=== PATIENT | male | born 1950 | race Caucasian/White ===

== ENCOUNTER 2020-01-27 10:13 | Outpatient (REF) | payer OTHER, MEDICARE, SELFPAY ==
[2020-01-27 13:09] LABS: Hemoglobin 14.9 g/dl (14.0-18.0); Mean Corpuscular HGB Conc 33.9 g/dl (31.0-36.0); Mean Corpuscular Hemoglobin 30.8 pg (27.0-33.0); Mean Corpuscular Volume 91.1 fL (80-98); Mean Platelet Volume 10.3 fL (9.4-12.4); Platelet Count 475 X10*3/uL (160-400); Red Blood Count 4.83 X10*6/uL (4.60-5.80); Red Cell Distribution Width 13.7 % (11.0-16.0); White Blood Count 11.8 X10*3/uL (4.8-10.8)
[2020-01-27 13:38] LABS: Alanine Aminotransferase 21 U/L (0-40); Albumin Level 4.2 g/dL (3.5-5.0); Alkaline Phosphatase 109 U/L (39-117); Anion Gap 12 (12-20); Aspartate Amino Transferase 20 U/L (5-37); Bilirubin Total 0.8 mg/dL (0.0-1.0); Blood Urea Nitrogen 16 mg/dL (9-16); Calcium 9.1 mg/dL (8.4-10.2); Carbon Dioxide 27 mmol/L (22-29); Chloride 104 mmol/L (96-108); Cholesterol 120 mg/dL; Estimated Glomerular Filt Rate > 60; Glucose Fasting 91 mg/dL (60-99); HDL Cholesterol 35 mg/dL; LDL Cholesterol Calculated 67 mg/dl; Potassium 3.9 mmol/l (3.3-5.1); Sodium 139 mmol/L (135-145); Total Protein 6.9 g/dL (6.5-8.0); Triglycerides 90 mg/dL
[2020-01-27 14:26] LABS: Prostate Specific Antigen Scr 0.47 ng/mL (<0.05-4.0)
== END 2020-01-27 10:14 | disposition home or self-care (01) ==
LOC: HO.MANLDS 10:13
PROVIDERS: PCP Internal Medicine; Visit Provider Internal Medicine
DX: E88.81 Metabolic syndrome and other insulin resistance (principal)
CPT/HCPCS: 36415; 80053; 80061; 84153; 85027

== ENCOUNTER 2020-09-14 11:12 | Outpatient (REF) | payer OTHER, MEDICARE, SELFPAY ==
[2020-09-14 12:57] LABS: MANUAL DIFF FLAG NO
[2020-09-14 13:01] LABS: Basophils Absolute Auto 0.1 X10*3/uL (0.0-0.2); Eosinophils Absolute Auto 2.3 X10*3/uL (0.0-0.4); Eosinophils Percent Auto 16.3 % (0-4); Hematocrit 44.6 % (42-52); Hemoglobin 14.9 g/dl (14.0-18.0); Imm Gran Abs Auto 0.04 X10*3/uL (0.00-0.03); Imm Gran Pct Auto 0.3 % (0.0-0.4); Lymphocytes Absolute Auto 3.4 X10*3/uL (1.2-4.9); Lymphocytes Percent Auto 24.2 % (20-40); Mean Corpuscular HGB Conc 33.4 g/dl (31.0-36.0); Mean Corpuscular Hemoglobin 30.7 pg (27.0-33.0); Mean Corpuscular Volume 91.8 fL (80-98); Mean Platelet Volume 10.5 fL (9.4-12.4); Monocytes Absolute Auto 1.3 X10*3/uL (0.1-1.2); Monocytes Percent Auto 9.3 % (2-11); Neutrophils Percent Auto 48.9 % (45-73); Platelet Count 424 X10*3/uL (160-400); Red Blood Count 4.86 X10*6/uL (4.60-5.80); Red Cell Distribution Width 14.2 % (11.0-16.0); White Blood Count 14.2 X10*3/uL (4.8-10.8)
[2020-09-14 13:32] LABS: Alanine Aminotransferase 23 U/L (0-40); Albumin Level 4.4 g/dL (3.5-5.0); Alkaline Phosphatase 119 U/L (39-117); Anion Gap 14 (12-20); Aspartate Amino Transferase 20 U/L (5-37); Bilirubin Total 0.7 mg/dL (0.0-1.0); Blood Urea Nitrogen 13 mg/dL (9-16); Carbon Dioxide 25 mmol/L (22-29); Chloride 105 mmol/L (96-108); Cholesterol 119 mg/dL; Estimated Glomerular Filt Rate > 60; Glucose Random 86 mg/dL (60-115); HDL Cholesterol 35 mg/dL; LDL Cholesterol Calculated 66 mg/dl; Potassium 4.1 mmol/L (3.3-5.1); Sodium 140 mmol/L (135-145); Total Protein 7.1 g/dL (6.5-8.0); Triglycerides 94 mg/dL
[2020-09-14 13:53] LABS: Prostate Specific Antigen Scr 0.52 ng/mL (<0.05-4.0)
== END 2020-09-14 11:13 | disposition home or self-care (01) ==
LOC: HO.MANLDS 11:12
PROVIDERS: PCP Internal Medicine; Visit Provider Internal Medicine
DX: Z00.01 Encounter for general adult medical examination with abnormal findings (principal); Z12.5 Encounter for screening for malignant neoplasm of prostate
CPT/HCPCS: 36415; 80053; 80061; 84153; 85025

== ENCOUNTER 2021-05-20 10:35 | Outpatient (REF) | payer OTHER, MEDICARE, SELFPAY ==
--- NOTE | ~2021-05-20 | XR_ITS ---
EXAMINATION: THORACIC AND LUMBAR SPINE CLINICAL INFORMATION: Lower and upper back pain COMPARISON: None TECHNIQUE: 3 views lumbar spine and 3 views thoracic spine FINDINGS: Lumbar spine: There is normal lumbar lordosis. The vertebral heights, alignment and disc heights are normal. No visible acute fracture, dislocation or lytic process seen. There is mild sclerosis of bilateral SI joints. The paravertebral soft tissues are normal. Dorsal spine: There is maintained thoracic kyphosis. The vertebral heights and alignment is normal. The disc heights are preserved. There is mild ventral spondylosis mid and lower dorsal spine. No acute fracture, lytic or sclerotic process seen. XR/XR thoracic spine 3V IMPRESSION: Unremarkable lumbar spine exam. Mild ventral spondylosis mid and lower dorsal spine. No acute fracture or dislocation.
--- NOTE | ~2021-05-20 | XR_ITS ---
EXAMINATION: THORACIC AND LUMBAR SPINE CLINICAL INFORMATION: Lower and upper back pain COMPARISON: None TECHNIQUE: 3 views lumbar spine and 3 views thoracic spine FINDINGS: Lumbar spine: There is normal lumbar lordosis. The vertebral heights, alignment and disc heights are normal. No visible acute fracture, dislocation or lytic process seen. There is mild sclerosis of bilateral SI joints. The paravertebral soft tissues are normal. Dorsal spine: There is maintained thoracic kyphosis. The vertebral heights and alignment is normal. The disc heights are preserved. There is mild ventral spondylosis mid and lower dorsal spine. No acute fracture, lytic or sclerotic process seen. XR/XR lumbar spine 2-3V IMPRESSION: Unremarkable lumbar spine exam. Mild ventral spondylosis mid and lower dorsal spine. No acute fracture or dislocation.
== END 2021-05-20 10:36 | disposition home or self-care (01) ==
LOC: HO.XRAY 10:35
PROVIDERS: PCP Internal Medicine; Visit Provider Internal Medicine
DX: M54.6 Pain in thoracic spine (principal); M54.50 Low back pain, unspecified
CPT/HCPCS: 72072; 72100

== ENCOUNTER 2021-11-08 09:00 | Outpatient (REF) | payer OTHER, MEDICARE, SELFPAY ==
[2021-11-08 11:02] LABS: Hematocrit 42.8 % (42.0-52.0); Hemoglobin 14.4 g/dl (14.0-18.0); Mean Corpuscular HGB Conc 33.6 g/dl (31.0-36.0); Mean Corpuscular Hemoglobin 29.9 pg (27.0-33.0); Mean Platelet Volume 10.4 fL (9.4-12.4); Platelet Count 498 X10*3/uL (160-400); Red Blood Count 4.81 X10*6/uL (4.60-5.80); Red Cell Distribution Width 13.7 % (11.0-16.0); White Blood Count 12.5 X10*3/uL (4.8-10.8)
[2021-11-08 11:13] LABS: Alanine Aminotransferase 22 U/L (0-40); Albumin Level 4.1 g/dL (3.5-5.0); Alkaline Phosphatase 122 U/L (39-117); Anion Gap 15 (12-20); Aspartate Amino Transferase 19 U/L (5-37); Bilirubin Total 0.5 mg/dL (0.0-1.0); Blood Urea Nitrogen 13 mg/dL (9-16); Calcium 9.5 mg/dL (8.4-10.2); Carbon Dioxide 27 mmol/L (22-29); Chloride 101 mmol/L (96-108); Cholesterol 135 mg/dL; Estimated Glomerular Filt Rate > 60; Glucose Fasting 109 mg/dL (60-99); HDL Cholesterol 34 mg/dL; LDL Cholesterol Calculated 86 mg/dl; Potassium 3.1 mmol/L (3.3-5.1); Sodium 140 mmol/L (135-145); Triglycerides 78 mg/dL
[2021-11-08 11:33] LABS: Prostate Specific Antigen 0.52 ng/mL (<0.05-4.0)
[2021-11-08 11:34] LABS: Estimated Average Glucose 120 mg/dL; Hemoglobin A1C 149.2851 umol/L; Hemoglobin A1c % 5.8 %
== END 2021-11-08 09:01 | disposition home or self-care (01) ==
LOC: HO.MANLDS 09:00
PROVIDERS: Visit Provider Internal Medicine
DX: Z12.5 Encounter for screening for malignant neoplasm of prostate (principal); I10 Essential (primary) hypertension
CPT/HCPCS: 36415; 80053; 80061; 83036; 84153; 85027

== ENCOUNTER 2022-11-14 08:01 | Outpatient (REF) | payer OTHER, MEDICARE, SELFPAY ==
[2022-11-14 14:08] LABS: Cholesterol 120 mg/dL (<200); HDL Cholesterol 33 mg/dL (>40); LDL Cholesterol Calculated 68 mg/dL (<100); Triglycerides 99 mg/dL (<150)
== END 2022-11-14 08:02 | disposition home or self-care (01) ==
LOC: HO.MANLDS 08:01
PROVIDERS: Visit Provider Internal Medicine
DX: E88.81 Metabolic syndrome and other insulin resistance (principal); E78.1 Pure hyperglyceridemia
CPT/HCPCS: 36415; 80061

== ENCOUNTER 2022-11-19 10:24 | Outpatient (REF) | payer OTHER, MEDICARE, SELFPAY ==
[2022-11-19 11:59] LABS: MANUAL DIFF FLAG NO
[2022-11-19 12:11] LABS: Basophils Absolute Auto 0.1 X10*3/uL (0.0-0.2); Basophils Percent Auto 1.1 % (0-2); Eosinophils Absolute Auto 0.4 X10*3/uL (0.0-0.4); Hematocrit 43.8 % (42.0-52.0); Hemoglobin 14.9 g/dl (14.0-18.0); Imm Gran Abs Auto 0.02 X10*3/uL (0.00-0.03); Imm Gran Pct Auto 0.2 % (0.0-0.4); Lymphocytes Absolute Auto 2.4 X10*3/uL (1.2-4.9); Lymphocytes Percent Auto 26.9 % (20-40); Mean Corpuscular Hemoglobin 30.5 pg (27.0-33.0); Mean Corpuscular Volume 89.6 fL (80.0-98.0); Mean Platelet Volume 10.6 fL (9.4-12.4); Monocytes Percent Auto 11.6 % (2-11); Neutrophils Absolute Auto 4.9 x10*3/uL (2.0-8.3); Neutrophils Percent Auto 56.2 % (45-73); Platelet Count 446 X10*3/uL (160-400); Red Blood Count 4.89 X10*6/uL (4.60-5.80); Red Cell Distribution Width 14.2 % (11.0-16.0); White Blood Count 8.7 X10*3/uL (4.8-10.8)
[2022-11-19 12:39] LABS: Alanine Aminotransferase 20 U/L (0-40); Albumin Level 4.2 g/dL (3.5-5.0); Alkaline Phosphatase 120 U/L (39-117); Anion Gap 13 (12-20); Aspartate Amino Transferase 23 U/L (5-37); Bilirubin Total 0.6 mg/dL (0.0-1.0); Blood Urea Nitrogen 17 mg/dL (9-16); Calcium 9.7 mg/dL (8.4-10.2); Carbon Dioxide 27 mmol/L (22-29); Chloride 103 mmol/L (96-108); Estimated Glomerular Filt Rate > 60; Glucose Random 88 mg/dL (60-115); Potassium 3.3 mmol/L (3.3-5.1); Sodium 140 mmol/L (135-145); Total Protein 7.2 g/dL (6.5-8.0)
[2022-11-19 13:00] LABS: Prostate Specific Antigen 0.67 ng/mL (<0.05-4.0)
== END 2022-11-19 10:25 | disposition home or self-care (01) ==
LOC: HO.MANLDS 10:24
PROVIDERS: Visit Provider Internal Medicine
DX: Z12.5 Encounter for screening for malignant neoplasm of prostate (principal); I10 Essential (primary) hypertension
CPT/HCPCS: 36415; 80053; 83735; 84153; 85025

== ENCOUNTER 2023-04-24 09:58 | Outpatient (REF) | payer OTHER, MEDICARE, SELFPAY ==
[2023-04-24 12:32] LABS: MANUAL DIFF FLAG NO
[2023-04-24 12:34] LABS: Basophils Absolute Auto 0.1 X10*3/uL (0.0-0.2); Basophils Percent Auto 0.8 % (0-2); Eosinophils Absolute Auto 0.4 X10*3/uL (0.0-0.4); Eosinophils Percent Auto 2.9 % (0-4); Hematocrit 43.7 % (42.0-52.0); Hemoglobin 15.4 g/dl (14.0-18.0); Imm Gran Abs Auto 0.03 X10*3/uL (0.00-0.03); Imm Gran Pct Auto 0.2 % (0.0-0.4); Lymphocytes Absolute Auto 3.5 X10*3/uL (1.2-4.9); Mean Corpuscular HGB Conc 35.2 g/dl (31.0-36.0); Mean Corpuscular Hemoglobin 31.5 pg (27.0-33.0); Mean Corpuscular Volume 89.4 fL (80.0-98.0); Mean Platelet Volume 10.4 fL (9.4-12.4); Monocytes Absolute Auto 1.5 X10*3/uL (0.1-1.2); Monocytes Percent Auto 11.6 % (2-11); Neutrophils Absolute Auto 7.1 x10*3/uL (2.0-8.3); Neutrophils Percent Auto 56.5 % (45-73); Platelet Count 433 X10*3/uL (160-400); Red Blood Count 4.89 X10*6/uL (4.60-5.80); Red Cell Distribution Width 13.7 % (11.0-16.0); White Blood Count 12.6 X10*3/uL (4.8-10.8)
[2023-04-24 13:00] LABS: Cholesterol 121 mg/dL (<200); HDL Cholesterol 39 mg/dL (>40); LDL Cholesterol Calculated 66 mg/dL (<100); Triglycerides 81 mg/dL (<150)
[2023-04-24 13:17] LABS: Prostate Specific Antigen 0.49 ng/mL (<0.05-4.0)
== END 2023-04-24 09:59 | disposition home or self-care (01) ==
LOC: HO.MANLDS 09:58
PROVIDERS: Visit Provider Physician Assistant
DX: Z12.5 Encounter for screening for malignant neoplasm of prostate (principal); I10 Essential (primary) hypertension
CPT/HCPCS: 36415; 80061; 84153; 85025

== ENCOUNTER 2023-06-02 07:08 | Outpatient (REF) | payer OTHER, MEDICARE, SELFPAY ==
--- NOTE | ~2023-06-02 | XR_ITS ---
EXAMINATION: XR CHEST CLINICAL INFORMATION: Chronic obstructive lung disease. COMPARISON: 04/19/2019 TECHNIQUE: Two views of the chest were obtained. FINDINGS: There is no gross pneumothorax. Lung volumes are low. Heart size within normal limits. Increased bibasilar patchy opacities may represent atelectasis/scar and/or an inflammatory/infectious process. No pleural effusion. Moderate degenerative changes in the thoracic spine. XR/XR chest 2V IMPRESSION: Increased bibasilar patchy opacities may represent atelectasis/scar and/or an inflammatory/infectious process. Correlation with clinical exam recommended. Recommend follow up imaging in 4-6 weeks to confirm resolution and exclude underlying pathology.
== END 2023-06-02 07:09 | disposition home or self-care (01) ==
LOC: HO.XRAY 07:08
PROVIDERS: PCP Internal Medicine; Visit Provider Internal Medicine
DX: J44.9 Chronic obstructive pulmonary disease, unspecified (principal)
CPT/HCPCS: 71046

== ENCOUNTER 2023-11-30 09:18 | Outpatient (REF) | payer OTHER, MEDICARE, SELFPAY ==
--- NOTE | ~2023-11-30 | XR_ITS ---
EXAMINATION: XR CHEST CLINICAL INFORMATION: Bilateral lung opacities. COMPARISON: 06/02/2023, 04/19/2019. TECHNIQUE: Two views of the chest were obtained. FINDINGS: There is no gross pneumothorax. Lung volumes are low. Dextroscoliosis of the thoracic spine with multilevel degenerative changes. Heart size is normal. No significant pleural effusion. Increased retrocardiac predominantly linear opacities, possibly representing atelectasis/scar. Interval decrease of previously noted bibasilar patchy opacities. No focal consolidation. XR/XR chest 2V IMPRESSION: Increased retrocardiac predominantly linear opacities, possibly representing atelectasis/scar. Interval decrease of previously noted bibasilar patchy opacities. No focal consolidation. This study was presented today November 30, 2023 for interpretation. Stat results provided at this time as requested by referring provider. Electronically signed by: Marichuy Singh MD 11/30/2023 11:10 AM EDT
== END 2023-11-30 09:19 | disposition home or self-care (01) ==
LOC: HO.XRAY 09:18
PROVIDERS: PCP Internal Medicine; Visit Provider Internal Medicine
DX: R91.8 Other nonspecific abnormal finding of lung field (principal)
CPT/HCPCS: 71046

== ENCOUNTER 2024-01-27 06:05 | Inpatient (IN) | payer OTHER, MEDICARE, SELFPAY ==
[2024-01-27] VITALS (26 sets, daily range): BP systolic 90–119; BP diastolic 45–79; PULSE 76–111; RESP 14–28; TEMP 36.2–37.4; O2SAT 88–98; BMI 30.5; BMI 33.1
--- NOTE | ~2024-01-27 | CT_ITS ---
EXAMINATION: CT ABDOMEN AND PELVIS WITH CONTRAST CLINICAL INFORMATION: Perforated appendicitis, elevated white blood cell count. Status post appendectomy. Evaluate for abscess. COMPARISON: 01/27/2024. TECHNIQUE: Multidetector volumetric images were obtained from the superior aspect of the liver through the pubic symphysis following administration 85 mL of Omnipaque 350 intravenous contrast. Sagittal and coronal reformatted images were obtained on the technologist's workstation. Oral contrast: No This CT examination was performed using dose optimization techniques as appropriate, variously including the following: *Automated exposure control *Adjustment of mA and/or kV according to patient size (this includes techniques or standardized protocols for targeted exams where dose is matched to indication/reason for exam; i.e. extremities or head) *Use of iterative reconstruction technique DLP: 475 mGy-cm FINDINGS: LUNG BASES: -There is a small right pleural effusion with possible loculation. -There is consolidation of the majority of the right lower lobe, and segmental portions of the left lower lobe, with air bronchograms, presumably atelectasis. Pneumonia is not excluded. -There is trace left effusion. LIVER, GALLBLADDER, AND BILIARY TREE: The liver is normal in size, shape, and attenuation. Redemonstration of a 3.2 x 2.7 cm segment 8 cyst. No additional focal liver lesion aside from minimal focal fatty infiltration abutting the falciform ligament. There is no intrahepatic or extrahepatic biliary ductal dilatation. The gallbladder again demonstrates a 6 mm mural-based enhancing oval focus suspicious for polyp (series 3, image 31). There are probable layering gravel sized gallstones. Gallbladder is otherwise normal. PANCREAS: Unremarkable. SPLEEN: Unremarkable. ADRENAL GLANDS: Unremarkable. KIDNEYS AND URETERS: The kidneys are normal in size, shape, and attenuation. Tiny bilateral cysts. No hydronephrosis, hydroureter, mass, or calculi seen. No perinephric stranding. BLADDER: Mild diffuse bladder wall thickening and an underdistended bladder. PERITONEUM/RETROPERITONEUM: -In the immediate right lobe subhepatic space, there is a thin curvilinear peripherally enhancing fluid collection abutting the lateral conal fascia and sclerosis of the inferior right hepatic lobe measuring an estimated 5.6 x 9.5 x 2.7 cm maximally. -Abutting the cecum, there is a thin curvilinear peripherally enhancing fluid collection with complex shape, maximal craniocaudal thickness of 1.5 cm, encircling the cecum and also involving a short segment of terminal ileum in the intramural space (intramural abscess). (Series 6, images 15-32). -Additionally, abutting the proximal descending colon, adjacent the lateral conal fascia is a third peripherally enhancing curvilinear fluid collection measuring 1.5 cm maximal thickness (series 3, image 57; series 6, image 42). -No free intraperitoneal air. -No ascites. GASTROINTESTINAL TRACT: -Status post appendectomy. There are residual inflammatory changes abutting the region of the appendix/cecum, with surgical clips present. See above for discussion of fluid collections. -Short segment wall thickening and mural enhancement of immediately adjacent loops of terminal ileum. Suspect an intramural enhancing abscess of the terminal ileum spanning a short segment abutting the CT, (series 6, images 17-23). This is not large enough to be drainable. -Curvilinear abscess abutting the cecum and lateral conal fascia on the right as discussed above. This may possibly connect with the subhepatic collection along the lateral conal fascia. -Colon is otherwise fluid filled without wall thickening. There is moderate diverticulosis of the sigmoid region. There is no rectal abnormality. -No small bowel obstruction. Minimal dilatation of proximal jejunal loops is likely reflective of ileus. -The stomach is decompressed. No duodenal abnormality. ABDOMINAL WALL: There are tiny bilateral fat-containing inguinal hernias, likely not clinically significant. There is a tiny umbilical fat-containing hernia. LYMPH NODES: No pathologic lymphadenopathy is present. Reactive lymphadenopathy in the retroperitoneum and mesentery of the small bowel/right colon. VASCULAR: -Aorta is mildly ectatic, heavily calcified, measuring 3.1 cm at the hiatus. No aortic aneurysm. 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 -There is no venous thrombosis. PELVIC VISCERA: Prostate is enlarged measuring 4.7 cm in diameter. There is an unchanged utricle cyst with a peripheral punctate calcification in the midline measuring 3.2 x 2.5 cm in axial plane. OSSEOUS STRUCTURES: No acute findings. CT/CT abdomen pelvis w IV con IMPRESSION: 1. Complex examination with at least 3 small peripheral enhancing fluid collections/abscesses in the right lower quadrant abutting the cecum, and involving intramurally a segment of terminal ileum, and within the subhepatic space as detailed. Appendix has been removed. 2. Consolidation of the majority of the right lower lobe, and segmental portions of the left lower lobe, with air bronchograms, presumably atelectasis. Pneumonia not excluded. 3. Trace left effusion and small right effusion, with appearance suggesting possible loculation. 4. Additional ancillary findings as discussed. Findings communicated with Dr. Pham via secure text at 10:30 AM, 02/02/2024. Electronically signed by: Dimitri Leavitt MD 02/02/2024 11:12 AM [facility]
--- NOTE | ~2024-01-27 | CT_ITS ---
EXAMINATION: CT ANGIOGRAM CHEST CLINICAL INFORMATION: Acute hypoxia. COMPARISON: Most recent chest radiograph dated 01/30/[address] abdomen/pelvis dated 01/27/2024. TECHNIQUE: Multiple axial images were obtained through the chest after the administration of 65 mL of Omnipaque 350 intravenous contrast. Extensive vascular post-processing including two-dimensional and three-dimensional reformatted images were created and reviewed on an independent workstation. This CT examination was performed using dose optimization techniques as appropriate, variously including the following: *Automated exposure control *Adjustment of mA and/or kV according to patient size (this includes techniques or standardized protocols for targeted exams where dose is matched to indication/reason for exam; i.e. extremities or head) *Use of iterative reconstruction technique DLP: 604 mGy-cm. FINDINGS: QUALITY OF STUDY/CONTRAST BOLUS: Suboptimal. PULMONARY ARTERIES: Evaluation of the pulmonary artery is significantly limited due to poor contrast bolus timing. No large central pulmonary embolism. THORACIC AORTA: No thoracic aortic dilatation or dissection. Atherosclerotic calcifications. LUNG: Right lower lobe airspace opacity with air bronchograms, new when compared to the prior examination and consistent with pneumonia. Patchy left basilar opacities which could represent atelectasis versus early pneumonia. The central airways are patent. No large pulmonary mass or nodule. PLEURA: Small right-sided pleural effusion, new when compared to the prior CT. No pneumothorax. MEDIASTINUM: No cardiomegaly. Trace pericardial effusion, new when compared to the prior CT. No mediastinal or hilar lymphadenopathy. No evidence of septal bowing or right heart strain. CORONARY ARTERY CALCIFICATION: Present. CHEST WALL/AXILLA: No axillary or internal mammary lymphadenopathy. OSSEOUS STRUCTURES: Unremarkable. UPPER ABDOMEN: Right upper quadrant/perihepatic ascites and stranding which is partially visualized and new when compared to the prior abdominal CT. No reflux of contrast into the hepatic veins to suggest elevated right heart pressures. CT/CT angio chest PE protocol IMPRESSION: 1. Evaluation of the pulmonary arteries is significantly limited due to poor contrast bolus timing. No large central pulmonary embolism. 2. Right lower lobe airspace opacity with air bronchograms, consistent with pneumonia. Patchy left basilar atelectasis versus early pneumonia. Small right-sided pleural effusion, new when compared to the prior CT. 3. Trace pericardial effusion, new when compared to the prior CT. 4. Right upper quadrant/perihepatic ascites and stranding which is partially visualized and new when compared to the prior abdominal CT. VTE: indeterminate. Electronically signed by: Abdullahi Rodriguez MD 01/30/2024 08:07 PM [facility] [place]
--- NOTE | ~2024-01-27 | XR_ITS ---
EXAMINATION: XR CHEST CLINICAL INFORMATION: Postop, desaturations, rule out aspiration. COMPARISON: Most recent chest radiograph dated 11/30/2023. TECHNIQUE: Frontal view of the chest was obtained. FINDINGS: Hypoinflation of the lungs with mild bibasilar atelectasis. No pleural effusion or pneumothorax. Stable cardiomediastinal silhouette. XR/XR chest 1V IMPRESSION: Hypoinflation of the lungs with mild bibasilar atelectasis. Electronically signed by: Abdullahi Rodriguez MD 01/27/2024 04:15 PM [facility]
--- NOTE | ~2024-01-27 | CT_ITS ---
EXAMINATION: CT ABDOMEN AND PELVIS WITH CONTRAST CLINICAL INFORMATION: Abdominal pain COMPARISON: None available. TECHNIQUE: Multidetector volumetric images were obtained from the superior aspect of the liver through the pubic symphysis following administration 100 mL of Omnipaque 350 intravenous contrast without reported immediate complications. Sagittal and coronal reformatted images were obtained on the technologist's workstation. Oral contrast: No This CT examination was performed using dose optimization techniques as appropriate, variously including the following: *Automated exposure control *Adjustment of mA and/or kV according to patient size (this includes techniques or standardized protocols for targeted exams where dose is matched to indication/reason for exam; i.e. extremities or head) *Use of iterative reconstruction technique DLP: 568 mGy-cm FINDINGS: LUNG BASES: Pulmonary patchy groundglass extending from the perihilar region to the periphery of the included lungs. 4 mm calcified pulmonary nodule, right lung base. Calcified plaques in the thoracic aorta and the coronary arteries. LIVER, GALLBLADDER, AND BILIARY TREE: Liver measures 15 cm. Decreased enhancement pattern. There is a 3.5 cm lobulated and septated cystic lesion in the dome right hepatic lobe. The main portal veins, hepatic veins and intrahepatic portions of the IVC are patent. There is a focal hypodensity adjacent to the falciform ligament. No intrahepatic or extrahepatic biliary ductal dilatation. No pericholecystic fluid collection or gallbladder wall thickening. There is an intraluminal 6 mm isodensity in the gallbladder. PANCREAS: No focal pancreatic mass. No main pancreatic ductal dilatation. No peripancreatic fluid collections. SPLEEN: 6 cm. No focal lesion. ADRENAL GLANDS: No nodular lesions KIDNEYS AND URETERS: Multifocal cystic lesions in the the renal parenchyma bilaterally, the largest in the midportion/lower pole junction of the left kidney measures 1.5 cm. No renal mass. No hydronephrosis. Linear calcifications in the left renal hilum likely vascular. BLADDER: Fluid-filled nearly collapsed. GASTROINTESTINAL TRACT: Appendix is enlarged and measures 1.3 cm in maximum dimension with mucosal thickening/edematous wall fluid-filled and periappendiceal edema pattern. There is appendicolith. There is a grouped of the fluid-filled prominent small bowel loops. There is a fluid in the antimesenteric margin of the right lower peritoneal cavity. No peripheral enhancing fluid collection. No overt extraluminal gas/pneumoperitoneum. There is a trace of fluid in the right paracolic gutter. No pneumatosis intestinalis. Numerous diverticula in the left hemicolon most in the sigmoid colon. Collapsed appearance of the left hemicolon.. ABDOMINAL WALL: Fat-containing umbilical hernia. LYMPH NODES: Prominent nonspecific lymph nodes in the mesentery and retroperitoneum. VASCULAR: Irregular shaped mixed plaques throughout the abdominal aorta wall and the iliac arteries. There is a 1.5 cm peripheral calcified vascular enhancing saccular abnormality at the 4:00 position right common iliac artery origin. No aneurysm or dissection, abdominal aorta. Calcified plaques at the origin of the mesenteric arteries and main renal arteries. PELVIC VISCERA: Normal-sized prostate gland with punctate complications. Seminal vesicles are not enlarged. OSSEOUS STRUCTURES: Multilevel thoracolumbar spondylosis without acute fracture. Grade 1 retrolisthesis L5-S1 likely degenerative in nature similar finding at L3-4.. CT/CT abdomen pelvis w IV con IMPRESSION: Acute, likely perforated appendicitis with periappendiceal phlegmon and three-dimensional ileus. Discussed with Sheron Merino at 7:50 AM. Cholelithiasis. Probable hemangioma right hepatic lobe and septated cystic lesion dome right hepatic lobe. Mild interstitial edema. Coronary artery disease and atherosclerosis disease. 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 Renal cysts, bilaterally. Diverticular disease, left hemicolon. Fleischner guidelines were followed. Electronically signed by: Klever Em MD 01/27/2024 08:04 AM [facility]
--- NOTE | ~2024-01-27 | XR_ITS ---
EXAMINATION: XR CHEST CLINICAL INFORMATION: hypoxia COMPARISON: Chest x-ray dated 01/27/2024. TECHNIQUE: AP upright portable view of the chest was obtained. FINDINGS: EKG leads overlie the chest. The cardiomediastinal silhouette is within normal limits in size. Calcification of the aortic arch is seen. Lungs bilaterally are symmetrically hypoinflated with patchy and reticular opacities seen in the lung bases bilaterally, slightly progressive compared to the prior exam. No significant pleural effusion or pneumothorax. No pulmonary edema. Bony structures are unremarkable. XR/XR chest 1V IMPRESSION: Low lung volumes with progressive bibasilar opacities, likely due to atelectasis. Developing pneumonia cannot be excluded, especially in the right lung base. Electronically signed by: Nneka Ontiveros MD 01/30/2024 07:30 AM [facility]
--- NOTE | ~2024-01-27 | CT_ITS ---
CLINICAL HISTORY: Subhepatic abscess PROCEDURES: 1. Limited preprocedure CT of the abdomen. Permanent images saved in PACS. 2. CT-guided drainage of the subhepatic abscess. 3. Limited post procedure CT of the abdomen. Permanent images saved in PACS. CLINICIANS: Bhargav Trent PA-C Preprocedural imaging reviewed with Dr. Rodrigez MEDICATIONS: -Versed 1.5 mg, Fentanyl 75 mcg, and lidocaine 1% 10 mL SQ -Antibiotics: None -For additional details, please see nursing flowsheet. COMPLICATIONS: None ESTIMATED BLOOD LOSS: < 5 ml CONTRAST: None SPECIMENS: A specimen was sent for culture. MODERATE SEDATION TIME: 24 min PROCEDURE NOTE: The procedure, risks, benefits, and alternatives were carefully explained to the patient and written informed consent was obtained. The patient was placed in the left lateral decubitus position on the CT table. A timeout was performed. A limited CT of the abdomen was performed to localize the subhepatic fluid collection and choose appropriate needle entry and trajectory. The patient was prepped and draped in usual sterile fashion. The skin and subcutaneous tissues were anesthetized with lidocaine. Under CT guidance, a trocar was advanced to the fluid collection. Purulent fluid was immediately aspirated. A 0.0035 J wire was inserted through the the trocar needle and coiled in the fluid collection. The trocar needle was then removed over the wire. The tract was then serially dilated. Over the wire, a 10 fr all-purpose drainage catheter was advanced and coiled into the fluid collection under CT guidance. The wire was then removed. A total of 20 ml of purulent fluid was removed and sent for culture. The catheter was secured to the skin with a 2-0 nylon suture. A WILLAM bulb was then attached to the drainage catheter. A limited postprocedure CT was then obtained. The patient was stable after the procedure and was transferred to the post anesthesia care unit. The procedure was done under moderate sedation with a dedicated nurse for monitoring of vital signs. CT/CT guided drainage Impression: CT guided drainage of subhepatic abscess. This procedure was performed by Bhargav Trent PA-C and supervised by Dr. Rodrigez. Electronically signed by: Armand Rodrigez MD 03/08/2024 02:36 PM [facility]
--- NOTE | ~2024-01-27 | CT_ITS ---
EXAMINATION: CT ABDOMEN AND PELVIS WITH CONTRAST CLINICAL INFORMATION: Perforated appendicitis. Abscess. Follow-up. COMPARISON: February 02, 2024 and January 27, 2024. TECHNIQUE: Multidetector volumetric images were obtained from the superior aspect of the liver through the pubic symphysis following administration 85 mL of Omnipaque 350 intravenous contrast. Sagittal and coronal reformatted images were obtained on the technologist's workstation. Oral contrast: No This CT examination was performed using dose optimization techniques as appropriate, variously including the following: *Automated exposure control *Adjustment of mA and/or kV according to patient size (this includes techniques or standardized protocols for targeted exams where dose is matched to indication/reason for exam; i.e. extremities or head) *Use of iterative reconstruction technique DLP: 630 mGy-cm FINDINGS: LUNG BASES: Mild elevation of the right hemidiaphragm. Bibasilar atelectasis, right greater than left. No pleural effusion. Heart normal in size. Coronary arterial calcification. No pericardial effusion. LIVER, GALLBLADDER, AND BILIARY TREE: Lentiform anterior subcapsular fluid collection measuring approximately 0.9 cm in thickness by 3.8 cm in length (image 15, series 3), having measured approximately 1.2 x 5.3 cm on most recent prior study from February 02, 2024. No change in approximately 3.5 cm or less benign hepatic cysts, by my measurements. The liver appears unremarkable in size, shape, and attenuation. No focal hepatic lesion or biliary ductal dilatation is appreciated. Unremarkable appearance of the gallbladder. PANCREAS: Unremarkable SPLEEN: Unremarkable ADRENAL GLANDS: Unremarkable KIDNEYS AND URETERS: 1.7 cm or less benign bilateral simple renal cysts for which no further dedicated follow-up imaging as indicated. The kidneys otherwise appear unremarkable in size, shape, and attenuation. No hydronephrosis, hydroureter, or calculi seen. BLADDER: Suspect muscular hypertrophy. GASTROINTESTINAL TRACT/PERITONEAL CAVITY: Surgical clip in the region of the caput cecum. Induration of fat in the region of a presumed appendectomy surgical bed. [place], fluid-containing structure at this location, the fluid density portion of which measures approximately 1.9 x 0.5 cm (image 58, series 3), having measured approximately 3.9 x 0.7 cm on February 02, 2024, by my measurements. [place] loop of a percutaneous drainage catheter lies just inferior and posterior to the right hepatic lobe (image 31, series 3), with minimal residual fluid in this region. Rectovesical pouch collection, the fluid portion of which measures up to approximately 2.4 x 1.6 cm (image 78, series 3), having measured approximately 3.0 x 2.3 cm on most recent prior study, by my measurements. Diverticulosis predominantly involving the sigmoid and descending colon, without evidence of diverticulitis. Normal-appearing distal ileum. The stomach and small bowel appear unremarkable. No free intraperitoneal air or free intraperitoneal fluid is identified. ABDOMINAL WALL: No significant hernia is appreciated. LYMPH NODES: No evidence of adenopathy by size criteria. VASCULAR: Aortoiliac atherosclerosis. Mildly ectatic infrarenal abdominal aorta. 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 PELVIC VISCERA: Mildly enlarged prostate. OSSEOUS STRUCTURES: Unremarkable CT/CT abdomen pelvis w IV con IMPRESSION: Surgical clip in the region of the caput cecum. Induration of fat in the region of a presumed appendectomy surgical bed. [place], fluid-containing structure at this location, the fluid density portion of which measures approximately 1.9 x 0.5 cm, having measured approximately 3.9 x 0.7 cm on recent prior study from February 02, 2024, by my measurements. [place] loop of a percutaneous drainage catheter lies just inferior and posterior to the right hepatic lobe, with minimal residual fluid in this region. Rectovesical pouch collection, the fluid portion of which measures up to approximately 2.4 x 1.6 cm, having measured approximately 3.0 x 2.3 cm on most recent prior study, by my measurements. Lentiform anterior subcapsular fluid collection measuring approximately 0.9 cm in thickness by 3.8 cm in length, having measured approximately 1.2 x 5.3 cm on most recent prior study from February 02, 2024. Additional findings as above. Electronically signed by: Farrukh Duran MD 02/10/2024 11:28 AM [facility] [place]
[2024-01-27 06:40] LABS: Hematocrit 45.2 % (42.0-52.0); Hemoglobin 16.1 g/dl (14.0-18.0); Mean Corpuscular HGB Conc 35.6 g/dl (31.0-36.0); Mean Corpuscular Volume 86.9 fL (80.0-98.0); Mean Platelet Volume 9.7 fL (9.4-12.4); Platelet Count 410 X10*3/uL (160-400); White Blood Count 28.3 X10*3/uL (4.8-10.8)
--- NOTE | 2024-01-27 06:50 | ED_ITS ---
HPI - General Adult General Chief complaint: Abdominal Pain Stated complaint: abd pain Time Seen by Provider: 01/27/24 06:48 Source: patient Mode of arrival: ambulatory Limitations: no limitations History of Present Illness ED Provider: Sheron Merino PA-C HPI narrative: Patient is a 73 year old assigned male at with a history of HTN presenting to the emergency department today with abdominal pain and nausea. Patient states that over the last 2 days he has had nausea and abdominal pain that is worsening. Patient denies any dizziness, lightheadedness, vomiting, fever, chills, blurry vision, double vision, loss of vision, chest pain, difficulty breathing, shortness of breath, back pain, night sweats, pain with urination, increased urinary frequency, increased urinary urgency, blood in his urine or stool, syncope or a near syncopal episode, recent trauma or falls, bowel incontinence, bladder incontinence, or any other complaints at this time. Onset (ago): day(s) (2) Location: abdomen Relieving factors: none Exacerbating factors: none Associated symptoms: nausea/vomiting Treatments prior to arrival: none Related Data Home Medications ?Medication ?Instructions ?Recorded ?Confirmed alendronate 70 mg tablet 70 mg PO QWEEK 01/27/24 atorvastatin 80 mg tablet 80 mg PO BEDTIME 01/27/24 chlorthalidone 15 mg tablet 15 mg PO DAILY 01/27/24 (Thalitone) cilostazol 100 mg tablet 100 mg PO DAILY 01/27/24 fluticasone propionate 50 1 spray intranasal DAILY 01/27/24 mcg/actuation nasal spray,suspension sildenafil 100 mg tablet 100 mg PO DAILY PRN Erectile 01/27/24 Dysfunction triamterene 37.5 1 tab PO DAILY 01/27/24 mg-hydrochlorothiazide 25 mg tablet Allergies Allergy/AdvReac Type Severity Reaction Status Date / Time No Known Allergies Allergy Verified 01/27/24 06:11 Review of Systems 2 Constitutional: Constitutional: Reports no additional constitutional complaints, Denies chills, Denies fever(s) and Denies night sweats Eyes: Eyes: Reports no additional eye complaints, Denies blurry vision, Denies change in vision, Denies diplopia, Denies eye discharge, Denies loss of vision and Denies eye pain ENT: Denies dizziness Cardiovascular: Cardiovascular: Reports no additional cardiovascular complaints, Denies chest pain, Denies lightheadedness, Denies Loss of Consciousness and Denies dyspnea Respiratory: Respiratory: Reports no additional respiratory complaints and Denies dyspnea Gastrointestinal: Gastrointestinal: Reports no additional gastrointestinal complaints, Reports abdominal pain, Denies melena, Denies hematochezia, Denies change in bowel habits, Denies change in stool character, Reports nausea and Denies vomiting Genitourinary: Genitourinary: Reports no additional male genitourinary complaints, Denies hematuria, Denies oliguria, Denies difficulty urinating, Denies dysuria, Denies urinary frequency, Denies urinary hesitancy, Denies urinary incontinence and Denies urinary urgency Musculoskeletal: Musculoskeletal: Reports no additional musculoskeletal complaints, Denies numbness and Denies tingling Neurologic: Denies dizziness, Denies loss of vision, Denies numbness and Denies tingling Psychiatric: Psychiatric: Reports no additional psychiatric complaints Endocrine: Endocrine: Reports no additional endocrine complaints Hematologic/Lymphatic: Hematologic/Lymphatic: Reports no additional hematologic/lymphatic complaints Allergic/Immunologic: Allergic/Immunologic: Reports no additional allergic/immunologic complaints PMFSH Past Medical History Attestation statement: The following information was validated with the patient. Source: old records reviewed and nursing notes reviewed Medical History (Updated 01/27/24 @ 09:44 by PADMINI Weller) Peripheral vascular disease Hypertension Social History Social History Alcohol intake: never Smoked in Last 30 Days: No Use of substances other than those prescribed or required for medical reasons: No Advance Directives: No Advance Directives Information Provided: Yes Physical Exam ED Vital Signs: Vital Signs - 24 hr 01/27/24 06:09 01/27/24 08:05 01/27/24 08:07 Temperature 97.8 F 98.7 F Pulse Rate 111 H 99 Respiratory Rate 20 18 Blood Pressure 113/76 102/63 Pulse Oximetry 95 88 L 93 Oxygen Delivery Method Room Air Room Air Nasal Cannula Oxygen Flow Rate 2 BMI result Body Mass Index 30.5 Const General: cooperative, no acute distress, alert and awake Nutritional Appearance: well nourished Orientation/consciousness: patient oriented x3 Limitations: no limitations HENMT Head: Yes normal to inspection and Yes atraumatic Ears: hearing grossly normal bilaterally and external ears normal General nose exam: Normal external nose present, no nasal discharge noted and no epistaxis Face and sinus: Yes normal facial exam, No abrasion and No laceration Mouth: Normal oral and palatal mucosa present, no drooling and no muffled voice Eyes General: appearance normal, both eyes and all related structures Periorbital: periorbital findings normal Eyelids: Yes eyelids normal Conjunctivae: conjunctivae normal Pupils: Equal, round and reactive pupils present EOM: EOMs intact bilaterally Neck Neck: Yes normal visual inspection, Yes full ROM and Yes no lymphadenopathy Chest Chest palpation & inspection: normal inspection of the chest Resp Effort & Inspection: normal respiratory effort and able to speak in complete sentences Cardio Rate: tachycardic Rhythm: regular rhythm GI Inspection: Yes normal to inspection Palpation (GI): Tenderness to palpation present (GI), no guarding and Rigid due to palpation Neuro General: patient oriented x3 and moves all extremities Cranial nerves: Yes Equal, round and reactive pupils present Cognition (Neuro): normal cognition Extrem General: Yes normal to inspection, Yes full ROM and Yes capillary refill normal Psych Appearance: grossly normal Mental Status: mental status grossly normal Affect: normal affect Attitude: cooperative Thought process: Normal thought process present Thought content: Normal thought content present Insight: Good insight present (Psych) Medications Administered Discontinued Medications Generic Name Dose Route Start Last Admin Trade Name Freq PRN Reason Stop Dose Admin Ceftriaxone Sodium 1 gm 01/27/24 06:50 01/27/24 07:11 Ceftriaxone Sodium 1 Gm Vial IVPUSH 01/27/24 06:51 1 gm ONCE ONE Administration Acetaminophen 1,000 mg in 100 mls @ 400 mls/hr 01/27/24 08:11 01/27/24 08:52 Ofirmev IV 01/27/24 08:25 Infused ONCE ONE Infusion Sodium Chloride 1,983 mls @ 1,983 mls/hr 01/27/24 08:14 01/27/24 08:17 Ns IV 01/27/24 09:13 1,983 mls/hr .Q1H STA Administration Iohexol 100 ml 01/27/24 07:26 01/27/24 07:31 Iohexol 350 Mg/Ml 100 Ml Infus..Btl IV 01/27/24 07:27 100 ml ONCE ONE Administration Morphine Sulfate 4 mg 01/27/24 06:59 01/27/24 07:11 Morphine Sulfate 4 Mg/Ml Cartridge IVPUSH 01/27/24 07:00 4 mg ONCE ONE Administration Protocol Ondansetron HCl 4 mg 01/27/24 06:50 01/27/24 07:11 Ondansetron Hcl 4 Mg/2 Ml Vial IVPUSH 01/27/24 06:51 4 mg ONCE ONE Administration Medical Decision Making Medical Decision Making [facility] Narrative: Patient is a 73 year old assigned male at with a history of HTN presenting to the emergency department today with abdominal pain and nausea. Patient's physical exam was as noted in the physical exam portion of this note. Patient's blood work showed a WBC count of 28.3 with a left shift, lactic of 2.2, total bili of 1.8, and direct bili of 0.6. Patient's CT abdomen/pelvis showed evidence of a ruptured appendix. I spoke to Dr. Cedeno, the surgeon position description manager, who stated he'd take the patient to the operating room at 1030 this morning. I explained my physical exam findings as well as all test results to the patient and the patient's . I answered all questions asked by the patient and the patient's . Patient received 30mg/kg based on ideal body weight of NS as well as 1 gram of ceftriaxone, IV morphine, and IV Zofran which, upon re-evaluation, he stated it helped his pain and nausea some. Patient's clinical presentation concerning for sepsis (@0814). Patient and the patient's verbalized agreement and understanding with this treatment plan and admission to the operating room with Dr. Cedeno. Differential Diagnosis Differential Diagnoses: The differential diagnosis associated with the presentation includes Ruptured appendix Appendicitis UTI Sepsis Perforated bowel Diverticulitis Admission/Observation Consideration of admission/observation: Escalation of care including admission/observation considered Patient to go to the OR with Dr. Cedeno then admitted Consult Healthcare Provider Management of the patient was discussed with: Manufacturer'S Service Representative (spoke to the surgical team as noted in the MDM Rationale portion of this note.) Lab Data [facility] Lab Attestation statement: I reviewed the patient's lab results. My interpretation of these results are in the MDM Rationale portion of this note. 01/27/24 06:34 01/27/24 06:34 Labs: Lab Results 01/27/24 01/27/24 Range/Units 06:34 07:08 WBC 28.3 H (4.8-10.8) X10*3/uL RBC 5.20 (4.60-5.80) X10*6/uL Hgb 16.1 (14.0-18.0) g/dl Hct 45.2 (42.0-52.0) % MCV 86.9 (80.0-98.0) fL MCH 31.0 (27.0-33.0) pg MCHC 35.6 (31.0-36.0) g/dl RDW 14.0 (11.0-16.0) % Plt Count 410 H (160-400) X10*3/uL MPV 9.7 (9.4-12.4) fL Immature Gran % (Auto) Cancelled Neut % (Auto) Cancelled Lymph % (Auto) Cancelled Bowie % (Auto) Cancelled Eos % (Auto) Cancelled Baso % (Auto) Cancelled Lymph # (Auto) Cancelled Bowie # (Auto) Cancelled Eos # (Auto) Cancelled Baso # (Auto) Cancelled Abs Immat Gran (auto) Cancelled Absolute Neuts (auto) Cancelled Absolute Nucleated RBC 0.000 (0.0-0.012) X10*3/uL Nucleated RBC % (auto) 0.0 (0.0-0.2) /100WBC Neutrophils % (Manual) 89 H (45-73) % Band Neutrophils % 2 L (3-5) % Lymphocytes % (Manual) 4 L (20-40) % Monocytes % (Manual) 4 (2-11) % Metamyelocytes % 1 % Abs Neuts (Manual) 25.8 H (2.0-8.3) X10*3/uL Lymphocytes # (Manual) 1.1 L (1.2-4.9) X10*3/uL Monocytes # (Manual) 1.1 (0.1-1.2) X10*3/uL Metamyelocytes # 0.3 X10*3/uL Platelet Estimate NORMAL (NORMAL) Plt Morphology Comment NORMAL RBC Morphology NOTED Durant Cells 1+ (0-2) /OIF Smear Tech's Comments MANUAL DIFF Sodium 135 (135-145) mmol/L Potassium 3.6 (3.3-5.1) mmol/L Chloride 102 (96-108) mmol/L Carbon Dioxide 20 L (22-29) mmol/L Anion Gap 17 (12-20) BUN 15 (9-16) mg/dL Creatinine 1.30 (0.5-1.4) mg/dL Estim Creat Clear Calc 55.3 Estimated GFR 54 Random Glucose 151 H (60-115) mg/dL Lactic Acid 2.2 H* (0.5-2.0) mmol/L Calcium 9.3 (8.4-10.2) mg/dL Total Bilirubin 1.8 H (0.0-1.0) mg/dL Direct Bilirubin 0.6 H (0.0-0.5) mg/dL AST 24 (5-37) U/L ALT 30 (0-40) U/L Alkaline Phosphatase 121 H (39-117) U/L Total Protein 7.6 (6.5-8.0) g/dL Albumin 4.4 (3.5-5.0) g/dL Lipase 8 (8-78) U/L Independent Interpretation I performed an independent interpretation of an: CT Scan Interpretation: My interpretation is in agreement with the radiologist's impression of this imaging study. LEXAMINATION: CT ABDOMEN AND PELVIS WITH CONTRAST CLINICAL INFORMATION: Abdominal pain COMPARISON: None available. TECHNIQUE: Multidetector volumetric images were obtained from the superior aspect of the liver through the pubic symphysis following administration 100 mL of Omnipaque 350 intravenous contrast without reported immediate complications. Sagittal and coronal reformatted images were obtained on the technologist's workstation. Oral contrast: No This CT examination was performed using dose optimization techniques as appropriate, variously including the following: *Automated exposure control *Adjustment of mA and/or kV according to patient size (this includes or standardized protocols for targeted exams where dose is matched to indication/reason for exam; i.e. extremities or head) *Use of iterative reconstruction technique DLP: 568 mGy-cm FINDINGS: LUNG BASES: Pulmonary patchy groundglass extending from the perihilar region to the periphery of the included lungs. 4 mm calcified pulmonary nodule, right lung base. Calcified plaques in the thoracic aorta and the coronary arteries. LIVER, GALLBLADDER, AND BILIARY TREE: Liver measures 15 cm. Decreased enhancement pattern. There is a 3.5 cm lobulated and septated cystic lesion in the dome right hepatic lobe. The main portal veins, hepatic veins and intrahepatic portions of the IVC are patent. There is a focal hypodensity adjacent to the falciform ligament. No intrahepatic or extrahepatic biliary ductal dilatation. No pericholecystic fluid collection or gallbladder wall thickening. There is an intraluminal 6 mm isodensity in the gallbladder. PANCREAS: No focal pancreatic mass. No main pancreatic ductal dilatation. No peripancreatic fluid collections. SPLEEN: 6 cm. No focal lesion. ADRENAL GLANDS: No nodular lesions KIDNEYS AND URETERS: Multifocal cystic lesions in the the renal parenchyma bilaterally, the largest in the midportion/lower pole junction of the left kidney measures 1.5 cm. No renal mass. No hydronephrosis. Linear calcifications in the left renal hilum likely vascular. BLADDER: Fluid-filled nearly collapsed. GASTROINTESTINAL TRACT: Appendix is enlarged and measures 1.3 cm in maximum dimension with mucosal thickening/edematous wall fluid-filled and periappendiceal edema pattern. There is appendicolith. There is a grouped of the fluid-filled prominent small bowel loops. There is a fluid in the antimesenteric margin of the right lower peritoneal cavity. No peripheral enhancing fluid collection. No overt extraluminal gas/pneumoperitoneum. There is a trace of fluid in the right paracolic gutter. No pneumatosis intestinalis. Numerous diverticula in the left hemicolon most in the sigmoid colon. Collapsed appearance of the left hemicolon.. ABDOMINAL WALL: Fat-containing umbilical hernia. LYMPH NODES: Prominent nonspecific lymph nodes in the mesentery and retroperitoneum. VASCULAR: Irregular shaped mixed plaques throughout the abdominal aorta wall and the iliac arteries. There is a 1.5 cm peripheral calcified vascular enhancing saccular abnormality at the 4:00 position right common iliac artery origin. No aneurysm or dissection, abdominal aorta. Calcified plaques at the origin of the mesenteric arteries and main renal arteries. PELVIC VISCERA: Normal-sized prostate gland with punctate complications. Seminal vesicles are not enlarged. OSSEOUS STRUCTURES: Multilevel thoracolumbar spondylosis without acute fracture. Grade 1 retrolisthesis L5-S1 likely degenerative in nature similar finding at L3-4.. CT/CT abdomen pelvis w IV con IMPRESSION: Acute, likely perforated appendicitis with periappendiceal phlegmon and three- dimensional ileus. (Discussed with Sheron Merino at 7:50 AM.) Cholelithiasis. Probable hemangioma right hepatic lobe and septated cystic lesion dome right hepatic lobe. Mild interstitial edema. Coronary artery disease and atherosclerosis disease. 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 Renal cysts, bilaterally. Diverticular disease, left hemicolon. Fleischner guidelines were followed. Electronically signed by: Klever Em MD 01/27/2024 08:04 AM EST Dictated By: Klever Levi MD Signed By: Electronically signed by Klever Carreon MD 01/27/24 0804 Radiology Impression Discussion of test interpretation with radiology: I have reviewed the radiologist's reading. Independent Historian Clinical information obtained from an independent historian. History obtained from or confirmed by: Spouse (patient's provided additional history and confirmed the history provided by the patient.) Critical Care Time Critical Care Time Critical Care Time: Yes Total Critical Care Time: 55 Attestation: I spent 55 minutes of Critical Care Time with this patient. This does not include time spent on separately reported billable procedures. Discharge Plan Discharge Clinical Impression: Ruptured appendicitis, Sepsis Patient Disposition: Admitted As Inpatient
--- NOTE | 2024-01-27 06:53 | PC.NURSE ---
Pt reports that since thursday having abdominal pain and one episode of dry heaving. Abdominal distention and rebound tenderness present. Pt seen at [facility] and told it was probably constipation, tok otc meds and had bm yesterday but no relief in abdominal pain. Pt reports 10/10 non radiating pain. Labs drawn by tech, #20IV line placed in L-AC.
[2024-01-27 06:55] LABS: Alanine Aminotransferase 30 U/L (0-40); Albumin Level 4.4 g/dL (3.5-5.0); Alkaline Phosphatase 121 U/L (39-117); Anion Gap 17 (12-20); Aspartate Amino Transferase 24 U/L (5-37); Bilirubin Direct 0.6 mg/dL (0.0-0.5); Bilirubin Total 1.8 mg/dL (0.0-1.0); Blood Urea Nitrogen 15 mg/dL (9-16); Calcium 9.3 mg/dL (8.4-10.2); Carbon Dioxide 20 mmol/L (22-29); Chloride 102 mmol/L (96-108); Creatinine Clr Calc Pharmacy 55.3; Estimated Glomerular Filt Rate 54; Glucose Random 151 mg/dL (60-115); Lipase 8 U/L (8-78); Potassium 3.6 mmol/L (3.3-5.1); Sodium 135 mmol/L (135-145); Total Protein 7.6 g/dL (6.5-8.0)
--- NOTE | 2024-01-27 07:00 | PC.NURSE ---
Per Sheron [place], no IVF bolus at this time.
[2024-01-27 07:11] LABS: SLIDE REVIEW MANUAL DIFF
[2024-01-27] MEDS: cefTRIAXone sodium 1 GM VIAL IVPUSH (07:11)
[2024-01-27] MEDS: ondansetron HCL 4 MG/2 ML VIAL IVPUSH (07:11)
[2024-01-27] MEDS: Morphine Sulfate 4 MG/ML CARTRIDGE IVPUSH (07:11)
[2024-01-27 07:20] LABS: Band Neutrophils Percent 2 % (3-5); Lymphocytes Absolute Manual 1.1 X10*3/uL (1.2-4.9); Lymphocytes Percent Manual 4 % (20-40); Metamyelocytes Absolute 0.3 X10*3/uL; Metamyelocytes Percent 1 %; Monocytes Absolute Manual 1.1 X10*3/uL (0.1-1.2); Monocytes Percent Manual 4 % (2-11); Neutrophils Absolute Manual 25.8 X10*3/uL (2.0-8.3); Neutrophils Percent Manual 89 % (45-73); RBC Morphology NOTED
--- NOTE | 2024-01-27 07:20 | PC.NURSE ---
Pt to radiology at this time.
[2024-01-27 07:21] LABS: Burr Cells 1+ (0-2) /OIF; Platelet Estimate NORMAL (NORMAL); Platelet Morphology Comment NORMAL
[2024-01-27 07:29] LABS: Lactic Acid 2.2 mmol/L (0.5-2.0)
[2024-01-27] MEDS: iohexoL 350 MG/ML 100 ML INFUS..BTL IV (07:31)
[2024-01-27] MEDS: 0.9 % Sodium Chloride 1,983 ML 1983 ML IV (08:17)
[2024-01-27] MEDS: Acetaminophen 1,000 MG/100 ML PIGGYBACK 400 MG IV ×3 (08:22→20:40)
--- NOTE | 2024-01-27 08:47 | P.HPGS_ITS ---
History of Present Illness History of Present Illness Date of Service: 01/27/24 Chief complaint: abd pain Narrative: Matias Bryant is a 73 year old male presenting with complaints of abdominal pain in the right lower quadrant. The pain began 48 hours ago and was located in the lower abdomen. He was seen in the walk-in clinic yesterday and was told he had abdominal bloating. He was given a stool softener and was able to have a bowel movement with no improvement in his pain. The pain is noted constantly with increased severity with walking. Denies a previous history of similar symptoms. He denied fever or chills but did report nausea with dry heaving. He presented to the emergency department and was found to have a rigid abdomen. WBC is markedly elevated at 28,000. CT abdomen and pelvis revealed a distended appendix with fluid surrounding the appendix suggestive of a perforation. Review of Systems 2 Review of Systems: Yes all other systems are reviewed and are negative Constitutional: Constitutional: Denies chills, Denies fever(s), Denies headache(s), Reports poor appetite and Denies weakness ENT: Denies headache(s) Cardiovascular: Cardiovascular: Denies chest pain, Denies irregular heart rhythm, Denies palpitations and Denies dyspnea Respiratory: Respiratory: Denies no additional respiratory complaints, Denies cough, Denies excessive phlegm production and Denies dyspnea Gastrointestinal: Gastrointestinal: Reports abdominal pain, Reports bloating, Denies change in bowel habits, Reports constipation, Denies heartburn, Denies diarrhea, Reports nausea and Reports vomiting Genitourinary: Genitourinary: Denies difficulty urinating and Denies urinary frequency Musculoskeletal: Musculoskeletal: Denies back pain, Denies muscle weakness and Denies numbness Integumentary/Breasts: Skin/Breast: Denies changing lesions and Denies unusual bruising Neurologic: Denies headache(s), Denies numbness, Denies paresthesias and Denies weakness Psychiatric: Psychiatric: Denies anxiety and Denies depression Endocrine: Endocrine: Denies palpitations Hematologic/Lymphatic: Hematologic/Lymphatic: Denies lymphadenopathy [facility] Past Medical History Medical History (Updated 01/27/24 @ 08:50 by Gentry Pham MD) Peripheral vascular disease Hypertension Social History Social History Alcohol intake: never Smoked in Last 30 Days: No Use of substances other than those prescribed or required for medical reasons: No Advance Directives: No Advance Directives Information Provided: Yes Meds Allergies Allergy/AdvReac Type Severity Reaction Status Date / Time No Known Allergies Allergy Verified 01/27/24 06:11 Active Medications: Current Medications Sodium Chloride (Ns) 1,983 mls @ 1,983 mls/hr IV .Q1H STA Stop: 01/27/24 09:13 Last Admin: 01/27/24 08:17 Dose: 1,983 mls/hr Physical Exam 2 Vital Signs: Vital Signs: Last Vital Signs Temp 98.7 F 01/27/24 08:05 Pulse 99 01/27/24 08:05 Resp 18 01/27/24 08:05 BP 102/63 01/27/24 08:05 Pulse Ox 93 01/27/24 08:07 O2 Del Method Nasal Cannula 01/27/24 08:07 O2 Flow Rate 2 01/27/24 08:07 BMI result Body Mass Index 30.5 Const: General: cooperative and no acute distress Nutritional Appearance: w ell nourished Orientation/consciousness: patient oriented x3 Limitations: no limitations HEENT: Head: Yes normocephalic and Yes atraumatic Ears: hearing grossly normal bilaterally Resp: Effort & Inspection: normal respiratory effort, no audible wheezes, no cough and no respiratory distress Cardio: Jugular venous distension: no JVD GI: Inspection: Yes normal to inspection Palpation (GI): Firmness to palpation present (GI), Tenderness to palpation present (GI) at McBurney's point, psoas sign positive, with rebound tenderness and Rovsing's sign positive and no hernias Percussion: Yes dullness to percussion Auscultation: bowels sounds not normal Rectal Exam - Male: Yes deferred Skin: Other: Warm, dry, no rash Neuro: General: patient oriented x3 Extrem: General: Yes no clubbing, cyanosis or edema Results Results Labs: Short CBC 01/27/24 Range/Units 06:34 WBC 28.3 H (4.8-10.8) X10*3/uL Hgb 16.1 (14.0-18.0) g/dl Hct 45.2 (42.0-52.0) % Plt Count 410 H (160-400) X10*3/uL BMP 01/27/24 06:34 Sodium 135 Potassium 3.6 Chloride 102 Carbon Dioxide 20 L BUN 15 Creatinine 1.30 Calcium 9.3 Liver Function 01/27/24 Range/Units 06:34 Total Bilirubin 1.8 H (0.0-1.0) mg/dL Direct Bilirubin 0.6 H (0.0-0.5) mg/dL AST 24 (5-37) U/L ALT 30 (0-40) U/L Alkaline Phosphatase 121 H (39-117) U/L Albumin 4.4 (3.5-5.0) g/dL Abdomen CT scan report/results: image reviewed CT scan - pelvis: image reviewed Additional studies: Assessment and Plan (1) Ruptured appendicitis: Status: Acute Plan 73-year-old male patient presenting with complaints of abdominal pain of 48 hour duration. Pain is mainly in the right lower quadrant with associated abdominal rigidity and peritoneal signs. CT findings confirmed ruptured appendicitis. I recommended a laparoscopic or possible open appendectomy. After discussion of the procedure, risks, and alternatives, he consents to the laparoscopic or possible open appendectomy. He has been added onto the operative schedule for today. Quality Stroke Does the patient have a stroke diagnosis?: No VTE Prior VTE?: No VTE Risk Level:: Surgical - moderate VTE Device Contraindication: N/A - Device Ordered VTE Drug Contraindication: Treatment Not Indicated Procedures Date of Service Date of Service: 01/27/24
[2024-01-27 09:12] LABS: Reflex Lactate? Lactic Acid Added
--- NOTE | 2024-01-27 09:14 | PC.NURSE ---
Report given to Kathy FARFAN in short stay.
--- NOTE | 2024-01-27 09:40 | PC.NURSE ---
Periop NAHEED Valladares made aware of need for repeat lactic. 150mL left in sepsis IVF bolus, patient taken to OR at this time.
[2024-01-27] MEDS: Lactated Ringers 1,000 ML 100 ML IVCONT (09:55)
[2024-01-27] MEDS: Lactated Ringers 1,000 ML 999 ML IV (09:57)
--- NOTE | 2024-01-27 10:17 | HO.ANESPROP2 ---
[facility] Active Problems Active Problems: All Active Problems Sepsis (Acute) Peripheral vascular disease (Acute) Hypertension (Acute) Ruptured appendicitis (Acute) Past Medical History Medical History Peripheral vascular disease Hypertension Family History Family history of problems with anesthesia: No Surgical History History of Problems with Anesthesia: Yes (nausea) Social History Social History Alcohol intake: never Patient Tobacco Use Status: Never used Tobacco Smoked in Last 30 Days: No Use of substances other than those prescribed or required for medical reasons: No Have you been hit, kicked, punched, or otherwise hurt by someone within the past year? If so, by whom?: No Are you DNR?: No Advance Directives: No Advance Directives Information Provided: Yes Recently lost weight without trying: No Nutrition Risks: No Nutritional Risk Meds Allergies Allergy/AdvReac Type Severity Reaction Status Date / Time No Known Allergies Allergy Verified 01/27/24 06:11 Active Medications: Current Medications Albuterol/Ipratropium (Albuterol/Iprat 2.5/0.5mg 3 Ml Ampul.Neb) 3 ml INHALE ONCE ONE Stop: 01/27/24 10:17 Lactated Ringer's (Lr) 1,000 mls @ 100 mls/hr IVCONT .Q10H [facility] [place] Last Admin: 01/27/24 09:55 Dose: 100 mls/hr Lactated Ringer's (Lr) 1,000 mls @ 999 mls/hr IV .Q1H1M [facility] Stop: 01/27/24 11:00 Last Admin: 01/27/24 09:57 Dose: 999 mls/hr Home Medications ?Medication ?Instructions ?Recorded ?Confirmed ?Last Taken ?Type alendronate 70 mg tablet 70 mg PO QWEEK 01/27/24 01/27/24 01/25/24 History atorvastatin 80 mg tablet 80 mg PO BEDTIME 01/27/24 01/27/24 01/25/24 History cilostazol 100 mg tablet 100 mg PO DAILY 01/27/24 01/27/24 01/25/24 History fluticasone propionate 50 1 spray intranasal DAILY 01/27/24 Unknown History mcg/actuation nasal spray,suspension sildenafil 100 mg tablet 100 mg PO DAILY PRN Erectile 01/27/24 Unknown History Dysfunction triamterene 37.5 1 tab PO DAILY 01/27/24 01/27/24 01/26/24 History mg-hydrochlorothiazide 25 mg tablet Exam Height,Weight and Vital Signs: Height 5 ft 7 in Weight 88.451 kg Last Vital Signs Temp 99.4 F 01/27/24 09:50 Pulse 82 01/27/24 10:14 Resp 18 01/27/24 10:14 BP 119/79 01/27/24 10:14 Pulse Ox 92 01/27/24 10:14 O2 Del Method Nasal Cannula 01/27/24 10:14 O2 Flow Rate 2 01/27/24 10:14 Pertinent Lab Results Pertinent Lab Results: iLaboratory Tests 01/27/24 01/27/24 06:34 07:08 WBC 28.3 H RBC 5.20 Hgb 16.1 Hct 45.2 MCV 86.9 MCH 31.0 MCHC 35.6 RDW 14.0 Plt Count 410 H MPV 9.7 Immature Gran % (Auto) Cancelled Neut % (Auto) Cancelled Lymph % (Auto) Cancelled [place] % (Auto) Cancelled Eos % (Auto) Cancelled Baso % (Auto) Cancelled Lymph # (Auto) Cancelled [place] # (Auto) Cancelled Eos # (Auto) Cancelled Baso # (Auto) Cancelled Abs Immat Gran (auto) Cancelled Absolute Neuts (auto) Cancelled Absolute Nucleated RBC 0.000 Nucleated RBC % (auto) 0.0 Neutrophils % (Manual) 89 H Band Neutrophils % 2 L Lymphocytes % (Manual) 4 L Monocytes % (Manual) 4 Metamyelocytes % 1 Abs Neuts (Manual) 25.8 H Lymphocytes # (Manual) 1.1 L Monocytes # (Manual) 1.1 Metamyelocytes # 0.3 Platelet Estimate NORMAL Plt Morphology Comment NORMAL RBC Morphology NOTED [place] Cells 1+ (0-2) Smear Tech's Comments MANUAL DIFF Sodium 135 Potassium 3.6 Chloride 102 Carbon Dioxide 20 L Anion Gap 17 BUN 15 Creatinine 1.30 Estim Creat Clear Calc 55.3 Estimated GFR 54 Random Glucose 151 H Lactic Acid 2.2 H* Calcium 9.3 Total Bilirubin 1.8 H Direct Bilirubin 0.6 H AST 24 ALT 30 Alkaline Phosphatase 121 H Total Protein 7.6 Albumin 4.4 Lipase 8 Airway Mallampati Class: III TM Dist: >3cm Neck ROM: Full Denture: Upper and Lower Assessment and Plan Assessment Anesthesia Assessment: Anesthesia Plan Discussed and Chart Reviewed Final Anesthetic Review Family History of Problems with Anesthesia: No History of Problems with Anesthesia: Yes (nausea) NPO: No ASA Class: III and Emergency Final Preanesthetic Review: No Changes in Pt Med Stat, Meds/Allgs Chart Reviewed, Consent Obtained/Reviewed, Anes Risks/Benef Reviewed and DNR Form (If Appl.) Patient Risk: Intermediate Procedure Risk: Intermediate Anesthetic Plan Anesthetic Plan: GA Disposition: Standard PACU
[2024-01-27] MEDS: Albuterol/Iprat 2.5/0.5MG 3 ML AMPUL.NEB INHALE (10:28)
--- NOTE | 2024-01-27 10:35 | P.CONAN_ITS ---
[facility] Active Problems Active Problems: All Active Problems Sepsis (Acute) Peripheral vascular disease (Acute) Hypertension (Acute) Ruptured appendicitis (Acute) Past Medical History Medical History Peripheral vascular disease Hypertension Functional capacity: independent ambulation Family History Family history of problems with anesthesia: No Surgical History History of Problems with Anesthesia: Yes (nausea) Social History Social History Alcohol intake: never Patient Tobacco Use Status: Never used Tobacco Smoked in Last 30 Days: No Use of substances other than those prescribed or required for medical reasons: No Have you been hit, kicked, punched, or otherwise hurt by someone within the past year? If so, by whom?: No Are you DNR?: No Advance Directives: No Advance Directives Information Provided: Yes Recently lost weight without trying: No Nutrition Risks: No Nutritional Risk Meds Allergies Allergy/AdvReac Type Severity Reaction Status Date / Time No Known Allergies Allergy Verified 01/27/24 06:11 Active Medications: Current Medications Fentanyl (Fentanyl Citrate/Pf 100 Mcg/2 Ml Vial) 50 mcg IVPUSH Q5M PRN PRN Reason: Pain, Moderate to Severe (Pain Scale 4-10) Stop: 01/27/24 16:19 Lactated Ringer's (Lr) 1,000 mls @ 100 mls/hr IVCONT .Q10H [facility] Last Admin: 01/27/24 09:55 Dose: 100 mls/hr Lactated Ringer's (Lr) 1,000 mls @ 999 mls/hr IV .Q1H1M [facility] Stop: 01/27/24 11:00 Last Admin: 01/27/24 09:57 Dose: 999 mls/hr Naloxone HCl (Naloxone Hcl 0.4 Mg/Ml Vial) 0.04 mg IVPUSH Q5M PRN PRN Reason: Excessive sedation or RR < 8 Ondansetron HCl (Ondansetron Hcl 4 Mg/2 Ml Vial) 4 mg IVPUSH ONCE PRN PRN Reason: Nausea and Vomiting Stop: 01/27/24 16:19 Home Medications ?Medication ?Instructions ?Recorded ?Confirmed ?Last Taken ?Type alendronate 70 mg tablet 70 mg PO QWEEK 01/27/24 01/27/24 01/25/24 History atorvastatin 80 mg tablet 80 mg PO BEDTIME 01/27/24 01/27/24 01/25/24 History cilostazol 100 mg tablet 100 mg PO DAILY 01/27/24 01/27/24 01/25/24 History fluticasone propionate 50 1 spray intranasal DAILY 01/27/24 Unknown History mcg/actuation nasal spray,suspension sildenafil 100 mg tablet 100 mg PO DAILY PRN Erectile 01/27/24 Unknown History Dysfunction triamterene 37.5 1 tab PO DAILY 01/27/24 01/27/24 01/26/24 History mg-hydrochlorothiazide 25 mg tablet Exam Height,Weight and Vital Signs: Height 5 ft 7 in Weight 88.451 kg Last Vital Signs Temp 99.4 F 01/27/24 09:50 Pulse 92 01/27/24 10:29 Resp 18 01/27/24 10:29 BP 104/79 01/27/24 10:29 Pulse Ox 93 01/27/24 10:29 O2 Del Method Nasal Cannula 01/27/24 10:29 O2 Flow Rate 2 01/27/24 10:29 Pertinent Lab Results Pertinent Lab Results: Laboratory Tests 01/27/24 01/27/24 06:34 07:08 WBC 28.3 H RBC 5.20 Hgb 16.1 Hct 45.2 MCV 86.9 MCH 31.0 MCHC 35.6 RDW 14.0 Plt Count 410 H MPV 9.7 Immature Gran % (Auto) Cancelled Neut % (Auto) Cancelled Lymph % (Auto) Cancelled [place] % (Auto) Cancelled Eos % (Auto) Cancelled Baso % (Auto) Cancelled Lymph # (Auto) Cancelled [place] # (Auto) Cancelled Eos # (Auto) Cancelled Baso # (Auto) Cancelled Abs Immat Gran (auto) Cancelled Absolute Neuts (auto) Cancelled Absolute Nucleated RBC 0.000 Nucleated RBC % (auto) 0.0 Neutrophils % (Manual) 89 H Band Neutrophils % 2 L Lymphocytes % (Manual) 4 L Monocytes % (Manual) 4 Metamyelocytes % 1 Abs Neuts (Manual) 25.8 H Lymphocytes # (Manual) 1.1 L Monocytes # (Manual) 1.1 Metamyelocytes # 0.3 Platelet Estimate NORMAL Plt Morphology Comment NORMAL RBC Morphology NOTED [place] Cells 1+ (0-2) Smear Tech's Comments MANUAL DIFF Sodium 135 Potassium 3.6 Chloride 102 Carbon Dioxide 20 L Anion Gap 17 BUN 15 Creatinine 1.30 Estim Creat Clear Calc 55.3 Estimated GFR 54 Random Glucose 151 H Lactic Acid 2.2 H* Calcium 9.3 Total Bilirubin 1.8 H Direct Bilirubin 0.6 H AST 24 ALT 30 Alkaline Phosphatase 121 H Total Protein 7.6 Albumin 4.4 Lipase 8 Airway Mallampati Class: III TM Dist: >3cm Denture: Upper and Lower Heart: RRR Lungs: Right side diminished BS. No more wheezing after DuoNeb treatment Assessment and Plan Assessment Anesthesia Assessment: Anesthesia Plan Discussed and Chart Reviewed Final Anesthetic Review Family History of Problems with Anesthesia: No History of Problems with Anesthesia: Yes (nausea) NPO: Yes ASA Class: IV and Emergency Final Preanesthetic Review: Meds/Allgs Chart Reviewed, Consent Obtained/Reviewed and Anes Risks/Benef Reviewed Patient Risk: High Procedure Risk: Intermediate Anesthetic Plan Anesthetic Plan: GA Disposition: Standard PACU
--- NOTE | 2024-01-27 11:59 | P.OP_ITS ---
Operative Note Operative Note Date of Service: 01/27/24 Narrative: Preoperative diagnosis: Acute appendicitis, perforated Postoperative diagnosis: Same Procedure: Laparoscopic appendectomy Surgeon: Gentry Pham MD Architectural Practice Manager: None Anesthesia: General endotracheal Indications for procedure: 73-year-old male patient presenting with complaints of abdominal pain on of 48 hour duration found on workup to have perforated appendicitis Operative findings: Perforated appendicitis Specimen: Appendix Estimated blood loss: 10 mL Complications: None Procedure details: Patient was brought to the OR and placed in a supine position. After administering general anesthesia the patient's abdomen was prepped with ChloraPrep and draped in a sterile fashion. A surgical time-out was called and consent confirmed. Patient received preoperative antibiotics and Venodyne boots were in place. Local anesthesia consisting of 0.75% Sensorcaine with epinephrine was infiltrated in periumbilical region. A 5 mm incision was made below the umbilicus and carried down through subcutaneous tissue. A Veress needle was then inserted while elevating abdominal cavity with towel clips. After a positive drop test the abdomen was insufflated to a pressure of 15 mm of mercury. The Veress needle was removed and a 5 mm trocar inserted. The camera was then inserted in the abdomen explored. A 2nd 5 mm trocars placed in the lower midline. A 12 mm trocar was then placed in the left lower quadrant. The patient was then placed in a Trendelenburg position and rotated to the left. The appendix was identified in the right lower quadrant and brought up using blunt dissecting clamps. The mesentery of the appendix was then divided using the LigaSure. The appendiceal artery was cauterized and divided using the LigaSure. Dissection was continued down to the base of the cecum. An Endo-MAMIE stapler with a purple reload was then used to divide the appendix at the base with the cecum. The appendix was then placed in Endo-Catch bag and brought out through the left lower quadrant incision. The abdomen was then thoroughly irrigated with a 1000 mL saline solution and suctioned dry. Wounds were checked for hemostasis. CO2 was then evacuated from the abdominal cavity and all trocars removed. Fascia was closed in the left lower quadrant incision using a [id number] 0 Polysorb suture. Skin was closed at all incisions using a subcuticular 4-0 Polysorb suture. Steri-Strips 2 x 2 gauze and Tegaderm were then applied. The patient tolerated the procedure well. Sponge, instrument, needle counts reported as correct. The patient was transferred to PACU in stable condition.
[2024-01-27 12:21] LABS: ~Lactic Acid-LAB USE ONLY 2.5 mmol/L (0.5-2.0)
[2024-01-27 12:29] LABS: Reflex Lactate? 2 Y
--- NOTE | 2024-01-27 12:57 | HO.PM.IMCN ---
History of Present Illness Data of Consult Service Date: 01/27/24 Requesting physician: Gentry Pham Primary Care Provider: Anupam Shaw MD HPI Reason for consult: medical consult Pt is a 73 yo male with a pmhx significant for HTN, CAD, mild stage 1 COPD and PVD, who presented to the ED this morning with abd pain and nausea, found to have sepsis secondary to a perforated appendix. He is now s/p laparoscopic appendectomy. Has new O2 requirement after surgery. Currently on high flow O2. He denies any upper respiratory sx prior to surgery. he does have mild stage 1 COPD, uses albuterol PRN. having abd pain with deep inspiration. Review of Systems Constitutional: Constitutional: Denies chills and Denies fever(s) Eyes: Eyes: Denies change in vision ENT: Denies nasal congestion, Denies nasal discharge and Denies sore throat Cardiovascular: Cardiovascular: Denies chest pain, Denies rapid heart rate and Denies lightheadedness Respiratory: Respiratory: Denies chest congestion, Denies cough and Denies wheezing Gastrointestinal: Gastrointestinal: Denies constipation, Denies diarrhea, Denies nausea and Denies vomiting Genitourinary: Genitourinary: Denies dysuria Neurologic: Denies confusion Psychiatric: Psychiatric: Denies confusion Allergic/Immunologic: Allergic/Immunologic: Denies wheezing [facility] Medical History Peripheral vascular disease Hypertension Functional capacity: independent ambulation Social History Household Members: Spouse Housing: House Do you presently have visiting nurse or other home services: No Alcohol intake: never Patient Tobacco Use Status: Never used Tobacco Smoked in Last 30 Days: No Use of substances other than those prescribed or required for medical reasons: No Currently Displaying Signs/Symptoms of Drug Intoxication Withdrawal: No Have you been hit, kicked, punched, or otherwise hurt by someone within the past year? If so, by whom?: No Do you feel safe in your current relationship?: Yes Is there a partner from a previous relationship who is making you feel unsafe now?: No Are you made to feel afraid or neglected: No Spiritual Healthcare Practices: n/a Are you DNR?: No Advance Directives: No Advance Directives Information Provided: Yes Do you have a plan to hurt others: No Plan Recently lost weight without trying: No Nutrition Risks: No Nutritional Risk Poor oral hygiene: No service: No Meds Allergies Allergy/AdvReac Type Severity Reaction Status Date / Time No Known Allergies Allergy Verified 01/27/24 06:11 Active Medications: Current Medications Fentanyl (Fentanyl Citrate/Pf 100 Mcg/2 Ml Vial) 50 mcg IVPUSH Q5M PRN PRN Reason: Pain, Moderate to Severe (Pain Scale 4-10) Stop: 01/27/24 16:19 Lactated Ringer's (Lr) 1,000 mls @ 100 mls/hr IVCONT .Q10H SCOTT Last Admin: 01/27/24 09:55 Dose: 100 mls/hr Naloxone HCl (Naloxone Hcl 0.4 Mg/Ml Vial) 0.04 mg IVPUSH Q5M PRN PRN Reason: Excessive sedation or RR < 8 Ondansetron HCl (Ondansetron Hcl 4 Mg/2 Ml Vial) 4 mg IVPUSH ONCE PRN PRN Reason: Nausea and Vomiting Stop: 01/27/24 16:19 Home Medications ?Medication ?Instructions ?Recorded ?Confirmed ?Last Taken ?Type alendronate 70 mg tablet 70 mg PO QWEEK 01/27/24 01/27/24 01/25/24 History atorvastatin 80 mg tablet 80 mg PO BEDTIME 01/27/24 01/27/24 01/25/24 History cilostazol 100 mg tablet 100 mg PO DAILY 01/27/24 01/27/24 01/25/24 History fluticasone propionate 50 1 spray intranasal DAILY 01/27/24 01/27/24 Unknown History mcg/actuation nasal spray,suspension sildenafil 100 mg tablet 100 mg PO DAILY PRN Erectile 01/27/24 01/27/24 Unknown History Dysfunction triamterene 37.5 1 tab PO DAILY 01/27/24 01/27/24 01/26/24 History mg-hydrochlorothiazide 25 mg tablet Physical Exam Vital Signs and Narrative: Vital Signs: Last Vital Signs Temp 97.1 F 01/27/24 12:16 Pulse 89 01/27/24 12:46 Resp 18 01/27/24 12:46 BP 99/63 01/27/24 12:46 Pulse Ox 91 L 01/27/24 12:46 O2 Del Method Oxymask 01/27/24 12:46 O2 Flow Rate 12 01/27/24 12:46 BMI result Body Mass Index 30.5 General: AOx3, no acute distress, easily arousable, sleeping comfortably Resp: crackles bilateral lung bases, difficulty with deep inspiration due to abd pain CVS: S1, S2, RRR Skin: Warm, dry Extremities: No edema Psych: Appropriate affect Const: General: No confusion Orientation/consciousness: No confusion Neuro: General: No confusion Results Labs 01/28/24 06:12 01/28/24 06:13 Labs: Laboratory Results - last 24 hr 01/27/24 01/27/24 01/27/24 06:34 07:08 10:25 MCV 86.9 MCH 31.0 MCHC 35.6 RDW 14.0 Plt Count 410 H MPV 9.7 Immature Gran % (Auto) Cancelled Neut % (Auto) Cancelled Lymph % (Auto) Cancelled [place] % (Auto) Cancelled Eos % (Auto) Cancelled Baso % (Auto) Cancelled Lymph # (Auto) Cancelled [place] # (Auto) Cancelled Eos # (Auto) Cancelled Baso # (Auto) Cancelled Abs Immat Gran (auto) Cancelled Absolute Neuts (auto) Cancelled Absolute Nucleated RBC 0.000 Nucleated RBC % (auto) 0.0 Neutrophils % (Manual) 89 H Band Neutrophils % 2 L Lymphocytes % (Manual) 4 L Monocytes % (Manual) 4 Metamyelocytes % 1 Abs Neuts (Manual) 25.8 H Lymphocytes # (Manual) 1.1 L Monocytes # (Manual) 1.1 Metamyelocytes # 0.3 Platelet Estimate NORMAL Plt Morphology Comment NORMAL RBC Morphology NOTED [place] Cells 1+ (0-2) Smear Tech's Comments MANUAL DIFF Anion Gap 17 Estim Creat Clear Calc 55.3 Estimated GFR 54 Random Glucose 151 H Lactic Acid 2.2 H* Lactic Acid F/U @ 2Hr 2.5 H* Calcium 9.3 Total Bilirubin 1.8 H Direct Bilirubin 0.6 H AST 24 ALT 30 Alkaline Phosphatase 121 H Total Protein 7.6 Albumin 4.4 Lipase 8 Blood Type A Negative Antibody Screen NEGATIVE Imaging Radiologist's Impressions: Impressions Abdomen/Pelvis CT 01/27/24 07:23 IMPRESSION: Acute, likely perforated appendicitis with periappendiceal phlegmon and three-dimensional ileus. Discussed with Sheron Merino at 7:50 AM. Cholelithiasis. Probable hemangioma right hepatic lobe and septated cystic lesion dome right hepatic lobe. Mild interstitial edema. Coronary artery disease and atherosclerosis disease. 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 Renal cysts, bilaterally. Diverticular disease, left hemicolon. Fleischner guidelines were followed. Electronically signed by: Klever Em MD 01/27/2024 08:04 AM [facility] Assessment and Plan (1) S/P laparoscopic appendectomy: Status: Acute (2) Respiratory failure with hypoxia: Status: Acute Plan Pt is a 73 yo male with a pmhx significant for HTN, CAD, mild stage 1 COPD and PVD, who presented to the ED this morning with abd pain and nausea, found to have sepsis secondary to a perforated appendix, now s/p lap appy and having post op complication of acute respiratory failure with hypoxia requiring high flow O2. s/p lap appy - plan per surgery acute respiratory failure - crackles bilateral lung bases - CXR ordered to assess for aspiration or PTX - continue zosyn for anaerobe coverage - VBG ordered stage 1 COPD - no acute exacerbation - no wheezing on exam HTN - continue triamterene-hctz, PAD/CAD - continue cilostazol, statin Thank you for allowing me to participate in the pt's care. Will continue to follow. Please contact the medical team if any questions or concerns.
--- NOTE | 2024-01-27 13:11 | PC.RT ---
RT called to bedside, pt noted spo2 90% on 10 lpm, post op lap. Sleepy but easily arousable. HFNC was started without issue.
--- NOTE | 2024-01-27 15:41 | PHA.MEDREC ---
Pharmacy Consult ? Medication Reconciliation Pharmacy has completed the medication reconciliation.
[2024-01-27 16:02] LABS: VBG Base Excess -5.4 mmol/L; VBG HCO3 17 mmol/L (22-26); VBG pCO2 26 mmHg; VBG pH 7.42 (7.32-7.43); VBG pO2 67 mmHg
[2024-01-27 16:03] LABS: Venous Blood Gas Refer to POC result
[2024-01-27 16:15] LABS: ~Lactic Acid-LAB USE ONLY 1.6 mmol/L (0.5-2.0)
[2024-01-27] MEDS: 0.9 % Sodium Chloride Flush 3 ML SYRINGE IVFLUSH (16:59)
[2024-01-27] MEDS: Dextrose 5 % and Lactated Ring 1,000 ML 125 ML IVCONT (16:59)
[2024-01-27] MEDS: Piperacillin Sodium/Tazobactam 3.375 GM in 0.9 % Sodium Chloride 50 ML IV ×2 (17:41→21:04)
[2024-01-27] MEDS: HYDROmorphone HCl 0.5 MG/0.5 ML SYRINGE IVPUSH (20:40)
[2024-01-27] MEDS: Atorvastatin Calcium 80 MG TABLET PO (20:40)
[2024-01-28] MEDS: Dextrose 5 % and Lactated Ring 1,000 ML 125 ML IVCONT (00:39)
[2024-01-28] MEDS: Piperacillin Sodium/Tazobactam 3.375 GM in 0.9 % Sodium Chloride 50 ML IV ×4 (03:06→22:55)
[2024-01-28] MEDS: Acetaminophen 1,000 MG/100 ML PIGGYBACK 400 MG IV ×2 (03:07→08:59)
[2024-01-28] MEDS: HYDROmorphone HCl 0.5 MG/0.5 ML SYRINGE IVPUSH ×5 (03:13→22:58)
[2024-01-28 03:57] VITALS: BP 119/65; PULSE 81; RESP 19; TEMP 36.6; O2SAT 92
[2024-01-28 06:56] LABS: Basophils Absolute Auto 0.1 X10*3/uL (0.0-0.2); Basophils Percent Auto 0.3 % (0-2); Eosinophils Absolute Auto 0.1 X10*3/uL (0.0-0.4); Eosinophils Percent Auto 0.3 % (0-4); Hematocrit 34.1 % (42.0-52.0); Hemoglobin 11.8 g/dl (14.0-18.0); Imm Gran Abs Auto 0.25 X10*3/uL (0.00-0.03); Lymphocytes Absolute Auto 1.6 X10*3/uL (1.2-4.9); MANUAL DIFF FLAG SCAN; Mean Corpuscular HGB Conc 34.6 g/dl (31.0-36.0); Mean Corpuscular Hemoglobin 31.1 pg (27.0-33.0); Mean Corpuscular Volume 89.7 fL (80.0-98.0); Mean Platelet Volume 10.6 fL (9.4-12.4); Monocytes Absolute Auto 0.8 X10*3/uL (0.1-1.2); Monocytes Percent Auto 3.2 % (2-11); Neutrophils Absolute Auto 23.5 x10*3/uL (2.0-8.3); Neutrophils Percent Auto 89.2 % (45-73); Platelet Count 301 X10*3/uL (160-400); Red Cell Distribution Width 14.6 % (11.0-16.0); SCAN SMEAR FLAG 1; White Blood Count 26.3 X10*3/uL (4.8-10.8)
[2024-01-28 06:57] LABS: Anion Gap 10 (12-20); Blood Urea Nitrogen 13 mg/dL (9-16); Calcium 8.1 mg/dL (8.4-10.2); Carbon Dioxide 21 mmol/L (22-29); Chloride 108 mmol/L (96-108); Creatinine Clr Calc Pharmacy 69.2; Estimated Glomerular Filt Rate > 60; Glucose Random 129 mg/dL (60-115); Potassium 3.2 mmol/L (3.3-5.1); Sodium 136 mmol/L (135-145)
[2024-01-28 07:42] LABS: SLIDE REVIEW VERIFIED
[2024-01-28 07:56] VITALS: BP 120/79; PULSE 81; RESP 18; TEMP 36.5; O2SAT 94
[2024-01-28] MEDS: cilostazoL 100 MG TABLET PO (08:59)
[2024-01-28] MEDS: Triamterene/HCTZ 37.5/25 TABLET 1 TAB PO (08:59)
--- NOTE | 2024-01-28 09:17 | MHC.CM.PN ---
IMM 01/28/24, PT W/APPENDECITIS S/P LAP APPENDECTOMY, CM MET W/PT AT BEDSIDE WHO IS A&O, PT REPORTS HE LIVES W/, IS FULLY INDEP W/ALL CARE, DENIES USE OF DME/SERVICES, GOAL FOR DC IS HOME NO SERVICES W/OUTPT FOLLOW UP IN SURGEONS OFFICE. PCP VERIFIED, PT REPORTS HIS WANDA IS HIS HCP, COPY REQUESTED.
--- NOTE | 2024-01-28 09:37 | HO.PM.IMPN ---
Subjective Subjective Date of Service: 01/28/24 <Mony Murillo PA-C - Last Filed: 01/28/24 10:00> 01/28/24 <Desmond Sharma MD - Last Filed: 01/28/24 10:36> Interval History: pt consulted yesterday after lap appy due to perforated appendix with post op hypoxia. was on high flow O2, now tolerating NC @7L no chest pain, SOB, dyspnea, nausea or vomiting. having some abd pain. feeling much better than yesterday. <Mony Murillo PA-C - Last Filed: 01/28/24 10:00> Constitutional Constitutional: Denies headache(s) <Mony Murillo PA-C - Last Filed: 01/28/24 10:00> ENT Ears, Nose, Mouth, and Throat: Denies headache(s) <Mony Murillo PA-C - Last Filed: 01/28/24 10:00> Cardiovascular Cardiovascular: Denies chest pain, Denies rapid heart rate, Denies leg edema and Denies dyspnea <Mony Murillo PA-C - Last Filed: 01/28/24 10:00> Respiratory Respiratory: Denies chest congestion, Reports cough (mild non-productive) and Denies dyspnea <Mony Murillo PA-C - Last Filed: 01/28/24 10:00> Gastrointestinal Gastrointestinal: Reports as per HPI, Denies nausea and Denies vomiting <Mony Murillo PA-C - Last Filed: 01/28/24 10:00> Genitourinary Genitourinary: Denies dysuria <Mony Murillo PA-C - Last Filed: 01/28/24 10:00> Musculoskeletal Musculoskeletal: Denies myalgias <Mony Murillo PA-C - Last Filed: 01/28/24 10:00> Integumentary/Breasts Skin/Breast: Denies rash <Mony Murillo PA-C - Last Filed: 01/28/24 10:00> Neurologic Neurologic: Denies confusion and Denies headache(s) <Mony Murillo PA-C - Last Filed: 01/28/24 10:00> Psychiatric Psychiatric: Denies confusion <LINDY Toribio Last Filed: 01/28/24 10:00> Physical Exam Vital Signs: Vital Signs: Last Vital Signs Temp 97.7 F 01/28/24 07:56 Pulse 81 01/28/24 07:56 Resp 18 01/28/24 07:56 BP 120/79 01/28/24 07:56 Pulse Ox 94 01/28/24 07:56 O2 Del Method Nasal Cannula 01/28/24 07:56 O2 Flow Rate 7 01/28/24 07:56 FiO2 50 01/27/24 19:52 BMI result Body Mass Index 33.1 <Mony Murillo PA-C - Last Filed: 01/28/24 10:00> General: AOx3, no acute distress, standing bedside Resp: CTA bilaterally, diminished, no crackles or wheezing CVS: S1, S2, RRR Skin: Warm, dry Extremities: No edema Psych: Appropriate affect <Mony Murillo PA-C - Last Filed: 01/28/24 10:00> Const: General: No confusion <Mony Murillo PA-C - Last Filed: 01/28/24 10:00> Orientation/consciousness: No confusion <Mony Murillo PA-C Last Filed: 01/28/24 10:00> Neuro: General: No confusion <Mony Murillo PA-C Last Filed: 01/28/24 10:00> Objective Data Active Medications Atorvastatin Calcium (Atorvastatin Calcium 80 Mg Tablet) 80 mg PO BEDTIME [facility] Last Admin: 01/27/24 20:40 Dose: 80 mg Documented By: BRAYDEN Calcium Carbonate (Calcium Carbonate 750 Mg Tab.Chew) 750 mg PO Q4H PRN PRN Reason: Heartburn Cilostazol (Cilostazol 100 Mg Tablet) 100 mg PO DAILY [facility] Last Admin: 01/28/24 08:59 Dose: 100 mg Documented By: DEXTER Enoxaparin Sodium (Enoxaparin Sodium 40 Mg/0.4 Ml Syringe) 40 mg SUBCUT Q24H [facility] Hydromorphone HCl (Hydromorphone Hcl 0.5 Mg/0.5 Ml Syringe) 0.5 mg IVPUSH Q3H PRN; Protocol PRN Reason: Pain, Severe (Pain Scale 7-10) Last Admin: 01/28/24 09:05 Dose: 0.5 mg Documented By: DEXTER Acetaminophen (Ofirmev) 1,000 mg in 100 mls @ 400 mls/hr IV Q6H [facility] Stop: 01/28/24 09:44 Last Infusion: 01/28/24 09:27 Dose: Infused Documented By: DEXTER Piperacillin Sod/Tazobactam (Sod 3.375 gm/ Sodium Chloride) 50 mls @ 100 mls/hr IV Q6H [facility] Last Admin: 01/28/24 08:59 Dose: 100 mls/hr Documented By: DEXTER Magnesium Hydroxide (Milk Of Magnesia 30 Ml Oral.Susp) 30 ml PO DAILY PRN PRN Reason: Constipation Melatonin (Melatonin 3 Mg Tablet) 6 mg PO BEDTIME PRN PRN Reason: Insomnia Ondansetron HCl (Ondansetron Hcl 4 Mg/2 Ml Vial) 4 mg IVPUSH QID PRN PRN Reason: Nausea Oxycodone HCl (Oxycodone Hcl Immed Release 5 Mg Tablet) 5 mg PO Q6H PRN PRN Reason: Pain, Moderate(Pain Scale 4-6) Sodium Chloride (0.9 % Sodium Chloride Flush 3 Ml Syringe) 3 ml IVFLUSH QSHIFT [facility] Last Admin: 01/28/24 07:23 Dose: Not Given Documented By: DEXTER Non-Admin Reason: IV Running Triamterene/Hydrochlorothiazide (Triamterene/Hctz 37.5/25 Tablet) 1 tab PO DAILY [facility]; Protocol Last Admin: 01/28/24 08:59 Dose: 1 tab Documented By: DEXTER <Mony Murillo PA-C - Last Filed: 01/28/24 10:00> Labs CBC & Chem 7: 01/28/24 06:12 01/28/24 06:13 <Mony Murillo PA-C - Last Filed: 01/28/24 10:00> Labs: Laboratory Results - last 24 hr 01/27/24 01/27/24 01/27/24 10:25 15:48 15:53 MCV MCH MCHC RDW Plt Count MPV Immature Gran % (Auto) Neut % (Auto) Lymph % (Auto) [place] % (Auto) Eos % (Auto) Baso % (Auto) Lymph # (Auto) [place] # (Auto) Eos # (Auto) Baso # (Auto) Abs Immat Gran (auto) Absolute Neuts (auto) Absolute Nucleated RBC Nucleated RBC % (auto) Smear Tech's Comments Hold Purple Top SEE NOTE VBG pH VBG pCO2 VBG pO2 VBG HCO3 VBG O2 Saturation VBG Base Excess Anion Gap Estim Creat Clear Calc Estimated GFR Random Glucose Lactic Acid F/U @ 2Hr 2.5 H* Lactic Acid F/U @ 4Hr 1.6 Calcium Hold Yellow Top See Note Blood Type A Negative Antibody Screen NEGATIVE 01/27/24 01/28/24 01/28/24 15:57 06:12 06:13 MCV 89.7 MCH 31.1 MCHC 34.6 RDW 14.6 Plt Count 301 D MPV 10.6 Immature Gran % (Auto) 1.0 H Neut % (Auto) 89.2 H Lymph % (Auto) 6.0 L [place] % (Auto) 3.2 Eos % (Auto) 0.3 Baso % (Auto) 0.3 Lymph # (Auto) 1.6 [place] # (Auto) 0.8 Eos # (Auto) 0.1 Baso # (Auto) 0.1 Abs Immat Gran (auto) 0.25 H Absolute Neuts (auto) 23.5 H Absolute Nucleated RBC 0.000 Nucleated RBC % (auto) 0.0 Smear Tech's Comments VERIFIED Hold Purple Top VBG pH 7.42 VBG pCO2 26 VBG pO2 67 VBG HCO3 17 L VBG O2 Saturation 92.0 VBG Base Excess -5.4 Anion Gap 10 L Estim Creat Clear Calc 69.2 Estimated GFR > 60 Random Glucose 129 H Lactic Acid F/U @ 2Hr Lactic Acid F/U @ 4Hr Calcium 8.1 L D Hold Yellow Top Blood Type Antibody Screen <Mony Murillo PA-C - Last Filed: 01/28/24 10:00> Microbiology Microbiology Results: Microbiology 01/27/24 07:08 Blood Culture - Preliminary Blood - Venous No growth after 24 hours. 01/27/24 07:08 Blood Culture - Preliminary Blood - Venous No growth after 24 hours. <Mony Murillo PA-C - Last Filed: 01/28/24 10:00> Assessment and Plan (1) S/P laparoscopic appendectomy: Status: Acute <Mony Murillo PA-C - Last Filed: 01/28/24 10:00> (2) Respiratory failure with hypoxia: Status: Acute <Mony Murillo PA-C - Last Filed: 01/28/24 10:00> Assessment and Plan: Pt is a 73 yo male with a pmhx significant for HTN, CAD, mild stage 1 COPD and PVD, who presented to the ED this morning with abd pain and nausea, found to have sepsis secondary to a perforated appendix, now s/p lap appy and having post op acute respiratory failure with hypoxia requiring high flow O2. s/p lap appy - plan per surgery acute respiratory failure - improving - was on high flow yesterday, now 7L NC - CXR - hypoinflation of the lungs with mild bibasilar atelectasis - VBG ok - tele due to ?frequent PVCs yesterday post op, HR has been normal stage 1 COPD - no acute exacerbation - no wheezing on exam HTN - continue triamterene-hctz, PAD/CAD - continue cilostazol, statin Thank you for allowing me to participate in the pt's care. Will continue to follow. Please contact the medical team if any questions or concerns. <Mony Murillo PA-C - Last Filed: 01/28/24 10:00> Quality Stroke Does the patient have a stroke diagnosis?: No <Mony Murillo PA-C - Last Filed: 01/28/24 10:00> VTE Prior VTE?: No <Mony Murillo PA-C - Last Filed: 01/28/24 10:00> VTE Risk Level:: Surgical - moderate <Mony Murillo PA-C - Last Filed: 01/28/24 10:00> VTE Device Contraindication: N/A - Device Ordered <Mony Murillo PA-C - Last Filed: 01/28/24 10:00> VTE Drug Contraindication: N/A - Med Ordered <Mony Murillo PA-C - Last Filed: 01/28/24 10:00>
--- NOTE | 2024-01-28 10:44 | P.PNGS_ITS ---
Subjective Subjective Date of Service: 01/28/24 Interval history: Sore at left lateral abd port site. Tolerating solid diet. Has not been OOB. Denies shortness of breath. No incentive spirometer is at bedside. Physical Exam 2 Vital Signs: Vital Signs: Last Vital Signs Temp 97.7 F 01/28/24 07:56 Pulse 81 01/28/24 07:56 Resp 18 01/28/24 07:56 BP 120/79 01/28/24 07:56 Pulse Ox 94 01/28/24 07:56 O2 Del Method Nasal Cannula 01/28/24 07:56 O2 Flow Rate 7 01/28/24 07:56 FiO2 50 01/27/24 19:52 BMI result Body Mass Index 33.1 Const: General: comfortable, no acute distress and alert O rientation/consciousness: patient oriented x3 Resp: Effort & Inspection: normal respiratory effort, able to speak in complete sentences, no respiratory distress and no use of accessory muscles GI: Other: dressings intact Inspection: Yes distended Palpation (GI): Soft to palpation, Tenderness to palpation present (GI) (mild incisional tenderness) and no guarding Skin: General skin exam: no rashes or lesions noted Neuro: General: patient oriented x3 and moves all extremities Objective Data Active Medications Atorvastatin Calcium (Atorvastatin Calcium 80 Mg Tablet) 80 mg PO BEDTIME [facility] Last Admin: 01/27/24 20:40 Dose: 80 mg Documented By: BRAYDEN Calcium Carbonate (Calcium Carbonate 750 Mg Tab.Chew) 750 mg PO Q4H PRN PRN Reason: Heartburn Cilostazol (Cilostazol 100 Mg Tablet) 100 mg PO DAILY [facility] Last Admin: 01/28/24 08:59 Dose: 100 mg Documented By: DEXTER Enoxaparin Sodium (Enoxaparin Sodium 40 Mg/0.4 Ml Syringe) 40 mg SUBCUT Q24H [facility] Hydromorphone HCl (Hydromorphone Hcl 0.5 Mg/0.5 Ml Syringe) 0.5 mg IVPUSH Q3H PRN; Protocol PRN Reason: Pain, Severe (Pain Scale 7-10) Last Admin: 01/28/24 09:05 Dose: 0.5 mg Documented By: DEXTER Piperacillin Sod/Tazobactam (Sod 3.375 gm/ Sodium Chloride) 50 mls @ 100 mls/hr IV Q6H [facility] Last Infusion: 01/28/24 09:38 Dose: Infused Documented By: DEXTER Magnesium Hydroxide (Milk Of Magnesia 30 Ml Oral.Susp) 30 ml PO DAILY PRN PRN Reason: Constipation Melatonin (Melatonin 3 Mg Tablet) 6 mg PO BEDTIME PRN PRN Reason: Insomnia Ondansetron HCl (Ondansetron Hcl 4 Mg/2 Ml Vial) 4 mg IVPUSH QID PRN PRN Reason: Nausea Oxycodone HCl (Oxycodone Hcl Immed Release 5 Mg Tablet) 5 mg PO Q6H PRN PRN Reason: Pain, Moderate(Pain Scale 4-6) Sodium Chloride (0.9 % Sodium Chloride Flush 3 Ml Syringe) 3 ml IVFLUSH QSHIFT [facility] Last Admin: 01/28/24 07:23 Dose: Not Given Documented By: DEXTER Non-Admin Reason: IV Running Triamterene/Hydrochlorothiazide (Triamterene/Hctz 37.5/25 Tablet) 1 tab PO DAILY [facility]; Protocol Last Admin: 01/28/24 08:59 Dose: 1 tab Documented By: DEXTER Labs 01/28/24 06:12 01/28/24 06:13 Labs: Laboratory Results - last 24 hr 01/27/24 01/27/24 01/27/24 10:25 15:48 15:53 MCV MCH MCHC RDW Plt Count MPV Immature Gran % (Auto) Neut % (Auto) Lymph % (Auto) [place] % (Auto) Eos % (Auto) Baso % (Auto) Lymph # (Auto) [place] # (Auto) Eos # (Auto) Baso # (Auto) Abs Immat Gran (auto) Absolute Neuts (auto) Absolute Nucleated RBC Nucleated RBC % (auto) Smear Tech's Comments Hold Purple Top SEE NOTE VBG pH VBG pCO2 VBG pO2 VBG HCO3 VBG O2 Saturation VBG Base Excess Anion Gap Estim Creat Clear Calc Estimated GFR Random Glucose Lactic Acid F/U @ 2Hr 2.5 H* Lactic Acid F/U @ 4Hr 1.6 Calcium Hold Yellow Top See Note Blood Type A Negative Antibody Screen NEGATIVE 01/27/24 01/28/24 01/28/24 15:57 06:12 06:13 MCV 89.7 MCH 31.1 MCHC 34.6 RDW 14.6 Plt Count 301 D MPV 10.6 Immature Gran % (Auto) 1.0 H Neut % (Auto) 89.2 H Lymph % (Auto) 6.0 L [place] % (Auto) 3.2 Eos % (Auto) 0.3 Baso % (Auto) 0.3 Lymph # (Auto) 1.6 [place] # (Auto) 0.8 Eos # (Auto) 0.1 Baso # (Auto) 0.1 Abs Immat Gran (auto) 0.25 H Absolute Neuts (auto) 23.5 H Absolute Nucleated RBC 0.000 Nucleated RBC % (auto) 0.0 Smear Tech's Comments VERIFIED Hold Purple Top VBG pH 7.42 VBG pCO2 26 VBG pO2 67 VBG HCO3 17 L VBG O2 Saturation 92.0 VBG Base Excess -5.4 Anion Gap 10 L Estim Creat Clear Calc 69.2 Estimated GFR > 60 Random Glucose 129 H Lactic Acid F/U @ 2Hr Lactic Acid F/U @ 4Hr Calcium 8.1 L D Hold Yellow Top Blood Type Antibody Screen Microbiology Microbiology Results: Microbiology 01/27/24 07:08 Blood Culture - Preliminary Blood - Venous No growth after 24 hours. 01/27/24 07:08 Blood Culture - Preliminary Blood - Venous No growth after 24 hours. Procedures Date of Service Date of Service: 01/28/24 Progress Note: A&P Assessment and plan (1) S/P laparoscopic appendectomy: Status: Acute (2) Respiratory failure with hypoxia: Status: Acute Plan POD #1 s/p lap appy for perforated appendicitis. Overall doing fairly well post op. Remains on supplemental O2. VSS. Abd benign with appropriate incisional tenderness. WBC slightly improved. Cont IV abx, repeat CBC in AM. Pain control and diet as tolerated. Bowel regimen. He was educated on incentive spirometer use which I personally brought to the bedside. Rec 10x/hr. OOB/ambulation and increasing activity. Wean O2 as tolerated. Time Spent With Patient Time: Total time managing care of this patient today ____ minutes. Quality Stroke Does the patient have a stroke diagnosis?: No VTE Prior VTE?: No VTE Risk Level:: Surgical - moderate VTE Device Contraindication: N/A - Device Ordered VTE Drug Contraindication: N/A - Med Ordered
--- NOTE | 2024-01-28 11:38 | HO.POSTANES ---
Post Anesthesia Evaluation Post Anesthesia Evaluation Date of Service: 01/27/24 Vital Signs: Vital Signs Temp Pulse Resp BP Pulse Ox O2 Del Method O2 Flow Rate 01/28/24 07:56 97.7 F 81 18 120/79 94 Nasal Cannula 7 01/28/24 03:57 97.8 F 81 19 119/65 92 Nasal Cannula 7 01/27/24 23:39 97.1 F 76 24 H 106/58 L 94 Nasal Cannula Anesthesia: General Mental Status: Awake Pain Control: Satisfactory Nausea/Vomiting: None Hydration: Adequate Anesthesia-Related Issues: No Anes. Related Issues
[2024-01-28 11:42] VITALS: BP 133/80; PULSE 83; RESP 20; TEMP 37; O2SAT 92
[2024-01-28] MEDS: Enoxaparin Sodium 40 MG/0.4 ML SYRINGE SUBCUT (13:30)
[2024-01-28] MEDS: Docusate Sodium 100 MG CAPSULE PO ×2 (13:30→22:55)
[2024-01-28 15:58] VITALS: BP 140/89; PULSE 115; RESP 20; TEMP 36.5; O2SAT 91
[2024-01-28] MEDS: 0.9 % Sodium Chloride Flush 3 ML SYRINGE IVFLUSH ×2 (17:19→22:58)
[2024-01-28 20:00] VITALS: BP 119/74; PULSE 95; RESP 22; TEMP 37.3; O2SAT 89
[2024-01-28] MEDS: Atorvastatin Calcium 80 MG TABLET PO (22:55)
[2024-01-28 23:13] VITALS: BP 127/70; PULSE 98; RESP 24; TEMP 36.6; O2SAT 92
[2024-01-29] VITALS (8 sets, daily range): BP systolic 129–143; BP diastolic 60–87; PULSE 93–112; RESP 20; TEMP 36.4–37.3; O2SAT 90–92
[2024-01-29] MEDS: Piperacillin Sodium/Tazobactam 3.375 GM in 0.9 % Sodium Chloride 50 ML IV ×4 (03:08→22:47)
[2024-01-29] MEDS: HYDROmorphone HCl 0.5 MG/0.5 ML SYRINGE IVPUSH (03:11)
[2024-01-29 07:28] LABS: Basophils Absolute Auto 0.1 X10*3/uL (0.0-0.2); Basophils Percent Auto 0.2 % (0-2); Eosinophils Absolute Auto 0.3 X10*3/uL (0.0-0.4); Eosinophils Percent Auto 1.1 % (0-4); Hematocrit 35.9 % (42.0-52.0); Hemoglobin 12.6 g/dl (14.0-18.0); Imm Gran Abs Auto 0.17 X10*3/uL (0.00-0.03); Imm Gran Pct Auto 0.7 % (0.0-0.4); Lymphocytes Absolute Auto 1.3 X10*3/uL (1.2-4.9); Lymphocytes Percent Auto 5.3 % (20-40); MANUAL DIFF FLAG SCAN; Mean Corpuscular HGB Conc 35.1 g/dl (31.0-36.0); Mean Corpuscular Hemoglobin 31.2 pg (27.0-33.0); Mean Corpuscular Volume 88.9 fL (80.0-98.0); Mean Platelet Volume 10.4 fL (9.4-12.4); Monocytes Absolute Auto 1.1 X10*3/uL (0.1-1.2); Monocytes Percent Auto 4.5 % (2-11); Neutrophils Absolute Auto 21.3 x10*3/uL (2.0-8.3); Neutrophils Percent Auto 88.2 % (45-73); Platelet Count 316 X10*3/uL (160-400); Red Blood Count 4.04 X10*6/uL (4.60-5.80); Red Cell Distribution Width 14.6 % (11.0-16.0); SCAN SMEAR FLAG 1; White Blood Count 24.1 X10*3/uL (4.8-10.8)
[2024-01-29 07:48] LABS: SLIDE REVIEW VERIFIED
[2024-01-29] MEDS: 0.9 % Sodium Chloride Flush 3 ML SYRINGE IVFLUSH ×3 (08:13→22:45)
[2024-01-29] MEDS: Triamterene/HCTZ 37.5/25 TABLET 1 TAB PO (08:14)
[2024-01-29] MEDS: cilostazoL 100 MG TABLET PO (08:14)
[2024-01-29] MEDS: Docusate Sodium 100 MG CAPSULE PO ×2 (08:14→22:45)
[2024-01-29] MEDS: oxyCODONE HCl Immed Release 5 MG TABLET PO ×3 (08:15→22:51)
--- NOTE | 2024-01-29 10:11 | P.PNGS_ITS ---
Subjective Subjective Date of Service: 01/29/24 Interval history: Feels bloated this morning. Ambulated halls with once last night. Continues to c/o incisional pain but comfortable. Passing flatus but no BM. Physical Exam 2 Vital Signs: Vital Signs: Last Vital Signs Temp 98.9 F 01/29/24 07:42 Pulse 94 01/29/24 07:42 Resp 20 01/29/24 07:42 BP 129/60 01/29/24 08:14 Pulse Ox 92 01/29/24 07:42 O2 Del Method Nasal Cannula 01/29/24 07:42 O2 Flow Rate 5 01/29/24 07:42 FiO2 50 01/27/24 19:52 BMI result Body Mass Index 33.1 Const: General: comfortable, no acute distress and alert O rientation/consciousness: patient oriented x3 Resp: Effort & Inspection: normal respiratory effort, able to speak in complete sentences, no respiratory distress, not tachypneic and no use of accessory muscles GI: Inspection: Yes distended and Yes incision (clean) Palpation (GI): Soft to palpation, Tenderness to palpation present (GI) (mild diffuse) and no guarding Percussion: Yes tympanic to percussion Skin: General skin exam: no rashes or lesions noted Neuro: General: patient oriented x3 and moves all extremities Objective Data Active Medications Atorvastatin Calcium (Atorvastatin Calcium 80 Mg Tablet) 80 mg PO BEDTIME [facility] Last Admin: 01/28/24 22:55 Dose: 80 mg Documented By: PALMIRA Calcium Carbonate (Calcium Carbonate 750 Mg Tab.Chew) 750 mg PO Q4H PRN PRN Reason: Heartburn Cilostazol (Cilostazol 100 Mg Tablet) 100 mg PO DAILY [facility] Last Admin: 01/29/24 08:14 Dose: 100 mg Documented By: LIVAN Docusate Sodium (Docusate Sodium 100 Mg Capsule) 100 mg PO BID [facility] Last Admin: 01/29/24 08:14 Dose: 100 mg Documented By: LIVAN Enoxaparin Sodium (Enoxaparin Sodium 40 Mg/0.4 Ml Syringe) 40 mg SUBCUT Q24H [facility] Last Admin: 01/28/24 13:30 Dose: 40 mg Documented By: DEXTER Hydromorphone HCl (Hydromorphone Hcl 0.5 Mg/0.5 Ml Syringe) 0.5 mg IVPUSH Q3H PRN; Protocol PRN Reason: Pain, Severe (Pain Scale 7-10) Last Admin: 01/29/24 03:11 Dose: 0.5 mg Documented By: PALMIRA Piperacillin Sod/Tazobactam (Sod 3.375 gm/ Sodium Chloride) 50 mls @ 100 mls/hr IV Q6H [facility] Last Infusion: 01/29/24 10:00 Dose: Infused Documented By: LIVAN Magnesium Hydroxide (Milk Of Magnesia 30 Ml Oral.Susp) 30 ml PO DAILY PRN PRN Reason: Constipation Melatonin (Melatonin 3 Mg Tablet) 6 mg PO BEDTIME PRN PRN Reason: Insomnia Ondansetron HCl (Ondansetron Hcl 4 Mg/2 Ml Vial) 4 mg IVPUSH QID PRN PRN Reason: Nausea Oxycodone HCl (Oxycodone Hcl Immed Release 5 Mg Tablet) 5 mg PO Q6H PRN PRN Reason: Pain, Moderate(Pain Scale 4-6) Last Admin: 01/29/24 08:15 Dose: 5 mg Documented By: LIVAN Sodium Chloride (0.9 % Sodium Chloride Flush 3 Ml Syringe) [address] [facility] Last Admin: 01/29/24 08:13 Dose: 3 ml Documented By: LIVAN Triamterene/Hydrochlorothiazide (Triamterene/Hctz 37.5/25 Tablet) 1 tab PO DAILY [facility]; Protocol Last Admin: 01/29/24 08:14 Dose: 1 tab Documented By: LIVAN Labs 01/29/24 07:02 01/28/24 06:13 Labs: Laboratory Results - last 24 hr 01/29/24 07:02 MCV 88.9 MCH 31.2 MCHC 35.1 RDW 14.6 Plt Count 316 MPV 10.4 Immature Gran % (Auto) 0.7 H Neut % (Auto) 88.2 H Lymph % (Auto) 5.3 L [place] % (Auto) 4.5 Eos % (Auto) 1.1 Baso % (Auto) 0.2 Lymph # (Auto) 1.3 [place] # (Auto) 1.1 Eos # (Auto) 0.3 Baso # (Auto) 0.1 Abs Immat Gran (auto) 0.17 H Absolute Neuts (auto) 21.3 H Absolute Nucleated RBC 0.000 Nucleated RBC % (auto) 0.0 Smear Tech's Comments VERIFIED Microbiology Microbiology Results: Microbiology 01/27/24 07:08 Blood Culture - Preliminary Blood - Venous No growth after 48 hours. 01/27/24 07:08 Blood Culture - Preliminary Blood - Venous No growth after 48 hours. Procedures Date of Service Date of Service: 01/29/24 Progress Note: A&P Assessment and plan (1) S/P laparoscopic appendectomy: Status: Acute (2) Respiratory failure with hypoxia: Status: Acute Plan POD #2 s/p lap appy for perforated appendicitis. Continues to do fairly well post op. Supplemental O2 requirements decreasing. VSS. Abd distended this am, softly, incisions clean. WBC slightly improved. Cont IV abx, repeat CBC in AM. Diet as tolerated. Bowel regimen. Encouraged to increase activity today, OOB to recliner and ambulate halls. Wean O2 as tolerated. Time Spent With Patient Time: Total time managing care of this patient today ____ minutes. Quality Stroke Does the patient have a stroke diagnosis?: No VTE Prior VTE?: No VTE Risk Level:: Surgical - moderate VTE Device Contraindication: N/A - Device Ordered VTE Drug Contraindication: N/A - Med Ordered
--- NOTE | 2024-01-29 11:39 | HO.PM.IMPN ---
Subjective Subjective Date of Service: 01/29/24 Interval History: s/p lap appy on 01/26 for perforated appendicitis post op complicated by hypoxia that assymptomatic overal improving and O2 requirement trending darleen Physical Exam Vital Signs: Vital Signs: Last Vital Signs Temp 98.6 F 01/29/24 10:48 Pulse 93 01/29/24 10:48 Resp 20 01/29/24 10:48 BP 141/79 H 01/29/24 10:48 Pulse Ox 92 01/29/24 10:48 O2 Del Method Nasal Cannula 01/29/24 07:42 O2 Flow Rate 5 01/29/24 10:48 FiO2 50 01/27/24 19:52 BMI result Body Mass Index 33.1 Const: Other: General: AO X 3, no acute distress Resp: decrease breath sounds CVS: S1,S2,RRR GI: tender around incisions Skin: No rash Neuro: motor grossly intact Psych: appropriate affect Objective Data Active Medications Atorvastatin Calcium (Atorvastatin Calcium 80 Mg Tablet) 80 mg PO BEDTIME [facility] Last Admin: 01/28/24 22:55 Dose: 80 mg Documented By: PALMIRA Calcium Carbonate (Calcium Carbonate 750 Mg Tab.Chew) 750 mg PO Q4H PRN PRN Reason: Heartburn Cilostazol (Cilostazol 100 Mg Tablet) 100 mg PO DAILY [facility] Last Admin: 01/29/24 08:14 Dose: 100 mg Documented By: LIVAN Docusate Sodium (Docusate Sodium 100 Mg Capsule) 100 mg PO BID [facility] Last Admin: 01/29/24 08:14 Dose: 100 mg Documented By: LIVAN Enoxaparin Sodium (Enoxaparin Sodium 40 Mg/0.4 Ml Syringe) 40 mg SUBCUT Q24H [facility] Last Admin: 01/28/24 13:30 Dose: 40 mg Documented By: DEXTER Hydromorphone HCl (Hydromorphone Hcl 0.5 Mg/0.5 Ml Syringe) 0.5 mg IVPUSH Q3H PRN; Protocol PRN Reason: Pain, Severe (Pain Scale 7-10) Last Admin: 01/29/24 03:11 Dose: 0.5 mg Documented By: PALMIRA Piperacillin Sod/Tazobactam (Sod 3.375 gm/ Sodium Chloride) 50 mls @ 100 mls/hr IV Q6H [facility] Last Infusion: 01/29/24 10:00 Dose: Infused Documented By: LIVAN Magnesium Hydroxide (Milk Of Magnesia 30 Ml Oral.Susp) 30 ml PO DAILY PRN PRN Reason: Constipation Melatonin (Melatonin 3 Mg Tablet) 6 mg PO BEDTIME PRN PRN Reason: Insomnia Ondansetron HCl (Ondansetron Hcl 4 Mg/2 Ml Vial) 4 mg IVPUSH QID PRN PRN Reason: Nausea Oxycodone HCl (Oxycodone Hcl Immed Release 5 Mg Tablet) 5 mg PO Q6H PRN PRN Reason: Pain, Moderate(Pain Scale 4-6) Last Admin: 01/29/24 08:15 Dose: 5 mg Documented By: LIVAN Sodium Chloride (0.9 % Sodium Chloride Flush 3 Ml Syringe) 3 ml IVFLUSH QSHIFT [facility] Last Admin: 01/29/24 08:13 Dose: 3 ml Documented By: LIVAN Triamterene/Hydrochlorothiazide (Triamterene/Hctz 37.5/25 Tablet) 1 tab PO DAILY [facility]; Protocol Last Admin: 01/29/24 08:14 Dose: 1 tab Documented By: LIVAN Labs 01/29/24 07:02 01/28/24 06:13 Labs: Laboratory Results - last 24 hr 01/29/24 07:02 MCV 88.9 MCH 31.2 MCHC 35.1 RDW 14.6 Plt Count 316 MPV 10.4 Immature Gran % (Auto) 0.7 H Neut % (Auto) 88.2 H Lymph % (Auto) 5.3 L [place] % (Auto) 4.5 Eos % (Auto) 1.1 Baso % (Auto) 0.2 Lymph # (Auto) 1.3 [place] # (Auto) 1.1 Eos # (Auto) 0.3 Baso # (Auto) 0.1 Abs Immat Gran (auto) 0.17 H Absolute Neuts (auto) 21.3 H Absolute Nucleated RBC 0.000 Nucleated RBC % (auto) 0.0 Smear Tech's Comments VERIFIED Microbiology Microbiology Results: Microbiology 01/27/24 07:08 Blood Culture - Preliminary Blood - Venous No growth after 48 hours. 01/27/24 07:08 Blood Culture - Preliminary Blood - Venous No growth after 48 hours. Assessment and Plan (1) S/P laparoscopic appendectomy: Status: Acute (2) Respiratory failure with hypoxia: Status: Acute Plan Pt is a 73 yo male with a pmhx significant for HTN, CAD, mild stage 1 COPD and PVD, who presented to the ED this morning with abd pain and nausea, found to have sepsis secondary to a perforated appendix, now s/p lap appy and having post op acute respiratory failure with hypoxia requiring high flow O2. s/p lap appy - plan per surgery acute respiratory failure -suspect post op atelectasis - transitioned from high machelle to nasal elie 7 and now 5 - CXR - hypoinflation of the lungs with mild bibasilar atelectasis - VBG ok - tele due to ?frequent PVCs yesterday post op, HR has been normal -wean off O2, incentive spirometry stage 1 COPD - no acute exacerbation - no wheezing on exam -inhalers PRN HTN - continue triamterene-hctz, PAD/CAD - continue cilostazol, statin lovenox for dvt prophylaxis Thank you for allowing me to participate in the pt's care. Will continue to follow. Please contact the medical team if any questions or concerns. Quality Stroke Does the patient have a stroke diagnosis?: No VTE Prior VTE?: No VTE Risk Level:: Surgical - moderate VTE Device Contraindication: N/A - Device Ordered VTE Drug Contraindication: N/A - Med Ordered
--- NOTE | 2024-01-29 11:50 | MHC.CM.PN ---
EMR REVIEWED, PT S/P LAP APPY D/T PERFORATED APPENDICITIS, ACUTE RESP FAILURE W/HYPOXIA, PT REMAINS NOW OFF HI FLOW AND ON 5L NC, PT AWAITING RETURN OF BOWEL FX, NO PLAN FOR DC AT THIS TIME, CM WILL CONT TO FOLLOW DC NEEDS.
[2024-01-29] MEDS: Enoxaparin Sodium 40 MG/0.4 ML SYRINGE SUBCUT (13:08)
[2024-01-29 15:44] LABS: Appearance Urine Clear; Color Urine Yellow; Glucose Urine UA Negative (Negative); Leukocyte Esterase Urine Negative (Negative); Nitrite Urine Negative (Negative); PH 8.5 (5.0-9.0); Specific Gravity - Urine 1.015 (1.005-1.025); UMIC TRIGGER UACC YES; Urine Blood Trace (Negative); Urine Ketones Negative (Negative); Urine Protein 30 (1+) mg/dL (Neg-Trace)
[2024-01-29 15:49] LABS: Bacteria Urine None Seen (None Seen); Hyaline Casts Urine 0-2 /LPF (0-2); Squamous Epithelial Cell Urine 0-2 /HPF (0-2); WBC Urine 0-5 /HPF (0-5)
[2024-01-29] MEDS: Atorvastatin Calcium 80 MG TABLET PO (22:45)
[2024-01-29] MEDS: guaiFEN/Codeine SF 200/20/10ML 10 ML LIQUID PO (23:09)
[2024-01-29] MEDS: Albuterol/Iprat 2.5/0.5MG 3 ML AMPUL.NEB INHALE (23:52)
[2024-01-30] VITALS (8 sets, daily range): BP systolic 124–156; BP diastolic 69–89; PULSE 90–117; RESP 17–22; TEMP 36.3–37; O2SAT 91–94
--- NOTE | 2024-01-30 03:46 | PM.EVENT ---
Event Note Date of Service: 01/30/24 Event Note: Nurse reported increasing oxygen requirements overnight. ?LIZZ. Patient without dyspnea. Obtaining chest x-ray and VBG Time Spent With Patient Time: Total time managing care of this patient today ____ minutes.
[2024-01-30] MEDS: Piperacillin Sodium/Tazobactam 3.375 GM in 0.9 % Sodium Chloride 50 ML IV ×4 (04:01→21:43)
[2024-01-30 04:53] LABS: Venous Blood Gas Refer to POC result
[2024-01-30 04:57] LABS: VBG Base Excess 2.3 mmol/L; VBG HCO3 25 mmol/L (22-26); VBG pCO2 34 mmHg; VBG pH 7.47 (7.32-7.43); VBG pO2 63 mmHg
[2024-01-30] MEDS: Docusate Sodium 100 MG CAPSULE PO ×2 (09:03→21:43)
[2024-01-30] MEDS: Triamterene/HCTZ 37.5/25 TABLET 1 TAB PO (09:03)
[2024-01-30] MEDS: cilostazoL 100 MG TABLET PO (09:07)
[2024-01-30] MEDS: 0.9 % Sodium Chloride Flush 3 ML SYRINGE IVFLUSH ×2 (09:09→21:39)
[2024-01-30 09:11] LABS: Basophils Percent Auto 0.2 % (0-2); Eosinophils Absolute Auto 0.2 X10*3/uL (0.0-0.4); Hematocrit 34.9 % (42.0-52.0); Hemoglobin 12.5 g/dl (14.0-18.0); Imm Gran Abs Auto 0.15 X10*3/uL (0.00-0.03); Imm Gran Pct Auto 0.7 % (0.0-0.4); Lymphocytes Absolute Auto 1.3 X10*3/uL (1.2-4.9); Lymphocytes Percent Auto 6.5 % (20-40); MANUAL DIFF FLAG SCAN; Mean Corpuscular HGB Conc 35.8 g/dl (31.0-36.0); Mean Corpuscular Hemoglobin 31.4 pg (27.0-33.0); Mean Corpuscular Volume 87.7 fL (80.0-98.0); Mean Platelet Volume 10.3 fL (9.4-12.4); Monocytes Absolute Auto 1.6 X10*3/uL (0.1-1.2); Monocytes Percent Auto 7.8 % (2-11); Neutrophils Absolute Auto 16.9 x10*3/uL (2.0-8.3); Neutrophils Percent Auto 83.8 % (45-73); Platelet Count 295 X10*3/uL (160-400); Red Blood Count 3.98 X10*6/uL (4.60-5.80); Red Cell Distribution Width 14.6 % (11.0-16.0); SCAN SMEAR FLAG 1; White Blood Count 20.1 X10*3/uL (4.8-10.8)
[2024-01-30 09:58] LABS: SLIDE REVIEW VERIFIED
--- NOTE | 2024-01-30 10:45 | P.PNIM_ITS ---
Subjective Subjective Date of Service: 01/30/24 Interval History: s/p lap appy on 01/26 for perforated appendicitis post op complicated by hypoxia that assymptomatic O2 requirement went up overnight, but remains assymptomatic Physical Exam 2 Vital Signs: Vital Signs: Last Vital Signs Temp 98.3 F 01/30/24 07:53 Pulse 93 01/30/24 07:53 Resp 22 H 01/30/24 07:53 BP 156/82 H 01/30/24 07:53 Pulse Ox 92 01/30/24 07:53 O2 Del Method Oxymask 01/30/24 07:53 O2 Flow Rate 7.5 01/30/24 07:53 FiO2 50 01/27/24 19:52 BMI result Body Mass Index 33.1 Objective Data Active Medications Albuterol/Ipratropium (Albuterol/Iprat 2.5/0.5mg 3 Ml Ampul.Neb) 3 ml INHALE Q4H PRN PRN Reason: Wheezing Last Admin: 01/29/24 23:52 Dose: 3 ml Documented By: YONAS Atorvastatin Calcium (Atorvastatin Calcium 80 Mg Tablet) 80 mg PO BEDTIME [facility] Last Admin: 01/29/24 22:45 Dose: 80 mg Documented By: ROSENDO Calcium Carbonate (Calcium Carbonate 750 Mg Tab.Chew) 750 mg PO Q4H PRN PRN Reason: Heartburn Cilostazol (Cilostazol 100 Mg Tablet) 100 mg PO DAILY [facility] Last Admin: 01/30/24 09:07 Dose: 100 mg Documented By: BROSheri Docusate Sodium (Docusate Sodium 100 Mg Capsule) 100 mg PO BID [facility] Last Admin: 01/30/24 09:03 Dose: 100 mg Documented By: JOSELITO Enoxaparin Sodium (Enoxaparin Sodium 40 Mg/0.4 Ml Syringe) 40 mg SUBCUT Q24H [facility] Last Admin: 01/29/24 13:08 Dose: 40 mg Documented By: LIVAN Guaifenesin/Codeine Phosphate (Guaifen/Codeine Sf 200/20/10ml 10 Ml Liquid) 10 ml PO Q4H PRN PRN Reason: Cough Last Admin: 01/29/24 23:09 Dose: 10 ml Documented By: ROSENDO Hydromorphone HCl (Hydromorphone Hcl 0.5 Mg/0.5 Ml Syringe) 0.5 mg IVPUSH Q3H PRN; Protocol PRN Reason: Pain, Severe (Pain Scale 7-10) Last Admin: 01/29/24 03:11 Dose: 0.5 mg Documented By: PALMIRA Piperacillin Sod/Tazobactam (Sod 3.375 gm/ Sodium Chloride) 50 mls @ 100 mls/hr IV Q6H [facility] Last Infusion: 01/30/24 09:12 Dose: 0 mls/hr Documented By: JOSELITO Magnesium Hydroxide (Milk Of Magnesia 30 Ml Oral.Susp) 30 ml PO DAILY PRN PRN Reason: Constipation Melatonin (Melatonin 3 Mg Tablet) 6 mg PO BEDTIME PRN PRN Reason: Insomnia Ondansetron HCl (Ondansetron Hcl 4 Mg/2 Ml Vial) 4 mg IVPUSH QID PRN PRN Reason: Nausea Oxycodone HCl (Oxycodone Hcl Immed Release 5 Mg Tablet) 5 mg PO Q6H PRN PRN Reason: Pain, Moderate(Pain Scale 4-6) Last Admin: 01/29/24 22:51 Dose: 5 mg Documented By: ROSENDO Sodium Chloride (0.9 % Sodium Chloride Flush 3 Ml Syringe) 3 ml IVFLUSH [facility] Last Admin: 01/30/24 09:09 Dose: 3 ml Documented By: JOSELITO Triamterene/Hydrochlorothiazide (Triamterene/Hctz 37.5/25 Tablet) 1 tab PO DAILY [facility]; Protocol Last Admin: 01/30/24 09:03 Dose: 1 tab Documented By: JOSELITO Labs 01/30/24 08:00 01/28/24 06:13 Labs: Laboratory Results - last 24 hr 01/29/24 01/30/24 01/30/24 15:40 04:51 08:00 MCV 87.7 MCH 31.4 MCHC 35.8 RDW 14.6 Plt Count 295 MPV 10.3 Immature Gran % (Auto) 0.7 H Neut % (Auto) 83.8 H Lymph % (Auto) 6.5 L [place] % (Auto) 7.8 Eos % (Auto) 1.0 Baso % (Auto) 0.2 Lymph # (Auto) 1.3 [place] # (Auto) 1.6 H Eos # (Auto) 0.2 Baso # (Auto) 0.0 Abs Immat Gran (auto) 0.15 H Absolute Neuts (auto) 16.9 H Absolute Nucleated RBC 0.000 Nucleated RBC % (auto) 0.0 Smear Tech's Comments VERIFIED VBG pH 7.47 H VBG pCO2 34 VBG pO2 63 VBG HCO3 25 VBG O2 Saturation 91.0 VBG Base Excess 2.3 Urine Color Yellow Urine Appearance Clear Urine pH 8.5 Ur Specific [place] 1.015 Urine Protein 30 (1+) H Urine Glucose (UA) Negative Urine Ketones Negative Urine Blood Trace H Urine Nitrite Negative Ur Leukocyte Esterase Negative Urine RBC 3-5 H Urine WBC 0-5 Ur Squamous Epith Cells 0-2 Urine Bacteria None Seen Hyaline Casts 0-2 Microbiology Microbiology Results: Microbiology 01/27/24 07:08 Blood Culture - Preliminary Blood - Venous No growth after 48 hours. 01/27/24 07:08 Blood Culture - Preliminary Blood - Venous No growth after 48 hours. Assessment and Plan (1) S/P laparoscopic appendectomy: Status: Acute (2) Respiratory failure with hypoxia: Status: Acute Plan Pt is a 73 yo male with a pmhx significant for HTN, CAD, mild stage 1 COPD and PVD, who presented to the ED this morning with abd pain and nausea, found to have sepsis secondary to a perforated appendix, now s/p lap appy and having post op acute respiratory failure with hypoxia requiring high flow O2. s/p lap appy - plan per surgery acute respiratory failure -suspect post op atelectasis - transitioned from high machelle to nasal elie 7 and now 5 - CXR - hypoinflation of the lungs with mild bibasilar atelectasis - VBG ok - tele due to ?frequent PVCs yesterday post op, HR has been normal -wean off O2, incentive spirometry -given persistent hypoxia, will get CT of chest stage 1 COPD - no acute exacerbation - no wheezing on exam -inhalers PRN HTN - continue triamterene-hctz, PAD/CAD - continue cilostazol, statin lovenox for dvt prophylaxis Thank you for allowing me to participate in the pt's care. Will continue to follow. Please contact the medical team if any questions or concerns. Quality Stroke Does the patient have a stroke diagnosis?: No VTE Prior VTE?: No VTE Risk Level:: Surgical - moderate VTE Device Contraindication: N/A - Device Ordered VTE Drug Contraindication: N/A - Med Ordered
--- NOTE | 2024-01-30 10:53 | P.PNGS_ITS ---
Subjective Subjective Date of Service: 01/30/24 Interval history: Patient feels that he is doing okay. Abdomen is still swollen he thinks. Passed a little flatus last night. Tolerating his diet. He has been up out of bed/ambulating. White blood cell count down to 20.1 (from 26 preop) Physical Exam 2 Vital Signs: Vital Signs: Last Vital Signs Temp 98.3 F 01/30/24 07:53 Pulse 93 01/30/24 07:53 Resp 22 H 01/30/24 07:53 BP 156/82 H 01/30/24 07:53 Pulse Ox 92 01/30/24 07:53 O2 Del Method Oxymask 01/30/24 07:53 O2 Flow Rate 7.5 01/30/24 07:53 FiO2 50 01/27/24 19:52 BMI result Body Mass Index 33.1 GI: Other: Abdomen mildly distended. Incisions all clean dry and intact. Incisional tenderness. No evidence of any guarding, rebound, or rigidity. Objective Data Active Medications Albuterol/Ipratropium (Albuterol/Iprat 2.5/0.5mg 3 Ml Ampul.Neb) 3 ml INHALE Q4H PRN PRN Reason: Wheezing Last Admin: 01/29/24 23:52 Dose: 3 ml Documented By: YONAS Atorvastatin Calcium (Atorvastatin Calcium 80 Mg Tablet) 80 mg PO BEDTIME [facility] Last Admin: 01/29/24 22:45 Dose: 80 mg Documented By: ROSENDO Calcium Carbonate (Calcium Carbonate 750 Mg Tab.Chew) 750 mg PO Q4H PRN PRN Reason: Heartburn Cilostazol (Cilostazol 100 Mg Tablet) 100 mg PO DAILY [facility] Last Admin: 01/30/24 09:07 Dose: 100 mg Documented By: BROSheri Docusate Sodium (Docusate Sodium 100 Mg Capsule) 100 mg PO BID [facility] Last Admin: 01/30/24 09:03 Dose: 100 mg Documented By: JOSELITO Enoxaparin Sodium (Enoxaparin Sodium 40 Mg/0.4 Ml Syringe) 40 mg SUBCUT Q24H [facility] Last Admin: 01/29/24 13:08 Dose: 40 mg Documented By: LIVAN Guaifenesin/Codeine Phosphate (Guaifen/Codeine Sf 200/20/10ml 10 Ml Liquid) 10 ml PO Q4H PRN PRN Reason: Cough Last Admin: 01/29/24 23:09 Dose: 10 ml Documented By: ROSENDO Hydromorphone HCl (Hydromorphone Hcl 0.5 Mg/0.5 Ml Syringe) 0.5 mg IVPUSH Q3H PRN; Protocol PRN Reason: Pain, Severe (Pain Scale 7-10) Last Admin: 01/29/24 03:11 Dose: 0.5 mg Documented By: PALMIRA Piperacillin Sod/Tazobactam (Sod 3.375 gm/ Sodium Chloride) 50 mls @ 100 mls/hr IV Q6H [facility] Last Infusion: 01/30/24 09:12 Dose: 0 mls/hr Documented By: JOSELITO Magnesium Hydroxide (Milk Of Magnesia 30 Ml Oral.Susp) 30 ml PO DAILY PRN PRN Reason: Constipation Melatonin (Melatonin 3 Mg Tablet) 6 mg PO BEDTIME PRN PRN Reason: Insomnia Ondansetron HCl (Ondansetron Hcl 4 Mg/2 Ml Vial) 4 mg IVPUSH QID PRN PRN Reason: Nausea Oxycodone HCl (Oxycodone Hcl Immed Release 5 Mg Tablet) 5 mg PO Q6H PRN PRN Reason: Pain, Moderate(Pain Scale 4-6) Last Admin: 01/29/24 22:51 Dose: 5 mg Documented By: ROSENDO Sodium Chloride (0.9 % Sodium Chloride Flush 3 Ml Syringe) 3 ml IVFLUSH QSHIFT [facility] Last Admin: 01/30/24 09:09 Dose: 3 ml Documented By: JOSELITO Triamterene/Hydrochlorothiazide (Triamterene/Hctz 37.5/25 Tablet) 1 tab PO DAILY [facility]; Protocol Last Admin: 01/30/24 09:03 Dose: 1 tab Documented By: JOSELITO Labs 01/30/24 08:00 01/28/24 06:13 Labs: Laboratory Results - last 24 hr 01/29/24 01/30/24 01/30/24 15:40 04:51 08:00 MCV 87.7 MCH 31.4 MCHC 35.8 RDW 14.6 Plt Count 295 MPV 10.3 Immature Gran % (Auto) 0.7 H Neut % (Auto) 83.8 H Lymph % (Auto) 6.5 L [place] % (Auto) 7.8 Eos % (Auto) 1.0 Baso % (Auto) 0.2 Lymph # (Auto) 1.3 [place] # (Auto) 1.6 H Eos # (Auto) 0.2 Baso # (Auto) 0.0 Abs Immat Gran (auto) 0.15 H Absolute Neuts (auto) 16.9 H Absolute Nucleated RBC 0.000 Nucleated RBC % (auto) 0.0 Smear Tech's Comments VERIFIED VBG pH 7.47 H VBG pCO2 34 VBG pO2 63 VBG HCO3 25 VBG O2 Saturation 91.0 VBG Base Excess 2.3 Urine Color Yellow Urine Appearance Clear Urine pH 8.5 Ur Specific [place] 1.015 Urine Protein 30 (1+) H Urine Glucose (UA) Negative Urine Ketones Negative Urine Blood Trace H Urine Nitrite Negative Ur Leukocyte Esterase Negative Urine RBC 3-5 H Urine WBC 0-5 Ur Squamous Epith Cells 0-2 Urine Bacteria None Seen Hyaline Casts 0-2 Microbiology Microbiology Results: Microbiology 01/27/24 07:08 Blood Culture - Preliminary Blood - Venous No growth after 48 hours. 01/27/24 07:08 Blood Culture - Preliminary Blood - Venous No growth after 48 hours. Procedures Date of Service Date of Service: 01/30/24 Progress Note: A&P Assessment and plan (1) S/P laparoscopic appendectomy: Status: Acute (2) Ruptured appendicitis: Status: Acute Plan Encourage incentive spirometry, ambulation, wean O2, ambulation. Labs in the morning Time Spent With Patient Time: Total time managing care of this patient today ____ minutes. Quality Stroke Does the patient have a stroke diagnosis?: No VTE Prior VTE?: No VTE Risk Level:: Surgical - moderate VTE Device Contraindication: N/A - Device Ordered VTE Drug Contraindication: N/A - Med Ordered
[2024-01-30 11:15] LABS: Blood Urea Nitrogen 15 mg/dL (9-16); Calcium 8.6 mg/dL (8.4-10.2); Creatinine Clr Calc Pharmacy 76.3; Estimated Glomerular Filt Rate > 60; Glucose Random 91 mg/dL (60-115)
[2024-01-30 11:29] LABS: Anion Gap 14 (12-20); Carbon Dioxide 23 mmol/L (22-29); Chloride 101 mmol/L (96-108); Sodium 135 mmol/L (135-145)
[2024-01-30] MEDS: Enoxaparin Sodium 40 MG/0.4 ML SYRINGE SUBCUT (13:55)
[2024-01-30] MEDS: iohexoL 350 MG/ML 100 ML INFUS..BTL IV (15:26)
[2024-01-30] MEDS: Potassium Chloride Packet 20 MEQ PACKET 40 MEQ PO (15:28)
[2024-01-30] MEDS: Melatonin 3 MG TABLET 6 MG PO (21:43)
[2024-01-30] MEDS: Atorvastatin Calcium 80 MG TABLET PO (21:43)
[2024-01-30] MEDS: Albuterol/Iprat 2.5/0.5MG 3 ML AMPUL.NEB INHALE (22:41)
[2024-01-31] MEDS: Piperacillin Sodium/Tazobactam 3.375 GM in 0.9 % Sodium Chloride 50 ML IV ×4 (02:56→20:08)
[2024-01-31 04:00] VITALS: BP 137/78; PULSE 80; RESP 18; TEMP 36.9; O2SAT 93
[2024-01-31 08:00] VITALS: BP 146/80; PULSE 82; RESP 19; TEMP 36.5; O2SAT 91
[2024-01-31] MEDS: Doxycycline Hyclate 100 MG in 0.9 % Sodium Chloride 250 ML 166.67 MG IV ×2 (08:46→20:46)
[2024-01-31] MEDS: Triamterene/HCTZ 37.5/25 TABLET 1 TAB PO (08:46)
[2024-01-31] MEDS: cilostazoL 100 MG TABLET PO (08:46)
[2024-01-31] MEDS: 0.9 % Sodium Chloride Flush 3 ML SYRINGE IVFLUSH ×2 (08:48→20:08)
--- NOTE | 2024-01-31 10:20 | P.PNIM_ITS ---
Subjective Subjective Date of Service: 01/31/24 Interval History: s/p lap appy on 01/26 for perforated appendicitis post op complicated by hypoxia that assymptomatic O2 requirement is down, CT chest no PE, but suggestive of PNA Physical Exam 2 Vital Signs: Vital Signs: Last Vital Signs Temp 97.7 F 01/31/24 08:00 Pulse 82 01/31/24 08:00 Resp 19 01/31/24 08:00 BP 146/80 H 01/31/24 08:00 Pulse Ox 91 L 01/31/24 08:00 O2 Del Method Room Air 01/31/24 08:00 O2 Flow Rate 4 01/31/24 04:00 FiO2 50 01/27/24 19:52 BMI result Body Mass Index 33.1 Const: Other: General: AO X 3, no acute distress Resp: decrease breath sounds CVS: S1,S2,RRR GI: tender around incisions Skin: No rash Neuro: motor grossly intact Psych: appropriate affect Objective Data Active Medications Albuterol/Ipratropium (Albuterol/Iprat 2.5/0.5mg 3 Ml Ampul.Neb) 3 ml INHALE Q4H PRN PRN Reason: Wheezing Last Admin: 01/30/24 22:41 Dose: 3 ml Documented By: ZHENG Atorvastatin Calcium (Atorvastatin Calcium 80 Mg Tablet) 80 mg PO BEDTIME [facility] Last Admin: 01/30/24 21:43 Dose: 80 mg Documented By: ROSENDO Calcium Carbonate (Calcium Carbonate 750 Mg Tab.Chew) 750 mg PO Q4H PRN PRN Reason: Heartburn Cilostazol (Cilostazol 100 Mg Tablet) 100 mg PO DAILY [facility] Last Admin: 01/31/24 08:46 Dose: 100 mg Documented By: KADY Docusate Sodium (Docusate Sodium 100 Mg Capsule) 100 mg PO BID [facility] Last Admin: 01/30/24 21:43 Dose: 100 mg Documented By: ROSENDO Enoxaparin Sodium (Enoxaparin Sodium 40 Mg/0.4 Ml Syringe) 40 mg SUBCUT Q24H [facility] Last Admin: 01/30/24 13:55 Dose: 40 mg Documented By: DOBROB Guaifenesin/Codeine Phosphate (Guaifen/Codeine Sf 200/20/10ml 10 Ml Liquid) 10 ml PO Q4H PRN PRN Reason: Cough Last Admin: 01/29/24 23:09 Dose: 10 ml Documented By: ROSENDO Hydromorphone HCl (Hydromorphone Hcl 0.5 Mg/0.5 Ml Syringe) 0.5 mg IVPUSH Q3H PRN; Protocol PRN Reason: Pain, Severe (Pain Scale 7-10) Last Admin: 01/29/24 03:11 Dose: 0.5 mg Documented By: PALMIRA Piperacillin Sod/Tazobactam (Sod 3.375 gm/ Sodium Chloride) 50 mls @ 100 mls/hr IV Q6H [facility] Last Infusion: 01/31/24 03:26 Dose: Infused Documented By: ROSENDO Doxycycline Hyclate 100 mg/ (Sodium Chloride) 250 mls @ 166.67 mls/hr IV Q12H [facility] Last Admin: 01/31/24 08:46 Dose: 166.67 mls/hr Documented By: KADY Magnesium Hydroxide (Milk Of Magnesia 30 Ml Oral.Susp) 30 ml PO DAILY PRN PRN Reason: Constipation Melatonin (Melatonin 3 Mg Tablet) 6 mg PO BEDTIME PRN PRN Reason: Insomnia Last Admin: 01/30/24 21:43 Dose: 6 mg Documented By: ROSENDO Ondansetron HCl (Ondansetron Hcl 4 Mg/2 Ml Vial) 4 mg IVPUSH QID PRN PRN Reason: Nausea Oxycodone HCl (Oxycodone Hcl Immed Release 5 Mg Tablet) 5 mg PO Q6H PRN PRN Reason: Pain, Moderate(Pain Scale 4-6) Last Admin: 01/29/24 22:51 Dose: 5 mg Documented By: ROSENDO Sodium Chloride (0.9 % Sodium Chloride Flush 3 Ml Syringe) 3 ml IVFLUSH QSHIFT [facility] Last Admin: 01/31/24 08:48 Dose: 3 ml Documented By: KADY Triamterene/Hydrochlorothiazide (Triamterene/Hctz 37.5/25 Tablet) 1 tab PO DAILY [facility]; Protocol Last Admin: 01/31/24 08:46 Dose: 1 tab Documented By: KADY Labs 01/30/24 08:00 01/30/24 08:00 Labs: Laboratory Results - last 24 hr 01/30/24 08:00 Anion Gap 14 Estim Creat Clear Calc 76.3 Estimated GFR > 60 Random Glucose 91 Calcium 8.6 D Assessment and Plan (1) S/P laparoscopic appendectomy: Status: Acute (2) Respiratory failure with hypoxia: Status: Acute Plan Pt is a 73 yo male with a pmhx significant for HTN, CAD, mild stage 1 COPD and PVD, who presented to the ED this morning with abd pain and nausea, found to have sepsis secondary to a perforated appendix, now s/p lap appy and having post op acute respiratory failure with hypoxia requiring high flow O2. s/p lap appy - plan per surgery acute respiratory failure -suspect post op atelectasis - CT chest no PE but PNA -O2 requirement is better -continue using incentive spirometry -Add Doxy to Zosyn stage 1 COPD - no acute exacerbation - no wheezing on exam -inhalers PRN HTN - continue triamterene-hctz, monotor potassium Hypokalemia--corrected yesterday recheck, and check mag PAD/CAD - continue cilostazol, statin lovenox for dvt prophylaxis Will continue to follow for now Quality Stroke Does the patient have a stroke diagnosis?: No VTE Prior VTE?: No VTE Risk Level:: Surgical - moderate VTE Device Contraindication: N/A - Device Ordered VTE Drug Contraindication: N/A - Med Ordered
[2024-01-31 11:24] LABS: Hemoglobin 13.4 g/dl (14.0-18.0); Mean Corpuscular HGB Conc 36.2 g/dl (31.0-36.0); Mean Corpuscular Hemoglobin 30.9 pg (27.0-33.0); Mean Corpuscular Volume 85.3 fL (80.0-98.0); Mean Platelet Volume 9.8 fL (9.4-12.4); Platelet Count 383 X10*3/uL (160-400); Red Blood Count 4.34 X10*6/uL (4.60-5.80); Red Cell Distribution Width 14.4 % (11.0-16.0); White Blood Count 15.9 X10*3/uL (4.8-10.8)
[2024-01-31 11:44] VITALS: BP 147/83; PULSE 90; RESP 19; TEMP 36.8; O2SAT 95
[2024-01-31 11:45] LABS: Anion Gap 18 (12-20); Blood Urea Nitrogen 13 mg/dL (9-16); Calcium 9.1 mg/dL (8.4-10.2); Carbon Dioxide 22 mmol/L (22-29); Chloride 101 mmol/L (96-108); Creatinine Clr Calc Pharmacy 77.1; Estimated Glomerular Filt Rate > 60; Glucose Random 144 mg/dL (60-115); Potassium 3.7 mmol/L (3.3-5.1); Sodium 137 mmol/L (135-145)
[2024-01-31] MEDS: Enoxaparin Sodium 40 MG/0.4 ML SYRINGE SUBCUT (11:59)
--- NOTE | 2024-01-31 15:53 | P.PNGS_ITS ---
Subjective Subjective Date of Service: 01/31/24 Interval history: Patient was evaluated with his entire family present. He is tolerating a diet. Having regular bowel habits. He is still having some respiratory issues and is on oxygen but he says he thinks he can eventually be weaned from this. He is ambulating according to his nurse. Physical Exam 2 Vital Signs: Vital Signs: Last Vital Signs Temp 98.3 F 01/31/24 11:44 Pulse 90 01/31/24 11:44 Resp 19 01/31/24 11:44 BP 147/83 H 01/31/24 11:44 Pulse Ox 95 01/31/24 11:44 O2 Del Method Room Air 01/31/24 11:44 O2 Flow Rate 4 01/31/24 04:00 FiO2 50 01/27/24 19:52 BMI result Body Mass Index 33.1 GI: Other: Abdomen is soft. All wounds clean dry and intact. Moderately corpulent abdomen Objective Data Active Medications Albuterol/Ipratropium (Albuterol/Iprat 2.5/0.5mg 3 Ml Ampul.Neb) 3 ml INHALE Q4H PRN PRN Reason: Wheezing Last Admin: 01/30/24 22:41 Dose: 3 ml Documented By: ZHENG Atorvastatin Calcium (Atorvastatin Calcium 80 Mg Tablet) 80 mg PO BEDTIME [facility] Last Admin: 01/30/24 21:43 Dose: 80 mg Documented By: ROSENDO Calcium Carbonate (Calcium Carbonate 750 Mg Tab.Chew) 750 mg PO Q4H PRN PRN Reason: Heartburn Cilostazol (Cilostazol 100 Mg Tablet) 100 mg PO DAILY [facility] Last Admin: 01/31/24 08:46 Dose: 100 mg Documented By: KADY Docusate Sodium (Docusate Sodium 100 Mg Capsule) 100 mg PO BID [facility] Last Admin: 01/31/24 10:22 Dose: Not Given Documented By: KADY Non-Admin Reason: Patient Refused Enoxaparin Sodium (Enoxaparin Sodium 40 Mg/0.4 Ml Syringe) 40 mg SUBCUT Q24H [facility] Last Admin: 01/31/24 11:59 Dose: 40 mg Documented By: KADY Guaifenesin/Codeine Phosphate (Guaifen/Codeine Sf 200/20/10ml 10 Ml Liquid) 10 ml PO Q4H PRN PRN Reason: Cough Last Admin: 01/29/24 23:09 Dose: 10 ml Documented By: ROSENDO Hydromorphone HCl (Hydromorphone Hcl 0.5 Mg/0.5 Ml Syringe) 0.5 mg IVPUSH Q3H PRN; Protocol PRN Reason: Pain, Severe (Pain Scale 7-10) Last Admin: 01/29/24 03:11 Dose: 0.5 mg Documented By: PALMIRA Piperacillin Sod/Tazobactam (Sod 3.375 gm/ Sodium Chloride) 50 mls @ 100 mls/hr IV Q6H [facility] Last Infusion: 01/31/24 13:49 Dose: Infused Documented By: KADY Doxycycline Hyclate 100 mg/ (Sodium Chloride) 250 mls @ 166.67 mls/hr IV Q12H [facility] Last Infusion: 01/31/24 10:44 Dose: Infused Documented By: KADY Magnesium Hydroxide (Milk Of Magnesia 30 Ml Oral.Susp) 30 ml PO DAILY PRN PRN Reason: Constipation Melatonin (Melatonin 3 Mg Tablet) 6 mg PO BEDTIME PRN PRN Reason: Insomnia Last Admin: 01/30/24 21:43 Dose: 6 mg Documented By: ROSENDO Ondansetron HCl (Ondansetron Hcl 4 Mg/2 Ml Vial) 4 mg IVPUSH QID PRN PRN Reason: Nausea Oxycodone HCl (Oxycodone Hcl Immed Release 5 Mg Tablet) 5 mg PO Q6H PRN PRN Reason: Pain, Moderate(Pain Scale 4-6) Last Admin: 01/29/24 22:51 Dose: 5 mg Documented By: ROSENDO Sodium Chloride (0.9 % Sodium Chloride Flush 3 Ml Syringe) 3 ml IVFLUSH QSHIFT [facility] Last Admin: 01/31/24 08:48 Dose: 3 ml Documented By: KADY Triamterene/Hydrochlorothiazide (Triamterene/Hctz 37.5/25 Tablet) 1 tab PO DAILY [facility]; Protocol Last Admin: 01/31/24 08:46 Dose: 1 tab Documented By: KADY Labs 01/31/24 11:03 01/31/24 11:03 Labs: Laboratory Results - last 24 hr 01/31/24 11:03 MCV 85.3 MCH 30.9 MCHC 36.2 H RDW 14.4 Plt Count 383 D MPV 9.8 Absolute Nucleated RBC 0.000 Nucleated RBC % (auto) 0.0 Anion Gap 18 Estim Creat Clear Calc 77.1 Estimated GFR > 60 Random Glucose 144 H Calcium 9.1 Procedures Date of Service Date of Service: 01/31/24 Progress Note: A&P Assessment and plan (1) S/P laparoscopic appendectomy: Status: Acute (2) Ruptured appendicitis: Status: Acute Plan Current plan is to encourage incentive spirometry, ambulation, out of bed, diet as tolerated, IV antibiotics. Time Spent With Patient Time: Total time managing care of this patient today ____ minutes. Quality Stroke Does the patient have a stroke diagnosis?: No VTE Prior VTE?: No VTE Risk Level:: Surgical - moderate VTE Device Contraindication: N/A - Device Ordered VTE Drug Contraindication: N/A - Med Ordered
[2024-01-31 15:58] VITALS: BP 139/84; PULSE 93; RESP 19; TEMP 36.8; O2SAT 95
[2024-01-31 19:29] VITALS: BP 145/89; PULSE 86; RESP 19; TEMP 36.6; O2SAT 95
[2024-01-31] MEDS: Atorvastatin Calcium 80 MG TABLET PO (20:03)
[2024-01-31] MEDS: Docusate Sodium 100 MG CAPSULE PO (20:03)
[2024-01-31 23:28] VITALS: BP 121/74; PULSE 73; RESP 16; TEMP 36.4; O2SAT 96
[2024-02-01] VITALS (9 sets, daily range): BP systolic 108–144; BP diastolic 68–89; PULSE 78–111; RESP 16–20; TEMP 36.6–37.2; O2SAT 92–95
[2024-02-01] MEDS: Piperacillin Sodium/Tazobactam 3.375 GM in 0.9 % Sodium Chloride 50 ML IV ×4 (04:20→22:04)
--- NOTE | 2024-02-01 06:41 | P.PNIM_ITS ---
Subjective Subjective Date of Service: 02/01/24 Interval History: s/p lap appy on 01/26 for perforated appendicitis post op complicated by hypoxia that assymptomatic O2 requirement is trending down, CT chest no PE, but suggestive of PNA Overall feels better Physical Exam 2 Vital Signs: Vital Signs: Last Vital Signs Temp 97.8 F 02/01/24 03:15 Pulse 78 02/01/24 03:15 Resp 16 02/01/24 03:15 BP 124/68 02/01/24 03:15 Pulse Ox 95 02/01/24 03:15 O2 Del Method Nasal Cannula 02/01/24 03:15 O2 Flow Rate 5 02/01/24 03:15 FiO2 50 01/27/24 19:52 BMI result Body Mass Index 33.1 Const: Other: General: AO X 3, no acute distress Resp: decrease breath sounds CVS: S1,S2,RRR GI: tender around incisions Skin: No rash Neuro: motor grossly intact Psych: appropriate affect Objective Data Active Medications Albuterol/Ipratropium (Albuterol/Iprat 2.5/0.5mg 3 Ml Ampul.Neb) 3 ml INHALE Q4H PRN PRN Reason: Wheezing Last Admin: 01/30/24 22:41 Dose: 3 ml Documented By: ZHENG Atorvastatin Calcium (Atorvastatin Calcium 80 Mg Tablet) 80 mg PO BEDTIME [facility] [place] Last Admin: 01/31/24 20:03 Dose: 80 mg Documented By: ODALYS Calcium Carbonate (Calcium Carbonate 750 Mg Tab.Chew) 750 mg PO Q4H PRN PRN Reason: Heartburn Cilostazol (Cilostazol 100 Mg Tablet) 100 mg PO DAILY [facility] [place] Last Admin: 01/31/24 08:46 Dose: 100 mg Documented By: KADY Docusate Sodium (Docusate Sodium 100 Mg Capsule) 100 mg PO BID [facility] [place] Last Admin: 01/31/24 20:03 Dose: 100 mg Documented By: ODALYS Enoxaparin Sodium (Enoxaparin Sodium 40 Mg/0.4 Ml Syringe) 40 mg SUBCUT Q24H [facility] [place] Last Admin: 01/31/24 11:59 Dose: 40 mg Documented By: KADY Guaifenesin/Codeine Phosphate (Guaifen/Codeine Sf 200/20/10ml 10 Ml Liquid) 10 ml PO Q4H PRN PRN Reason: Cough Last Admin: 01/29/24 23:09 Dose: 10 ml Documented By: ROSENDO Hydromorphone HCl (Hydromorphone Hcl 0.5 Mg/0.5 Ml Syringe) 0.5 mg IVPUSH Q3H PRN; Protocol PRN Reason: Pain, Severe (Pain Scale 7-10) Last Admin: 01/29/24 03:11 Dose: 0.5 mg Documented By: PALMIRA Piperacillin Sod/Tazobactam (Sod 3.375 gm/ Sodium Chloride) 50 mls @ 100 mls/hr IV Q6H [facility] [place] Last Infusion: 02/01/24 05:24 Dose: Infused Documented By: ODALYS Doxycycline Hyclate 100 mg/ (Sodium Chloride) 250 mls @ 166.67 mls/hr IV Q12H [facility] [place] Last Infusion: 01/31/24 22:30 Dose: Infused Documented By: ODALYS Magnesium Hydroxide (Milk Of Magnesia 30 Ml Oral.Susp) 30 ml PO DAILY PRN PRN Reason: Constipation Melatonin (Melatonin 3 Mg Tablet) 6 mg PO BEDTIME PRN PRN Reason: Insomnia Last Admin: 01/30/24 21:43 Dose: 6 mg Documented By: ROSENDO Ondansetron HCl (Ondansetron Hcl 4 Mg/2 Ml Vial) 4 mg IVPUSH QID PRN PRN Reason: Nausea Oxycodone HCl (Oxycodone Hcl Immed Release 5 Mg Tablet) 5 mg PO Q6H PRN PRN Reason: Pain, Moderate(Pain Scale 4-6) Last Admin: 01/29/24 22:51 Dose: 5 mg Documented By: ROSENDO Sodium Chloride (0.9 % Sodium Chloride Flush 3 Ml Syringe) 3 ml IVFLUSH QSHIFT [facility] [place] Last Admin: 01/31/24 20:08 Dose: 3 ml Documented By: ODALYS Triamterene/Hydrochlorothiazide (Triamterene/Hctz 37.5/25 Tablet) 1 tab PO DAILY [facility] [place]; Protocol Last Admin: 01/31/24 08:46 Dose: 1 tab Documented By: FOSTEKR Labs 01/31/24 11:03 01/31/24 11:03 Labs: Laboratory Results - last 24 hr 01/31/24 11:03 MCV 85.3 MCH 30.9 MCHC 36.2 H RDW 14.4 Plt Count 383 D MPV 9.8 Absolute Nucleated RBC 0.000 Nucleated RBC % (auto) 0.0 Anion Gap 18 Estim Creat Clear Calc 77.1 Estimated GFR > 60 Random Glucose 144 H Calcium 9.1 Assessment and Plan (1) S/P laparoscopic appendectomy: Status: Acute (2) Respiratory failure with hypoxia: Status: Acute Plan 73 yo male with a pmhx significant for HTN, CAD, mild stage 1 COPD and PVD, who presented to the ED this morning with abd pain and nausea, found to have sepsis secondary to a perforated appendix, now s/p lap appy and having post op acute respiratory failure with hypoxia requiring high flow O2. s/p lap appy - plan per surgery acute respiratory failure -suspect post op atelectasis an PNA - CT chest no PE but PNA -O2 requirement is better, wean off as jarocho -continue using incentive spirometry -continue Doxy + Zosyn stage 1 COPD - no acute exacerbation - no wheezing on exam -inhalers PRN HTN - continue triamterene-hctz, monotor potassium Hypokalemia--resolved PAD/CAD - continue cilostazol, statin lovenox for dvt prophylaxis Will continue to follow for now Quality Stroke Does the patient have a stroke diagnosis?: No VTE Prior VTE?: No VTE Risk Level:: Surgical - moderate VTE Device Contraindication: N/A - Device Ordered VTE Drug Contraindication: N/A - Med Ordered
--- NOTE | 2024-02-01 08:06 | P.PNGS_ITS ---
Subjective Subjective Date of Service: 02/01/24 Interval history: Increasing O2 requirements over the weekend, CTA/CXR performed. Negative for PE, suspicious for PNA. Remains on 5L NC. Reports no shortness of breath. States he is ambulating and OOB to recliner, using incentive spirometer. Tolerating solid diet, passing flatus and BM yesterday. Physical Exam 2 Vital Signs: Vital Signs: Last Vital Signs Temp 97.8 F 02/01/24 03:15 Pulse 78 02/01/24 03:15 Resp 16 02/01/24 03:15 BP 124/68 02/01/24 03:15 Pulse Ox 95 02/01/24 03:15 O2 Del Method Nasal Cannula 02/01/24 03:15 O2 Flow Rate 5 02/01/24 03:15 FiO2 50 01/27/24 19:52 BMI result Body Mass Index 33.1 Const: General: comfortable, no acute distress and alert O rientation/consciousness: patient oriented x3 Resp: Effort & Inspection: normal respiratory effort GI: Inspection: Yes distended (mild, soft) and Yes incision (clean) P alpation (GI): Soft to palpation, nontender and no guarding Skin: General skin exam: no rashes or lesions noted Neuro: General: patient oriented x3 and moves all extremities Objective Data Active Medications Albuterol/Ipratropium (Albuterol/Iprat 2.5/0.5mg 3 Ml Ampul.Neb) 3 ml INHALE Q4H PRN PRN Reason: Wheezing Last Admin: 01/30/24 22:41 Dose: 3 ml Documented By: ZHENG Atorvastatin Calcium (Atorvastatin Calcium 80 Mg Tablet) 80 mg PO BEDTIME [facility] Last Admin: 01/31/24 20:03 Dose: 80 mg Documented By: ODALYS Calcium Carbonate (Calcium Carbonate 750 Mg Tab.Chew) 750 mg PO Q4H PRN PRN Reason: Heartburn Cilostazol (Cilostazol 100 Mg Tablet) 100 mg PO DAILY [facility] Last Admin: 01/31/24 08:46 Dose: 100 mg Documented By: KADY Docusate Sodium (Docusate Sodium 100 Mg Capsule) 100 mg PO BID [facility] Last Admin: 01/31/24 20:03 Dose: 100 mg Documented By: ODALYS Enoxaparin Sodium (Enoxaparin Sodium 40 Mg/0.4 Ml Syringe) 40 mg SUBCUT Q24H [facility] Last Admin: 01/31/24 11:59 Dose: 40 mg Documented By: KADY Guaifenesin/Codeine Phosphate (Guaifen/Codeine Sf 200/20/10ml 10 Ml Liquid) 10 ml PO Q4H PRN PRN Reason: Cough Last Admin: 01/29/24 23:09 Dose: 10 ml Documented By: ROSENDO Hydromorphone HCl (Hydromorphone Hcl 0.5 Mg/0.5 Ml Syringe) 0.5 mg IVPUSH Q3H PRN; Protocol PRN Reason: Pain, Severe (Pain Scale 7-10) Last Admin: 01/29/24 03:11 Dose: 0.5 mg Documented By: PALMIRA Piperacillin Sod/Tazobactam (Sod 3.375 gm/ Sodium Chloride) 50 mls @ 100 mls/hr IV Q6H [facility] Last Infusion: 02/01/24 05:24 Dose: Infused Documented By: ODALYS Doxycycline Hyclate 100 mg/ (Sodium Chloride) 250 mls @ 166.67 mls/hr IV Q12H [facility] Last Infusion: 01/31/24 22:30 Dose: Infused Documented By: ODALYS Magnesium Hydroxide (Milk Of Magnesia 30 Ml Oral.Susp) 30 ml PO DAILY PRN PRN Reason: Constipation Melatonin (Melatonin 3 Mg Tablet) 6 mg PO BEDTIME PRN PRN Reason: Insomnia Last Admin: 01/30/24 21:43 Dose: 6 mg Documented By: ROSENDO Ondansetron HCl (Ondansetron Hcl 4 Mg/2 Ml Vial) 4 mg IVPUSH QID PRN PRN Reason: Nausea Oxycodone HCl (Oxycodone Hcl Immed Release 5 Mg Tablet) 5 mg PO Q6H PRN PRN Reason: Pain, Moderate(Pain Scale 4-6) Last Admin: 01/29/24 22:51 Dose: 5 mg Documented By: ROSENDO Sodium Chloride (0.9 % Sodium Chloride Flush 3 Ml Syringe) 3 ml IVFLUSH QSHIFT [facility] Last Admin: 01/31/24 20:08 Dose: 3 ml Documented By: ODALYS Triamterene/Hydrochlorothiazide (Triamterene/Hctz 37.5/25 Tablet) 1 tab PO DAILY [facility]; Protocol Last Admin: 01/31/24 08:46 Dose: 1 tab Documented By: KADY Labs 01/31/24 11:03 01/31/24 11:03 Labs: Laboratory Results - last 24 hr 01/31/24 11:03 MCV 85.3 MCH 30.9 MCHC 36.2 H RDW 14.4 Plt Count 383 D MPV 9.8 Absolute Nucleated RBC 0.000 Nucleated RBC % (auto) 0.0 Anion Gap 18 Estim Creat Clear Calc 77.1 Estimated GFR > 60 Random Glucose 144 H Calcium 9.1 Procedures Date of Service Date of Service: 02/01/24 Progress Note: A&P Assessment and plan (1) S/P laparoscopic appendectomy: Status: Acute (2) Respiratory failure with hypoxia: Status: Acute Plan POD #5 s/p lap appy for perforated appendicitis. Had increasing O2 requirements over the weekend, found to have PNA. Now on IV zosyn, doxy. WBC downtrending slowly. Increase activity today, OOB to recliner and ambulate halls. Wean O2 as tolerated. Cont incentive spirometer. Home when medically stable. Time Spent With Patient Time: Total time managing care of this patient today ____ minutes. Quality Stroke Does the patient have a stroke diagnosis?: No VTE Prior VTE?: No VTE Risk Level:: Surgical - moderate VTE Device Contraindication: N/A - Device Ordered VTE Drug Contraindication: N/A - Med Ordered
[2024-02-01] MEDS: Triamterene/HCTZ 37.5/25 TABLET 1 TAB PO (08:49)
[2024-02-01] MEDS: cilostazoL 100 MG TABLET PO (08:50)
[2024-02-01] MEDS: 0.9 % Sodium Chloride Flush 3 ML SYRINGE IVFLUSH ×3 (08:50→22:20)
[2024-02-01] MEDS: Doxycycline Hyclate 100 MG in 0.9 % Sodium Chloride 250 ML 166.67 MG IV ×2 (08:50→20:20)
[2024-02-01 09:44] LABS: Hematocrit 37.7 % (42.0-52.0); Hemoglobin 13.5 g/dl (14.0-18.0); Mean Corpuscular HGB Conc 35.8 g/dl (31.0-36.0); Mean Corpuscular Hemoglobin 30.8 pg (27.0-33.0); Mean Corpuscular Volume 86.1 fL (80.0-98.0); Platelet Count 431 X10*3/uL (160-400); Red Blood Count 4.38 X10*6/uL (4.60-5.80); Red Cell Distribution Width 14.7 % (11.0-16.0); White Blood Count 20.2 X10*3/uL (4.8-10.8)
[2024-02-01 10:01] LABS: Anion Gap 11 (12-20); Blood Urea Nitrogen 13 mg/dL (9-16); Calcium 8.8 mg/dL (8.4-10.2); Carbon Dioxide 22 mmol/L (22-29); Chloride 104 mmol/L (96-108); Estimated Glomerular Filt Rate > 60; Glucose Random 104 mg/dL (60-115); Potassium 3.4 mmol/L (3.3-5.1); Sodium 134 mmol/L (135-145)
--- NOTE | 2024-02-01 12:32 | MHC.CM.PN ---
EMR REVIEWED, PER SURGICAL NOTE DIET ADVANCED TODAY, NO PLAN FOR DC, CM WILL CONT TO FOLLOW DC NEEDS.
[2024-02-01] MEDS: Atorvastatin Calcium 80 MG TABLET PO (20:19)
[2024-02-01] MEDS: Docusate Sodium 100 MG CAPSULE PO (20:19)
[2024-02-01] MEDS: HYDROmorphone HCl 0.5 MG/0.5 ML SYRINGE IVPUSH ×2 (20:21→23:27)
[2024-02-02] VITALS (17 sets, daily range): BP systolic 111–178; BP diastolic 73–107; PULSE 72–100; RESP 12–25; TEMP 36.2–36.7; O2SAT 90–95
[2024-02-02] MEDS: HYDROmorphone HCl 0.5 MG/0.5 ML SYRINGE IVPUSH ×3 (02:41→18:01)
[2024-02-02] MEDS: Piperacillin Sodium/Tazobactam 3.375 GM in 0.9 % Sodium Chloride 50 ML IV ×4 (02:43→21:44)
--- NOTE | 2024-02-02 07:43 | P.PNGS_ITS ---
Subjective Subjective Date of Service: 02/02/24 <Shalini Juarez PA-C - Last Filed: 02/02/24 07:46> 02/02/24 <Gentry Pham MD - Last Filed: 02/02/24 08:25> Interval history: Feels overall better, still having right sided abd pain. Denies shortness of breath. OOB and ambulating. Passing flatus. <Shalini Juarez PA-C - Last Filed: 02/02/24 07:46> Physical Exam 2 Vital Signs: Vital Signs: Last Vital Signs Temp 98 F 02/02/24 07:01 Pulse 72 02/02/24 07:01 Resp 18 02/02/24 07:01 BP 132/78 02/02/24 07:01 Pulse Ox 92 02/02/24 07:01 O2 Del Method Nasal Cannula 02/02/24 07:01 O2 Flow Rate 2 02/02/24 07:01 FiO2 50 01/27/24 19:52 BMI result Body Mass Index 33.1 <Shalini Juarez PA-C - Last Filed: 02/02/24 07:46> Const: General: comfortable, no acute distress and alert <Shalini Juarez PA-C - Last Filed: 02/02/24 07:46> Orientation/consciousness: patient oriented x3 <Shalini Juarez PA-C - Last Filed: 02/02/24 07:46> Resp: Effort & Inspection: normal respiratory effort, able to speak in complete sentences and no use of accessory muscles <Shalini Juarez PA-C - Last Filed: 02/02/24 07:46> GI: Inspection: Yes distended (mild, soft ) and Yes incision (clean) < Shalini Juarez PA-C - Last Filed: 02/02/24 07:46> Palpation (GI): Soft to palpation, Tenderness to palpation present (GI) (mild RLQ) and no guarding <LINDY Benedict Last Filed: 02/02/24 07:46> Skin: General skin exam: no rashes or lesions noted <Shalini Juarez PA-C - Last Filed: 02/02/24 07:46> Neuro: General: patient oriented x3 and moves all extremities <Shalini Juarez PA-C - Last Filed: 02/02/24 07:46> Objective Data Active Medications Albuterol/Ipratropium (Albuterol/Iprat 2.5/0.5mg 3 Ml Ampul.Neb) 3 ml INHALE Q4H PRN PRN Reason: Wheezing Last Admin: 01/30/24 22:41 Dose: 3 ml Documented By: ZHENG Atorvastatin Calcium (Atorvastatin Calcium 80 Mg Tablet) 80 mg PO BEDTIME [facility] Last Admin: 02/01/24 20:19 Dose: 80 mg Documented By: SARAI Calcium Carbonate (Calcium Carbonate 750 Mg Tab.Chew) 750 mg PO Q4H PRN PRN Reason: Heartburn Cilostazol (Cilostazol 100 Mg Tablet) 100 mg PO DAILY [facility] Last Admin: 02/01/24 08:50 Dose: 100 mg Documented By: WOODY Docusate Sodium (Docusate Sodium 100 Mg Capsule) 100 mg PO BID [facility] Last Admin: 02/01/24 20:19 Dose: 100 mg Documented By: SARAI Enoxaparin Sodium (Enoxaparin Sodium 40 Mg/0.4 Ml Syringe) 40 mg SUBCUT Q24H [facility] Last Admin: 02/01/24 11:47 Dose: Not Given Documented By: WOODY Non-Admin Reason: Patient Refused Guaifenesin/Codeine Phosphate (Guaifen/Codeine Sf 200/20/10ml 10 Ml Liquid) 10 ml PO Q4H PRN PRN Reason: Cough Last Admin: 01/29/24 23:09 Dose: 10 ml Documented By: ROSENDO Hydromorphone HCl (Hydromorphone Hcl 0.5 Mg/0.5 Ml Syringe) 0.5 mg IVPUSH Q3H PRN; Protocol PRN Reason: Pain, Severe (Pain Scale 7-10) Last Admin: 02/02/24 02:41 Dose: 0.5 mg Documented By: SARAI Piperacillin Sod/Tazobactam (Sod 3.375 gm/ Sodium Chloride) 50 mls @ 100 mls/hr IV Q6H [facility] Last Infusion: 02/02/24 04:07 Dose: Infused Documented By: SARAI Doxycycline Hyclate 100 mg/ (Sodium Chloride) 250 mls @ 166.67 mls/hr IV Q12H [facility] Last Infusion: 02/01/24 22:20 Dose: Infused Documented By: SARAI Magnesium Hydroxide (Milk Of Magnesia 30 Ml Oral.Susp) 30 ml PO DAILY PRN PRN Reason: Constipation Melatonin (Melatonin 3 Mg Tablet) 6 mg PO BEDTIME PRN PRN Reason: Insomnia Last Admin: 01/30/24 21:43 Dose: 6 mg Documented By: ROSENDO Ondansetron HCl (Ondansetron Hcl 4 Mg/2 Ml Vial) 4 mg IVPUSH QID PRN PRN Reason: Nausea Oxycodone HCl (Oxycodone Hcl Immed Release 5 Mg Tablet) 5 mg PO Q6H PRN PRN Reason: Pain, Moderate(Pain Scale 4-6) Last Admin: 01/29/24 22:51 Dose: 5 mg Documented By: ROSENDO Sodium Chloride (0.9 % Sodium Chloride Flush 3 Ml Syringe) 3 ml IVFLUSH QSHIFT [facility] Last Admin: 02/01/24 22:20 Dose: 3 ml Documented By: SARAI Triamterene/Hydrochlorothiazide (Triamterene/Hctz 37.5/25 Tablet) 1 tab PO DAILY [facility]; Protocol Last Admin: 02/01/24 08:49 Dose: 1 tab Documented By: WOODY <Shalini Juarez PA-C - Last Filed: 02/02/24 07:46> Labs CBC & Chem 7: 02/01/24 08:37 02/01/24 08:37 <Shalini Juarez PA-C - Last Filed: 02/02/24 07:46> Labs: Laboratory Results - last 24 hr 02/01/24 08:37 MCV 86.1 MCH 30.8 MCHC 35.8 RDW 14.7 Plt Count 431 H MPV 10.0 Absolute Nucleated RBC 0.000 Nucleated RBC % (auto) 0.0 Anion Gap 11 L Estim Creat Clear Calc 88.0 Estimated GFR > 60 Random Glucose 104 Calcium 8.8 <Shalini Juarez PA-C - Last Filed: 02/02/24 07:46> Microbiology Microbiology Results: Microbiology 01/27/24 07:08 Blood Culture - Final Blood - Venous No growth after 5 days. 01/27/24 07:08 Blood Culture - Final Blood - Venous No growth after 5 days. <Shalini Juarez PA-C - Last Filed: 02/02/24 07:46> Procedures Date of Service Date of Service: 02/02/24 <Shalini Juarez PA-C - Last Filed: 02/02/24 07:46> 02/02/24 <Gentry Pham MD - Last Filed: 02/02/24 08:25> Progress Note: A&P Assessment and plan (1) S/P laparoscopic appendectomy: Status: Acute <Shalini Juarez PA-C - Last Filed: 02/02/24 07:46> (2) Respiratory failure with hypoxia: Status: Acute <Shalini Juarez PA-C - Last Filed: 02/02/24 07:46> (3) Ruptured appendicitis: Status: Acute <Shalini Juarez PA-C - Last Filed: 02/02/24 07:46> Assessment and Plan: POD #6 s/p lap appy for perforated appendicitis. WBC remains elevated. O2 requirements decreasing. Now on IV zosyn, doxy for PNA. Given perforated appendicitis, will obtain CT scan IV contrast to r/o any abscess. Patient comfortable with plan. Further plan dependent on imaging. <Shalini Juarez PA-C - Last Filed: 02/02/24 07:46> POD #6 s/p lap appy for perforated appendicitis. WBC remains elevated. O2 requirements decreasing. Now on IV zosyn, doxy for PNA. Given perforated appendicitis, will obtain CT scan IV contrast to r/o any abscess. Patient comfortable with plan. Further plan dependent on imaging. Overall the patient is improving with decreased O2 requirements, tolerating regular diet and having bowel movements. Agree with the above assessment: Elevated WBC is concerning for possible abdominal abscess post perforated appendicitis. Discussed with the patient need for repeat CT abdomen and pelvis. He expressed understanding and agrees with the plan. Further management based on CT findings. <Gentry Pham MD - Last Filed: 02/02/24 08:25> Time Spent With Patient Time: Total time managing care of this patient today ____ minutes. <Shalini Juarez PA-C - Last Filed: 02/02/24 07:46> Quality Stroke Does the patient have a stroke diagnosis?: No <Shalini Juarez PA-C - Last Filed: 02/02/24 07:46> VTE Prior VTE?: No <Shalini Juarez PA-C - Last Filed: 02/02/24 07:46> VTE Risk Level:: Surgical - moderate <Shalini Juarez PA-C - Last Filed: 02/02/24 07:46> VTE Device Contraindication: N/A - Device Ordered <Shalini Juarez PA-C - Last Filed: 02/02/24 07:46> VTE Drug Contraindication: N/A - Med Ordered <Shalini Juarez PA-C - Last Filed: 02/02/24 07:46>
[2024-02-02] MEDS: Doxycycline Hyclate 100 MG in 0.9 % Sodium Chloride 250 ML 166.67 MG IV ×2 (08:21→19:52)
[2024-02-02] MEDS: 0.9 % Sodium Chloride Flush 3 ML SYRINGE IVFLUSH ×3 (08:22→19:52)
[2024-02-02] MEDS: Triamterene/HCTZ 37.5/25 TABLET 1 TAB PO (09:48)
[2024-02-02] MEDS: Docusate Sodium 100 MG CAPSULE PO ×2 (09:48→19:52)
[2024-02-02] MEDS: cilostazoL 100 MG TABLET PO (09:48)
[2024-02-02] MEDS: Midazolam HCl/PF 2 MG/2 ML VIAL 1 MG IVPUSH ×2 (13:37→13:54)
[2024-02-02] MEDS: fentaNYL citrate/PF 100 MCG/2 ML VIAL 50 MCG IVPUSH ×2 (13:39→13:55)
[2024-02-02] MEDS: Lidocaine HCl 1 % MPF 30 ML VIAL 10 ML SUBCUT (14:14)
--- NOTE | 2024-02-02 14:18 | PM.PROC ---
Brief Operative Note Date of procedure: 02/02/24 Pre-op diagnosis: Subhepatic asbcess, perforated appendicitis s/p appendectomy Post-op diagnosis: same Procedure: CT drainage of subhepatic abscess 8 fr drain placed under CT guidance. 10 cc turbid annie fluid aspirated and sent for culture. No immediate complications.
[2024-02-02] MEDS: Enoxaparin Sodium 40 MG/0.4 ML SYRINGE SUBCUT (14:40)
--- NOTE | 2024-02-02 17:35 | P.PNIM_ITS ---
Subjective Subjective Date of Service: 02/02/24 Interval History: s/p lap appy on 01/26 for perforated appendicitis Pneumonia Review of Systems Hypoxia improvng Still has some right-sided abdominal pain Physical Exam 2 Vital Signs: Vital Signs: Last Vital Signs Temp 97.3 F 02/02/24 15:43 Pulse 95 02/02/24 15:43 Resp 18 02/02/24 15:43 BP 132/85 02/02/24 15:43 Pulse Ox 95 02/02/24 15:43 O2 Del Method Nasal Cannula 02/02/24 15:43 O2 Flow Rate 2 02/02/24 15:43 FiO2 50 01/27/24 19:52 BMI result Body Mass Index 33.1 General: AO X 3, no acute distress Resp: decrease breath sounds CVS: S1,S2,RRR GI: tender around incisions Skin: No rash Neuro: motor grossly intact Psych: appropriate affect Objective Data Active Medications Albuterol/Ipratropium (Albuterol/Iprat 2.5/0.5mg 3 Ml Ampul.Neb) 3 ml INHALE Q4H PRN PRN Reason: Wheezing Last Admin: 01/30/24 22:41 Dose: 3 ml Documented By: ZHENG Atorvastatin Calcium (Atorvastatin Calcium 80 Mg Tablet) 80 mg PO BEDTIME [facility] Last Admin: 02/01/24 20:19 Dose: 80 mg Documented By: SARAI Calcium Carbonate (Calcium Carbonate 750 Mg Tab.Chew) 750 mg PO Q4H PRN PRN Reason: Heartburn Cilostazol (Cilostazol 100 Mg Tablet) 100 mg PO DAILY [facility] Last Admin: 02/02/24 09:48 Dose: 100 mg Documented By: DONNA Docusate Sodium (Docusate Sodium 100 Mg Capsule) 100 mg PO BID [facility] Last Admin: 02/02/24 09:48 Dose: 100 mg Documented By: DONNA Enoxaparin Sodium (Enoxaparin Sodium 40 Mg/0.4 Ml Syringe) 40 mg SUBCUT Q24H [facility] Last Admin: 02/02/24 14:40 Dose: 40 mg Documented By: DONNA Guaifenesin/Codeine Phosphate (Guaifen/Codeine Sf 200/20/10ml 10 Ml Liquid) 10 ml PO Q4H PRN PRN Reason: Cough Last Admin: 01/29/24 23:09 Dose: 10 ml Documented By: ROSENDO Hydromorphone HCl (Hydromorphone Hcl 0.5 Mg/0.5 Ml Syringe) 0.5 mg IVPUSH Q3H PRN; Protocol PRN Reason: Pain, Severe (Pain Scale 7-10) Last Admin: 02/02/24 14:40 Dose: 0.5 mg Documented By: DONNA Piperacillin Sod/Tazobactam (Sod 3.375 gm/ Sodium Chloride) 50 mls @ 100 mls/hr IV Q6H [facility] Last Admin: 02/02/24 17:06 Dose: 100 mls/hr Documented By: DONNA Doxycycline Hyclate 100 mg/ (Sodium Chloride) 250 mls @ 166.67 mls/hr IV Q12H [facility] Last Infusion: 02/02/24 10:30 Dose: Infused Documented By: DONNA Magnesium Hydroxide (Milk Of Magnesia 30 Ml Oral.Susp) 30 ml PO DAILY PRN PRN Reason: Constipation Melatonin (Melatonin 3 Mg Tablet) 6 mg PO BEDTIME PRN PRN Reason: Insomnia Last Admin: 01/30/24 21:43 Dose: 6 mg Documented By: ROSENDO Ondansetron HCl (Ondansetron Hcl 4 Mg/2 Ml Vial) 4 mg IVPUSH QID PRN PRN Reason: Nausea Oxycodone HCl (Oxycodone Hcl Immed Release 5 Mg Tablet) 5 mg PO Q6H PRN PRN Reason: Pain, Moderate(Pain Scale 4-6) Last Admin: 01/29/24 22:51 Dose: 5 mg Documented By: ROSENDO Sodium Chloride (0.9 % Sodium Chloride Flush 3 Ml Syringe) 3 ml IVFLUSH QSHIFT [facility] Last Admin: 02/02/24 17:07 Dose: 3 ml Documented By: DONNA Triamterene/Hydrochlorothiazide (Triamterene/Hctz 37.5/25 Tablet) 1 tab PO DAILY [facility]; Protocol Last Admin: 02/02/24 09:48 Dose: 1 tab Documented By: DONNA Labs 02/01/24 08:37 02/01/24 08:37 Assessment and Plan (1) S/P laparoscopic appendectomy: Status: Acute (2) Respiratory failure with hypoxia: Status: Acute Plan 73 yo male with a pmhx significant for HTN, CAD, mild stage 1 COPD and PVD, who presented to the ED this morning with abd pain and nausea, found to have sepsis secondary to a perforated appendix, now s/p lap appy and having post op acute respiratory failure with hypoxia requiring high flow O2. s/p lap appy- plan per surgery ct abd as per surgery -?abcess acute respiratory failure -suspect post op atelectasis an PNA - CT chest no PE but PNA -O2 requirement is better, wean off as jarocho -continue using incentive spirometry -continue Doxy + Zosyn stage 1 COPD - no acute exacerbation - no wheezing on exam -inhalers PRN HTN- continue triamterene-hctz, monotor potassium Hypokalemia--resolved PAD/CAD- continue cilostazol, statin lovenox for dvt prophylaxis Will continue to follow for now Quality Stroke Does the patient have a stroke diagnosis?: No VTE Prior VTE?: No VTE Risk Level:: Surgical - moderate VTE Device Contraindication: N/A - Device Ordered VTE Drug Contraindication: N/A - Med Ordered
[2024-02-02] MEDS: Atorvastatin Calcium 80 MG TABLET PO (19:51)
[2024-02-02] MEDS: oxyCODONE HCl Immed Release 5 MG TABLET PO (20:12)
[2024-02-03] VITALS (7 sets, daily range): BP systolic 122–148; BP diastolic 59–88; PULSE 75–95; RESP 16–18; TEMP 36–36.7; O2SAT 90–96
[2024-02-03] MEDS: Piperacillin Sodium/Tazobactam 3.375 GM in 0.9 % Sodium Chloride 50 ML IV ×4 (02:34→21:49)
[2024-02-03] MEDS: oxyCODONE HCl Immed Release 5 MG TABLET PO ×3 (02:34→18:51)
[2024-02-03] MEDS: Triamterene/HCTZ 37.5/25 TABLET 1 TAB PO (09:25)
[2024-02-03] MEDS: cilostazoL 100 MG TABLET PO (09:25)
[2024-02-03] MEDS: 0.9 % Sodium Chloride Flush 3 ML SYRINGE IVFLUSH ×3 (09:26→23:49)
--- NOTE | 2024-02-03 09:30 | MHC.CM.PN ---
EMR REVIEWED, PT S/P LAP APPY D/T PERFORATED APPENDICITIS, NOW WITH ABSCESS AND S/P CT GUIDED DRAINAGE, REMAINS ON DUAL IV ABX AND IV NARCOTIC PAIN MEDS, NO PLAN FOR DC AT THIS TIME, CM WILL CONT TO FOLLOW DC NEEDS.
[2024-02-03] MEDS: Doxycycline Hyclate 100 MG in 0.9 % Sodium Chloride 250 ML 166.67 MG IV (09:59)
--- NOTE | 2024-02-03 10:40 | PM.PNGS ---
Subjective Subjective Date of Service: 02/03/24 Interval history: Feeling improved. Eating breakfast in recliner this morning. Reports mild discomfort at drain site. Denies SOB. Using incentive spirometer. Physical Exam Vital Signs: Vital Signs: Last Vital Signs Temp 97.7 F 02/03/24 07:59 Pulse 80 02/03/24 07:59 Resp 18 02/03/24 07:59 BP 134/75 02/03/24 07:59 Pulse Ox 90 L 02/03/24 09:51 O2 Del Method Room Air 02/03/24 09:51 O2 Flow Rate 2 02/03/24 07:59 FiO2 50 01/27/24 19:52 BMI result Body Mass Index 33.1 Const: General: comfortable, no acute distress and alert Orientation/consciousness: patient oriented x3 Resp: Effort & Inspection: normal respiratory effort, able to speak in complete sentences, not tachypneic and no use of accessory muscles GI: Other: drain bulb with serosanguineous appearing fluid, nonpurulent Palpation (GI): Soft to palpation, Tenderness to palpation present (GI) (mild tenderness at RLQ/drain site ) and no guarding Skin: General skin exam: no rashes or lesions noted Neuro: General: patient oriented x3 and moves all extremities Objective Data Active Medications Albuterol/Ipratropium (Albuterol/Iprat 2.5/0.5mg 3 Ml Ampul.Neb) 3 ml INHALE Q4H PRN PRN Reason: Wheezing Last Admin: 01/30/24 22:41 Dose: 3 ml Documented By: ZHENG Atorvastatin Calcium (Atorvastatin Calcium 80 Mg Tablet) 80 mg PO BEDTIME [facility] Last Admin: 02/02/24 19:51 Dose: 80 mg Documented By: ROSENDO Calcium Carbonate (Calcium Carbonate 750 Mg Tab.Chew) 750 mg PO Q4H PRN PRN Reason: Heartburn Cilostazol (Cilostazol 100 Mg Tablet) 100 mg PO DAILY [facility] Last Admin: 02/03/24 09:25 Dose: 100 mg Documented By: RUFINA Docusate Sodium (Docusate Sodium 100 Mg Capsule) 100 mg PO BID [facility] Last Admin: 02/03/24 09:25 Dose: Not Given Documented By: RUFINA Non-Admin Reason: Patient Refused Enoxaparin Sodium (Enoxaparin Sodium 40 Mg/0.4 Ml Syringe) 40 mg SUBCUT Q24H [facility] Last Admin: 02/02/24 14:40 Dose: 40 mg Documented By: DONNA Guaifenesin/Codeine Phosphate (Guaifen/Codeine Sf 200/20/10ml 10 Ml Liquid) 10 ml PO Q4H PRN PRN Reason: Cough Last Admin: 01/29/24 23:09 Dose: 10 ml Documented By: ROSENDO Hydromorphone HCl (Hydromorphone Hcl 0.5 Mg/0.5 Ml Syringe) 0.5 mg IVPUSH Q3H PRN; Protocol PRN Reason: Pain, Severe (Pain Scale 7-10) Last Admin: 02/02/24 18:01 Dose: 0.5 mg Documented By: DONNA Piperacillin Sod/Tazobactam (Sod 3.375 gm/ Sodium Chloride) 50 mls @ 100 mls/hr IV Q6H [facility] Last Admin: 02/03/24 09:59 Dose: 100 mls/hr Documented By: KELSY Doxycycline Hyclate 100 mg/ (Sodium Chloride) 250 mls @ 166.67 mls/hr IV Q12H [facility] Last Infusion: 02/03/24 10:00 Dose: 0 mls/hr Documented By: KELSY Magnesium Hydroxide (Milk Of Magnesia 30 Ml Oral.Susp) 30 ml PO DAILY PRN PRN Reason: Constipation Melatonin (Melatonin 3 Mg Tablet) 6 mg PO BEDTIME PRN PRN Reason: Insomnia Last Admin: 01/30/24 21:43 Dose: 6 mg Documented By: ROSENDO Ondansetron HCl (Ondansetron Hcl 4 Mg/2 Ml Vial) 4 mg IVPUSH QID PRN PRN Reason: Nausea Oxycodone HCl (Oxycodone Hcl Immed Release 5 Mg Tablet) 5 mg PO Q6H PRN PRN Reason: Pain, Moderate(Pain Scale 4-6) Last Admin: 02/03/24 02:34 Dose: 5 mg Documented By: ROSENDO Sodium Chloride (0.9 % Sodium Chloride Flush 3 Ml Syringe) 3 ml IVFLUSH QSHIFT [facility] Last Admin: 02/03/24 09:26 Dose: 3 ml Documented By: RUFINA Triamterene/Hydrochlorothiazide (Triamterene/Hctz 37.5/25 Tablet) 1 tab PO DAILY [facility]; Protocol Last Admin: 02/03/24 09:25 Dose: 1 tab Documented By: RUFINA Labs 02/01/24 08:37 02/01/24 08:37 Microbiology Microbiology Results: Microbiology 02/02/24 14:00 Gram Stain - Final Abscess Appendiceal Routine Culture - Preliminary Culture in progress. Anaerobic Culture - Preliminary Culture in progress. Procedures Date of Service Date of Service: 02/03/24 Progress Note: A&P Assessment and plan (1) Respiratory failure with hypoxia: Status: Acute (2) S/P laparoscopic appendectomy: Status: Acute Plan Had persistent leukocytosis s/p lap appy for perforated appendicitis. F/u CT scan yesterday showed subhepatic abscess and he subsequently underwent CT drainage of this yesterday with 10 cc turbid annie fluid aspirated. Scant drainage overnight. Repeat WBC pending this am. Cont diet as tolerated, wean O2, increase activity and IS use encouraged. Patient comfortable with plan but getting frustrated at length of stay. Cont IV abx. Time Spent With Patient Time: Total time managing care of this patient today ____ minutes. Quality Stroke Does the patient have a stroke diagnosis?: No VTE Prior VTE?: No VTE Risk Level:: Surgical - moderate VTE Device Contraindication: N/A - Device Ordered VTE Drug Contraindication: N/A - Med Ordered
[2024-02-03 11:18] LABS: Hematocrit 37.8 % (42.0-52.0); Hemoglobin 13.4 g/dl (14.0-18.0); Mean Corpuscular HGB Conc 35.4 g/dl (31.0-36.0); Mean Corpuscular Hemoglobin 31.2 pg (27.0-33.0); Mean Corpuscular Volume 88.1 fL (80.0-98.0); Mean Platelet Volume 9.9 fL (9.4-12.4); Platelet Count 489 X10*3/uL (160-400); Red Blood Count 4.29 X10*6/uL (4.60-5.80); Red Cell Distribution Width 15.2 % (11.0-16.0); White Blood Count 25.5 X10*3/uL (4.8-10.8)
[2024-02-03] MEDS: Enoxaparin Sodium 40 MG/0.4 ML SYRINGE SUBCUT (11:55)
[2024-02-03 12:03] LABS: Atypical Lymphs Percent Manual 4 % (0-6); Band Neutrophils Percent 1 % (3-5); Eosinophils Absolute Manual 0.8 X10*3/uL (0.0-0.4); Eosinophils Percent Manual 3 % (0-4); Lymphocytes Absolute Manual 2.6 X10*3/uL (1.2-4.9); Lymphocytes Percent Manual 10 % (20-40); Macrocytosis 1+ (5-14) /OIF; Microcytosis 2+ (15-30) /OIF; Monocytes Absolute Manual 1.5 X10*3/uL (0.1-1.2); Monocytes Percent Manual 6 % (2-11); Neutrophils Absolute Manual 19.1 X10*3/uL (2.0-8.3); Neutrophils Percent Manual 74 % (45-73); Platelet Estimate SLIGHTLY INCREASED (NORMAL); Platelet Morphology Comment NORMAL; Promyelocytes Absolute 0.5 X10*3/uL; Promyelocytes Percent 2 %; RBC Morphology NOTED
[2024-02-03] MEDS: HYDROmorphone HCl 0.5 MG/0.5 ML SYRINGE IVPUSH (15:56)
--- NOTE | 2024-02-03 16:01 | HO.PM.IMPN ---
Subjective Subjective Date of Service: 02/03/24 Interval History: s/p lap appy on 01/26 for perforated appendicitis Pneumonia Review of Systems Hypoxia improving Still has some right-sided abdominal pain Physical Exam Vital Signs: Vital Signs: Last Vital Signs Temp 97.5 F 02/03/24 15:39 Pulse 95 02/03/24 15:39 Resp 18 02/03/24 15:39 BP 122/88 02/03/24 15:39 Pulse Ox 94 02/03/24 15:39 O2 Del Method Room Air 02/03/24 15:39 O2 Flow Rate 2 02/03/24 11:32 FiO2 50 01/27/24 19:52 BMI result Body Mass Index 33.1 General: AO X 3, no acute distress Resp: decrease breath sounds CVS: S1,S2,RRR GI: tender around incisions Skin: No rash Neuro: motor grossly intact Psych: appropriate affect Objective Data Active Medications Albuterol/Ipratropium (Albuterol/Iprat 2.5/0.5mg 3 Ml Ampul.Neb) 3 ml INHALE Q4H PRN PRN Reason: Wheezing Last Admin: 01/30/24 22:41 Dose: 3 ml Documented By: ZHENG Atorvastatin Calcium (Atorvastatin Calcium 80 Mg Tablet) 80 mg PO BEDTIME [facility] Last Admin: 02/02/24 19:51 Dose: 80 mg Documented By: ROSENDO Calcium Carbonate (Calcium Carbonate 750 Mg Tab.Chew) 750 mg PO Q4H PRN PRN Reason: Heartburn Cilostazol (Cilostazol 100 Mg Tablet) 100 mg PO DAILY [facility] Last Admin: 02/03/24 09:25 Dose: 100 mg Documented By: RUFINA Docusate Sodium (Docusate Sodium 100 Mg Capsule) 100 mg PO BID [facility] Last Admin: 02/03/24 09:25 Dose: Not Given Documented By: RUFINA Non-Admin Reason: Patient Refused Enoxaparin Sodium (Enoxaparin Sodium 40 Mg/0.4 Ml Syringe) 40 mg SUBCUT Q24H [facility] Last Admin: 02/03/24 11:55 Dose: 40 mg Documented By: KELSY Guaifenesin/Codeine Phosphate (Guaifen/Codeine Sf 200/20/10ml 10 Ml Liquid) 10 ml PO Q4H PRN PRN Reason: Cough Last Admin: 01/29/24 23:09 Dose: 10 ml Documented By: ROSENDO Hydromorphone HCl (Hydromorphone Hcl 0.5 Mg/0.5 Ml Syringe) 0.5 mg IVPUSH Q3H PRN; Protocol PRN Reason: Pain, Severe (Pain Scale 7-10) Last Admin: 02/03/24 15:56 Dose: 0.5 mg Documented By: SYDNIE Piperacillin Sod/Tazobactam (Sod 3.375 gm/ Sodium Chloride) 50 mls @ 100 mls/hr IV Q6H [facility] Last Admin: 02/03/24 15:57 Dose: 100 mls/hr Documented By: SYDNIE Doxycycline Hyclate 100 mg/ (Sodium Chloride) 250 mls @ 166.67 mls/hr IV Q12H [facility] Last Infusion: 02/03/24 13:38 Dose: Infused Documented By: RUFINA Magnesium Hydroxide (Milk Of Magnesia 30 Ml Oral.Susp) 30 ml PO DAILY PRN PRN Reason: Constipation Melatonin (Melatonin 3 Mg Tablet) 6 mg PO BEDTIME PRN PRN Reason: Insomnia Last Admin: 01/30/24 21:43 Dose: 6 mg Documented By: ROSENDO Ondansetron HCl (Ondansetron Hcl 4 Mg/2 Ml Vial) 4 mg IVPUSH QID PRN PRN Reason: Nausea Oxycodone HCl (Oxycodone Hcl Immed Release 5 Mg Tablet) 5 mg PO Q6H PRN PRN Reason: Pain, Moderate(Pain Scale 4-6) Last Admin: 02/03/24 12:01 Dose: 5 mg Documented By: KELSY Sodium Chloride (0.9 % Sodium Chloride Flush 3 Ml Syringe) 3 ml IVFLUSH QSHIFT [facility] Last Admin: 02/03/24 09:26 Dose: 3 ml Documented By: RUFINA Triamterene/Hydrochlorothiazide (Triamterene/Hctz 37.5/25 Tablet) 1 tab PO DAILY [facility]; Protocol Last Admin: 02/03/24 09:25 Dose: 1 tab Documented By: RUFINA Labs 02/03/24 10:51 02/01/24 08:37 Labs: Laboratory Results - last 24 hr 02/03/24 10:51 MCV 88.1 MCH 31.2 MCHC 35.4 RDW 15.2 Plt Count 489 H MPV 9.9 Immature Gran % (Auto) Cancelled Neut % (Auto) Cancelled Lymph % (Auto) Cancelled [place] % (Auto) Cancelled Eos % (Auto) Cancelled Baso % (Auto) Cancelled Lymph # (Auto) Cancelled [place] # (Auto) Cancelled Eos # (Auto) Cancelled Baso # (Auto) Cancelled Abs Immat Gran (auto) Cancelled Absolute Neuts (auto) Cancelled Absolute Nucleated RBC 0.000 Nucleated RBC % (auto) 0.0 Neutrophils % (Manual) 74 H Band Neutrophils % 1 L Lymphocytes % (Manual) 10 L Atypical Lymphs % (Man) 4 Monocytes % (Manual) 6 Eosinophils % (Manual) 3 Promyelocytes % 2 Abs Neuts (Manual) 19.1 H Lymphocytes # (Manual) 2.6 Atyp Lymphs # (Manual) 1.0 Monocytes # (Manual) 1.5 H Eosinophils # (Manual) 0.8 H Promyelocytes # 0.5 Platelet Estimate SLIGHTLY INCREASED Plt Morphology Comment NORMAL RBC Morphology NOTED Microcytosis 2+ (15-30) Macrocytosis 1+ (5-14) Microbiology Microbiology Results: Microbiology 02/02/24 14:00 Gram Stain - Final Abscess Appendiceal Routine Culture - Preliminary Culture in progress. Anaerobic Culture - Preliminary Culture in progress. Assessment and Plan (1) S/P laparoscopic appendectomy: Status: Acute (2) Respiratory failure with hypoxia: Status: Acute Plan 73 yo male with a pmhx significant for HTN, CAD, mild stage 1 COPD and PVD, who presented to the ED this morning with abd pain and nausea, found to have sepsis secondary to a perforated appendix, now s/p lap appy and having post op acute respiratory failure with hypoxia requiring high flow O2. s/p lap appy- plan per surgery has leucocytosis trending up tachycardia due to pain /anxiety -not due to sepsis , no fevers ct abd as per surgery -possible subhepatic abcess s/p drainage on 02/02/24. continue Doxy + Zosyn acute respiratory failure -suspect post op atelectasis an PNA - CT chest no PE but PNA -O2 requirement is better, wean off as jarocho -continue using incentive spirometry -continue Doxy + Zosyn stage 1 COPD - no acute exacerbation - no wheezing on exam -inhalers PRN HTN- continue triamterene-hctz, monotor potassium Hypokalemia--resolved PAD/CAD- continue cilostazol, statin lovenox for dvt prophylaxis Will continue to follow for now Quality Stroke Does the patient have a stroke diagnosis?: No VTE Prior VTE?: No VTE Risk Level:: Surgical - moderate VTE Device Contraindication: N/A - Device Ordered VTE Drug Contraindication: N/A - Med Ordered
[2024-02-03] MEDS: Doxycycline Hyclate 100 MG in 0.9 % Sodium Chloride 250 ML 250 MG IV (18:51)
[2024-02-03] MEDS: Docusate Sodium 100 MG CAPSULE PO (21:49)
[2024-02-03] MEDS: Atorvastatin Calcium 80 MG TABLET PO (21:50)
[2024-02-04 03:21] VITALS: BP 121/72; PULSE 80; RESP 18; TEMP 36.3; O2SAT 95
[2024-02-04] MEDS: Piperacillin Sodium/Tazobactam 3.375 GM in 0.9 % Sodium Chloride 50 ML IV ×4 (04:51→22:29)
[2024-02-04 08:00] VITALS: BP 134/73; PULSE 91; RESP 20; TEMP 36.3; O2SAT 91
[2024-02-04] MEDS: Doxycycline Hyclate 100 MG in 0.9 % Sodium Chloride 250 ML 250 MG IV (08:17)
[2024-02-04] MEDS: Triamterene/HCTZ 37.5/25 TABLET 1 TAB PO (08:18)
[2024-02-04] MEDS: 0.9 % Sodium Chloride Flush 3 ML SYRINGE IVFLUSH ×2 (08:18→15:47)
[2024-02-04] MEDS: cilostazoL 100 MG TABLET PO (08:18)
[2024-02-04 08:46] LABS: Hematocrit 36.2 % (42.0-52.0); Hemoglobin 12.8 g/dl (14.0-18.0); Mean Corpuscular HGB Conc 35.4 g/dl (31.0-36.0); Mean Corpuscular Hemoglobin 30.7 pg (27.0-33.0); Mean Corpuscular Volume 86.8 fL (80.0-98.0); Mean Platelet Volume 9.6 fL (9.4-12.4); NRBC Pct Auto 0.1 /100WBC (0.0-0.2); Platelet Count 535 X10*3/uL (160-400); Red Blood Count 4.17 X10*6/uL (4.60-5.80); Red Cell Distribution Width 15.3 % (11.0-16.0); White Blood Count 20.1 X10*3/uL (4.8-10.8)
[2024-02-04 11:22] VITALS: BP 112/68; PULSE 91; RESP 18; TEMP 36.9; O2SAT 94
--- NOTE | 2024-02-04 11:37 | HO.PM.IMPN ---
Subjective Subjective Date of Service: 02/04/24 Interval History: s/p lap appy on 01/26 for perforated appendicitis Pneumonia Review of Systems Hypoxia improved. abd pain improving still draining Physical Exam Vital Signs: Vital Signs: Last Vital Signs Temp 98.4 F 02/04/24 11:22 Pulse 91 02/04/24 11:22 Resp 18 02/04/24 11:22 BP 112/68 02/04/24 11:22 Pulse Ox 94 02/04/24 11:22 O2 Del Method Room Air 02/04/24 11:22 O2 Flow Rate 2 02/03/24 23:16 FiO2 50 01/27/24 19:52 BMI result Body Mass Index 33.1 General: AO X 3, no acute distress Resp: decrease breath sounds CVS: S1,S2,RRR GI: tender around incisions, has drain on right side of abd. Skin: No rash Neuro: motor grossly intact Psych: appropriate affec Objective Data Active Medications Albuterol/Ipratropium (Albuterol/Iprat 2.5/0.5mg 3 Ml Ampul.Neb) 3 ml INHALE Q4H PRN PRN Reason: Wheezing Last Admin: 01/30/24 22:41 Dose: 3 ml Documented By: ZHENG Atorvastatin Calcium (Atorvastatin Calcium 80 Mg Tablet) 80 mg PO BEDTIME [facility] Last Admin: 02/03/24 21:50 Dose: 80 mg Documented By: SYDNIE Calcium Carbonate (Calcium Carbonate 750 Mg Tab.Chew) 750 mg PO Q4H PRN PRN Reason: Heartburn Cilostazol (Cilostazol 100 Mg Tablet) 100 mg PO DAILY [facility] Last Admin: 02/04/24 08:18 Dose: 100 mg Documented By: JCARLOS Docusate Sodium (Docusate Sodium 100 Mg Capsule) 100 mg PO BID [facility] Last Admin: 02/04/24 08:32 Dose: Not Given Documented By: JCARLOS Non-Admin Reason: Patient Refused Enoxaparin Sodium (Enoxaparin Sodium 40 Mg/0.4 Ml Syringe) 40 mg SUBCUT Q24H [facility] Last Admin: 02/03/24 11:55 Dose: 40 mg Documented By: KELSY Guaifenesin/Codeine Phosphate (Guaifen/Codeine Sf 200/20/10ml 10 Ml Liquid) 10 ml PO Q4H PRN PRN Reason: Cough Last Admin: 01/29/24 23:09 Dose: 10 ml Documented By: ROSENDO Hydromorphone HCl (Hydromorphone Hcl 0.5 Mg/0.5 Ml Syringe) 0.5 mg IVPUSH Q3H PRN; Protocol PRN Reason: Pain, Severe (Pain Scale 7-10) Last Admin: 02/03/24 15:56 Dose: 0.5 mg Documented By: SYDNIE Piperacillin Sod/Tazobactam (Sod 3.375 gm/ Sodium Chloride) 50 mls @ 100 mls/hr IV Q6H [facility] Last Infusion: 02/04/24 10:52 Dose: Infused Documented By: JCARLOS Doxycycline Hyclate 100 mg/ (Sodium Chloride) 250 mls @ 166.67 mls/hr IV Q12H [facility] Last Infusion: 02/04/24 09:47 Dose: Infused Documented By: JCARLOS Magnesium Hydroxide (Milk Of Magnesia 30 Ml Oral.Susp) 30 ml PO DAILY PRN PRN Reason: Constipation Melatonin (Melatonin 3 Mg Tablet) 6 mg PO BEDTIME PRN PRN Reason: Insomnia Last Admin: 01/30/24 21:43 Dose: 6 mg Documented By: ROSENDO Ondansetron HCl (Ondansetron Hcl 4 Mg/2 Ml Vial) 4 mg IVPUSH QID PRN PRN Reason: Nausea Oxycodone HCl (Oxycodone Hcl Immed Release 5 Mg Tablet) 5 mg PO Q6H PRN PRN Reason: Pain, Moderate(Pain Scale 4-6) Last Admin: 02/03/24 18:51 Dose: 5 mg Documented By: SYDNIE Sodium Chloride (0.9 % Sodium Chloride Flush 3 Ml Syringe) 3 ml IVFLUSH QSHIFT [facility] Last Admin: 02/04/24 08:18 Dose: 3 ml Documented By: JCARLOS Triamterene/Hydrochlorothiazide (Triamterene/Hctz 37.5/25 Tablet) 1 tab PO DAILY [facility]; Protocol Last Admin: 02/04/24 08:18 Dose: 1 tab Documented By: JCARLOS Labs 02/04/24 08:18 02/01/24 08:37 Labs: Laboratory Results - last 24 hr 02/03/24 02/04/24 10:51 08:18 MCV 86.8 MCH 30.7 MCHC 35.4 RDW 15.3 Plt Count 535 H MPV 9.6 Absolute Nucleated RBC 0.020 H Nucleated RBC % (auto) 0.1 Neutrophils % (Manual) 74 H Band Neutrophils % 1 L Lymphocytes % (Manual) 10 L Atypical Lymphs % (Man) 4 Monocytes % (Manual) 6 Eosinophils % (Manual) 3 Promyelocytes % 2 Abs Neuts (Manual) 19.1 H Lymphocytes # (Manual) 2.6 Atyp Lymphs # (Manual) 1.0 Monocytes # (Manual) 1.5 H Eosinophils # (Manual) 0.8 H Promyelocytes # 0.5 Platelet Estimate SLIGHTLY INCREASED Plt Morphology Comment NORMAL RBC Morphology NOTED Microcytosis 2+ (15-30) Macrocytosis 1+ (5-14) Microbiology Microbiology Results: Microbiology 02/02/24 14:00 Gram Stain - Final Abscess Appendiceal Routine Culture - Preliminary Gram negative deb Bacillus species Anaerobic Culture - Preliminary Culture in progress. Assessment and Plan (1) S/P laparoscopic appendectomy: Status: Acute (2) Respiratory failure with hypoxia: Status: Acute Plan 73 yo male with a pmhx significant for HTN, CAD, mild stage 1 COPD and PVD, who presented to the ED this morning with abd pain and nausea, found to have sepsis secondary to a perforated appendix, now s/p lap appy and having post op acute respiratory failure with hypoxia requiring high flow O2. s/p lap appy- plan per surgery has leucocytosis improving tachycardia due to pain /anxiety -not due to sepsis , no fevers ct abd as per surgery -possible subhepatic abcess s/p drainage on 02/02/24. continue Doxy + Zosyn acute respiratory failure -suspect post op atelectasis an PNA - CT chest no PE but PNA -O2 requirement is better, wean off as jarocho -continue using incentive spirometry -continue Doxy + Zosyn stage 1 COPD - no acute exacerbation - no wheezing on exam -inhalers PRN HTN- continue triamterene-hctz, monotor potassium Hypokalemia--resolved PAD/CAD- continue cilostazol, statin lovenox for dvt prophylaxis Will continue to follow for now Quality Stroke Does the patient have a stroke diagnosis?: No VTE Prior VTE?: No VTE Risk Level:: Surgical - moderate VTE Device Contraindication: N/A - Device Ordered VTE Drug Contraindication: N/A - Med Ordered
[2024-02-04] MEDS: Enoxaparin Sodium 40 MG/0.4 ML SYRINGE SUBCUT (13:37)
--- NOTE | 2024-02-04 15:03 | PM.PNGS ---
Subjective Subjective Date of Service: 02/05/24 Interval history: pt with improved abdo pain - drain in place with some fluid drainage eating ok Physical Exam Vital Signs: Vital Signs: Last Vital Signs Temp 98.4 F 02/04/24 11:22 Pulse 91 02/04/24 11:22 Resp 18 02/04/24 11:22 BP 112/68 02/04/24 11:22 Pulse Ox 94 02/04/24 11:22 O2 Del Method Room Air 02/04/24 11:22 O2 Flow Rate 2 02/03/24 23:16 FiO2 50 01/27/24 19:52 BMI result Body Mass Index 33.1 Const: General: cooperative, healthy appearing and comfortable Resp: Effort & Inspection: normal respiratory effort Auscultation: clear to auscultation bilaterally Cardio: Rate: regular rate Rhythm: regular rhythm GI: Other: abdomen is soft nontender nondistended drain in place Objective Data Active Medications Albuterol/Ipratropium (Albuterol/Iprat 2.5/0.5mg 3 Ml Ampul.Neb) 3 ml INHALE Q4H PRN PRN Reason: Wheezing Last Admin: 01/30/24 22:41 Dose: 3 ml Documented By: ZHENG Atorvastatin Calcium (Atorvastatin Calcium 80 Mg Tablet) 80 mg PO BEDTIME [facility] Last Admin: 02/03/24 21:50 Dose: 80 mg Documented By: SYDNIE Calcium Carbonate (Calcium Carbonate 750 Mg Tab.Chew) 750 mg PO Q4H PRN PRN Reason: Heartburn Cilostazol (Cilostazol 100 Mg Tablet) 100 mg PO DAILY [facility] Last Admin: 02/04/24 08:18 Dose: 100 mg Documented By: JCARLOS Docusate Sodium (Docusate Sodium 100 Mg Capsule) 100 mg PO BID [facility] Last Admin: 02/04/24 08:32 Dose: Not Given Documented By: JCARLOS Non-Admin Reason: Patient Refused Enoxaparin Sodium (Enoxaparin Sodium 40 Mg/0.4 Ml Syringe) 40 mg SUBCUT Q24H [facility] Last Admin: 02/04/24 13:37 Dose: 40 mg Documented By: JCARLOS Guaifenesin/Codeine Phosphate (Guaifen/Codeine Sf 200/20/10ml 10 Ml Liquid) 10 ml PO Q4H PRN PRN Reason: Cough Last Admin: 01/29/24 23:09 Dose: 10 ml Documented By: ROSENDO Hydromorphone HCl (Hydromorphone Hcl 0.5 Mg/0.5 Ml Syringe) 0.5 mg IVPUSH Q3H PRN; Protocol PRN Reason: Pain, Severe (Pain Scale 7-10) Last Admin: 02/03/24 15:56 Dose: 0.5 mg Documented By: SYDNIE Piperacillin Sod/Tazobactam (Sod 3.375 gm/ Sodium Chloride) 50 mls @ 100 mls/hr IV Q6H [facility] Last Infusion: 02/04/24 10:52 Dose: Infused Documented By: JCARLOS Doxycycline Hyclate 100 mg/ (Sodium Chloride) 250 mls @ 166.67 mls/hr IV Q12H [facility] Last Infusion: 02/04/24 09:47 Dose: Infused Documented By: JCARLOS Magnesium Hydroxide (Milk Of Magnesia 30 Ml Oral.Susp) 30 ml PO DAILY PRN PRN Reason: Constipation Melatonin (Melatonin 3 Mg Tablet) 6 mg PO BEDTIME PRN PRN Reason: Insomnia Last Admin: 01/30/24 21:43 Dose: 6 mg Documented By: ROSENDO Ondansetron HCl (Ondansetron Hcl 4 Mg/2 Ml Vial) 4 mg IVPUSH QID PRN PRN Reason: Nausea Oxycodone HCl (Oxycodone Hcl Immed Release 5 Mg Tablet) 5 mg PO Q6H PRN PRN Reason: Pain, Moderate(Pain Scale 4-6) Last Admin: 02/03/24 18:51 Dose: 5 mg Documented By: SYDNIE Sodium Chloride (0.9 % Sodium Chloride Flush 3 Ml Syringe) [facility] Last Admin: 02/04/24 08:18 Dose: 3 ml Documented By: JCARLOS Triamterene/Hydrochlorothiazide (Triamterene/Hctz 37.5/25 Tablet) 1 tab PO DAILY [facility]; Protocol Last Admin: 02/04/24 08:18 Dose: 1 tab Documented By: JCARLOS Labs 02/04/24 08:18 02/01/24 08:37 Labs: Laboratory Results - last 24 hr 02/04/24 08:18 MCV 86.8 MCH 30.7 MCHC 35.4 RDW 15.3 Plt Count 535 H MPV 9.6 Absolute Nucleated RBC 0.020 H Nucleated RBC % (auto) 0.1 Microbiology Microbiology Results: Microbiology 02/02/24 14:00 Gram Stain - Final Abscess Appendiceal Routine Culture - Preliminary Gram negative deb Bacillus species Anaerobic Culture - Preliminary Culture in progress. Procedures Date of Service Date of Service: 02/05/24 Progress Note: A&P Assessment and plan (1) S/P laparoscopic appendectomy: Status: Acute Assessment and Plan: 73 year old male with appendicitis, s/p lap appy and then developed an abscess from perforated appy - now s/p ivr drainage and doing ok - clinically looks goo and drain working but wbc still elevated - cont wtih iv antibx and drainage, ambulation etc Time Spent With Patient Time: Total time managing care of this patient today ____ minutes. Quality Stroke Does the patient have a stroke diagnosis?: No VTE Prior VTE?: No VTE Risk Level:: Surgical - moderate VTE Device Contraindication: N/A - Device Ordered VTE Drug Contraindication: N/A - Med Ordered
[2024-02-04 15:25] VITALS: BP 137/76; PULSE 88; RESP 16; TEMP 36.6; O2SAT 93
[2024-02-04] MEDS: Doxycycline Hyclate 100 MG in 0.9 % Sodium Chloride 250 ML 166.67 MG IV (19:59)
[2024-02-04 20:00] VITALS: BP 122/69; PULSE 83; RESP 18; TEMP 36.7; O2SAT 93
[2024-02-04] MEDS: Atorvastatin Calcium 80 MG TABLET PO (20:09)
[2024-02-04] MEDS: oxyCODONE HCl Immed Release 5 MG TABLET PO (20:09)
[2024-02-04 23:54] VITALS: BP 136/77; PULSE 84; RESP 16; TEMP 36.4; O2SAT 90
[2024-02-05] MEDS: HYDROmorphone HCl 0.5 MG/0.5 ML SYRINGE IVPUSH (00:06)
[2024-02-05] MEDS: 0.9 % Sodium Chloride Flush 3 ML SYRINGE IVFLUSH ×4 (00:06→20:15)
[2024-02-05 03:08] VITALS: BP 127/74; PULSE 74; RESP 16; TEMP 36.6; O2SAT 91
[2024-02-05 07:15] VITALS: BP 137/85; PULSE 73; RESP 16; TEMP 36.3; O2SAT 92
[2024-02-05] MEDS: oxyCODONE HCl Immed Release 5 MG TABLET PO ×2 (07:32→16:28)
--- NOTE | 2024-02-05 07:44 | PC.NURSE ---
IV to L upper arm reddened, warm to touch removed. unable to administer 0330 IV antibiotic. Pt declined IV insertion to be attempted, stated he wants to sleep and can be done later. Oncoming RN aware of no access, and that previous IV required ultrasound.
[2024-02-05] MEDS: Triamterene/HCTZ 37.5/25 TABLET 1 TAB PO (10:47)
[2024-02-05] MEDS: Enoxaparin Sodium 40 MG/0.4 ML SYRINGE SUBCUT (10:47)
[2024-02-05] MEDS: Docusate Sodium 100 MG CAPSULE PO (10:47)
[2024-02-05] MEDS: cilostazoL 100 MG TABLET PO (10:47)
[2024-02-05 11:17] VITALS: BP 132/79; PULSE 87; RESP 16; TEMP 36.6; O2SAT 95
--- NOTE | 2024-02-05 12:32 | HO.PM.IMPN ---
Subjective Subjective Date of Service: 02/05/24 Interval History: leucocytosis, ?abcess Review of Systems not muchabd pain no fevers Physical Exam Vital Signs: Vital Signs: Last Vital Signs Temp 97.9 F 02/05/24 11:17 Pulse 87 02/05/24 11:17 Resp 16 02/05/24 11:17 BP 132/79 02/05/24 11:17 Pulse Ox 95 02/05/24 11:17 O2 Del Method Room Air 02/05/24 11:17 O2 Flow Rate 2 02/05/24 07:15 FiO2 50 01/27/24 19:52 BMI result Body Mass Index 33.1 General: AO X 3, no acute distress Resp: decrease breath sounds CVS: S1,S2,RRR GI: tender around incisions, has drain on right side of abd. Skin: No rash Neuro: motor grossly intact Psych: appropriate affec Objective Data Active Medications Albuterol/Ipratropium (Albuterol/Iprat 2.5/0.5mg 3 Ml Ampul.Neb) 3 ml INHALE Q4H PRN PRN Reason: Wheezing Last Admin: 01/30/24 22:41 Dose: 3 ml Documented By: ZHENG Atorvastatin Calcium (Atorvastatin Calcium 80 Mg Tablet) 80 mg PO BEDTIME [facility] Last Admin: 02/04/24 20:09 Dose: 80 mg Documented By: BASIM Calcium Carbonate (Calcium Carbonate 750 Mg Tab.Chew) 750 mg PO Q4H PRN PRN Reason: Heartburn Cilostazol (Cilostazol 100 Mg Tablet) 100 mg PO DAILY [facility] Last Admin: 02/05/24 10:47 Dose: 100 mg Documented By: JOHNY Docusate Sodium (Docusate Sodium 100 Mg Capsule) 100 mg PO BID [facility] Last Admin: 02/05/24 10:47 Dose: 100 mg Documented By: JOHNY Enoxaparin Sodium (Enoxaparin Sodium 40 Mg/0.4 Ml Syringe) 40 mg SUBCUT Q24H [facility] Last Admin: 02/05/24 10:47 Dose: 40 mg Documented By: JOHNY Guaifenesin/Codeine Phosphate (Guaifen/Codeine Sf 200/20/10ml 10 Ml Liquid) 10 ml PO Q4H PRN PRN Reason: Cough Last Admin: 01/29/24 23:09 Dose: 10 ml Documented By: ROSENDO Hydromorphone HCl (Hydromorphone Hcl 0.5 Mg/0.5 Ml Syringe) 0.5 mg IVPUSH Q3H PRN; Protocol PRN Reason: Pain, Severe (Pain Scale 7-10) Last Admin: 02/05/24 00:06 Dose: 0.5 mg Documented By: BASIM Piperacillin Sod/Tazobactam (Sod 3.375 gm/ Sodium Chloride) 50 mls @ 100 mls/hr IV Q6H [facility] Last Infusion: 02/04/24 22:59 Dose: Infused Documented By: BASIM Doxycycline Hyclate 100 mg/ (Sodium Chloride) 250 mls @ 166.67 mls/hr IV Q12H [facility] Last Infusion: 02/04/24 21:29 Dose: Infused Documented By: BASIM Magnesium Hydroxide (Milk Of Magnesia 30 Ml Oral.Susp) 30 ml PO DAILY PRN PRN Reason: Constipation Melatonin (Melatonin 3 Mg Tablet) 6 mg PO BEDTIME PRN PRN Reason: Insomnia Last Admin: 01/30/24 21:43 Dose: 6 mg Documented By: ROSENDO Ondansetron HCl (Ondansetron Hcl 4 Mg/2 Ml Vial) 4 mg IVPUSH QID PRN PRN Reason: Nausea Oxycodone HCl (Oxycodone Hcl Immed Release 5 Mg Tablet) 5 mg PO Q6H PRN PRN Reason: Pain, Moderate(Pain Scale 4-6) Last Admin: 02/05/24 07:32 Dose: 5 mg Documented By: BASIM Sodium Chloride (0.9 % Sodium Chloride Flush 3 Ml Syringe) [address] [facility] Last Admin: 02/05/24 00:06 Dose: 3 ml Documented By: BASIM Triamterene/Hydrochlorothiazide (Triamterene/Hctz 37.5/25 Tablet) 1 tab PO DAILY [facility]; Protocol Last Admin: 02/05/24 10:47 Dose: 1 tab Documented By: JOHNY Labs 02/04/24 08:18 02/01/24 08:37 Microbiology Microbiology Results: Microbiology 02/02/24 14:00 Gram Stain - Final Abscess Appendiceal Routine Culture - Final Escherichia coli Bacillus species Anaerobic Culture - Preliminary Culture in progress. Assessment and Plan (1) S/P laparoscopic appendectomy: Status: Acute (2) Respiratory failure with hypoxia: Status: Acute Plan 73 yo male with a pmhx significant for HTN, CAD, mild stage 1 COPD and PVD, who presented to the ED this morning with abd pain and nausea, found to have sepsis secondary to a perforated appendix, now s/p lap appy and having post op acute respiratory failure with hypoxia requiring high flow O2. s/p lap appy- plan per surgery has leucocytosis improving tachycardia due to pain /anxiety -not due to sepsis , no fevers ct abd as per surgery -possible subhepatic abcess s/p drainage on 02/02/24. continue Doxy + Zosyn acute respiratory failure -suspect post op atelectasis an PNA - CT chest no PE but PNA -O2 requirement is better, wean off as jarocho -continue using incentive spirometry -continue Doxy + Zosyn stage 1 COPD - no acute exacerbation - no wheezing on exam -inhalers PRN HTN- continue triamterene-hctz, monotor potassium Hypokalemia--resolved PAD/CAD- continue cilostazol, statin lovenox for dvt prophylaxis Will continue to follow for now Quality Stroke Does the patient have a stroke diagnosis?: No VTE Prior VTE?: No VTE Risk Level:: Surgical - moderate VTE Device Contraindication: N/A - Device Ordered VTE Drug Contraindication: N/A - Med Ordered
[2024-02-05] MEDS: Piperacillin Sodium/Tazobactam 3.375 GM in 0.9 % Sodium Chloride 50 ML IV ×2 (13:15→20:14)
[2024-02-05] MEDS: Doxycycline Hyclate 100 MG in 0.9 % Sodium Chloride 250 ML 166.67 MG IV (14:03)
[2024-02-05 15:52] VITALS: BP 124/63; PULSE 80; RESP 20; TEMP 36.9; O2SAT 92
--- NOTE | 2024-02-05 16:12 | MHC.CM.PN ---
EMR reviewed and per MD rounds, pt is not medically cleared for discharge due to management of post-op care and pneumonia.
--- NOTE | 2024-02-05 17:48 | P.PNGS_ITS ---
Subjective Subjective Date of Service: 02/06/24 Interval history: feelling a little better Physical Exam 2 Vital Signs: Vital Signs: Last Vital Signs Temp 98.4 F 02/05/24 15:52 Pulse 80 02/05/24 15:52 Resp 20 02/05/24 15:52 BP 124/63 02/05/24 15:52 Pulse Ox 92 02/05/24 15:52 O2 Del Method Room Air 02/05/24 15:52 O2 Flow Rate 2 02/05/24 07:15 FiO2 50 01/27/24 19:52 BMI result Body Mass Index 33.1 GI: Other: abdomen soft mild right sided tenderness drain - serosang fluid no purulent Objective Data Active Medications Albuterol/Ipratropium (Albuterol/Iprat 2.5/0.5mg 3 Ml Ampul.Neb) 3 ml INHALE Q4H PRN PRN Reason: Wheezing Last Admin: 01/30/24 22:41 Dose: 3 ml Documented By: ZHENG Atorvastatin Calcium (Atorvastatin Calcium 80 Mg Tablet) 80 mg PO BEDTIME [facility] Last Admin: 02/04/24 20:09 Dose: 80 mg Documented By: BASIM Calcium Carbonate (Calcium Carbonate 750 Mg Tab.Chew) 750 mg PO Q4H PRN PRN Reason: Heartburn Cilostazol (Cilostazol 100 Mg Tablet) 100 mg PO DAILY [facility] Last Admin: 02/05/24 10:47 Dose: 100 mg Documented By: JOHNY Docusate Sodium (Docusate Sodium 100 Mg Capsule) 100 mg PO BID [facility] Last Admin: 02/05/24 10:47 Dose: 100 mg Documented By: JOHNY Enoxaparin Sodium (Enoxaparin Sodium 40 Mg/0.4 Ml Syringe) 40 mg SUBCUT Q24H [facility] Last Admin: 02/05/24 10:47 Dose: 40 mg Documented By: JOHNY Guaifenesin/Codeine Phosphate (Guaifen/Codeine Sf 200/20/10ml 10 Ml Liquid) 10 ml PO Q4H PRN PRN Reason: Cough Last Admin: 01/29/24 23:09 Dose: 10 ml Documented By: ROSENDO Hydromorphone HCl (Hydromorphone Hcl 0.5 Mg/0.5 Ml Syringe) 0.5 mg IVPUSH Q3H PRN; Protocol PRN Reason: Pain, Severe (Pain Scale 7-10) Last Admin: 02/05/24 00:06 Dose: 0.5 mg Documented By: BASIM Piperacillin Sod/Tazobactam (Sod 3.375 gm/ Sodium Chloride) 50 mls @ 100 mls/hr IV Q6H [facility] Last Infusion: 02/05/24 14:04 Dose: Infused Documented By: BINDU Doxycycline Hyclate 100 mg/ (Sodium Chloride) 250 mls @ 166.67 mls/hr IV Q12H [facility] Last Infusion: 02/05/24 16:26 Dose: Infused Documented By: JOHNY Magnesium Hydroxide (Milk Of Magnesia 30 Ml Oral.Susp) 30 ml PO DAILY PRN PRN Reason: Constipation Melatonin (Melatonin 3 Mg Tablet) 6 mg PO BEDTIME PRN PRN Reason: Insomnia Last Admin: 01/30/24 21:43 Dose: 6 mg Documented By: ROSENDO Ondansetron HCl (Ondansetron Hcl 4 Mg/2 Ml Vial) 4 mg IVPUSH QID PRN PRN Reason: Nausea Oxycodone HCl (Oxycodone Hcl Immed Release 5 Mg Tablet) 5 mg PO Q6H PRN PRN Reason: Pain, Moderate(Pain Scale 4-6) Last Admin: 02/05/24 16:28 Dose: 5 mg Documented By: JOHNY Sodium Chloride (0.9 % Sodium Chloride Flush 3 Ml Syringe) [facility] Last Admin: 02/05/24 16:25 Dose: 3 ml Documented By: JOHNY Triamterene/Hydrochlorothiazide (Triamterene/Hctz 37.5/25 Tablet) 1 tab PO DAILY [facility]; Protocol Last Admin: 02/05/24 10:47 Dose: 1 tab Documented By: JOHNY Labs 02/04/24 08:18 02/01/24 08:37 Microbiology Microbiology Results: Microbiology 02/02/24 14:00 Gram Stain - Final Abscess Appendiceal Routine Culture - Final Escherichia coli Bacillus species Anaerobic Culture - Preliminary Culture in progress. Procedures Date of Service Date of Service: 02/06/24 Progress Note: A&P Assessment and plan (1) S/P laparoscopic appendectomy: Status: Acute Assessment and Plan: s/p lap appy for perf appy and then intraabdo abscess drained - doing better - iv arm infiltrated and now cont with iv zosyn -fu cutltures jarocho po well recheck cbc Time Spent With Patient Time: Total time managing care of this patient today ____ minutes. Quality Stroke Does the patient have a stroke diagnosis?: No VTE Prior VTE?: No VTE Risk Level:: Surgical - moderate VTE Device Contraindication: N/A - Device Ordered VTE Drug Contraindication: N/A - Med Ordered
[2024-02-05 19:18] VITALS: BP 133/88; PULSE 103; RESP 16; TEMP 36.4; O2SAT 93
[2024-02-05] MEDS: Atorvastatin Calcium 80 MG TABLET PO (20:14)
[2024-02-05] MEDS: Melatonin 3 MG TABLET 6 MG PO (20:15)
--- NOTE | 2024-02-05 20:27 | PC.NURSE ---
Pt's reported that he had black stool today, Pt vague on details but was able to produce a very small dark stool. His L surgical puncture site is also noted to have a small firm area with no redness, pain, or drainage. Dr. Garcia called and made aware, orders pending, oncoming RN aware.
[2024-02-05 23:28] VITALS: BP 110/58; PULSE 73; RESP 16; TEMP 37.1; O2SAT 97
[2024-02-06] MEDS: Piperacillin Sodium/Tazobactam 3.375 GM in 0.9 % Sodium Chloride 50 ML IV ×4 (01:16→20:04)
[2024-02-06] MEDS: Doxycycline Hyclate 100 MG in 0.9 % Sodium Chloride 250 ML 166.67 MG IV ×2 (02:14→15:45)
[2024-02-06 03:33] VITALS: BP 133/79; PULSE 70; RESP 16; TEMP 36.5; O2SAT 93
[2024-02-06 07:18] VITALS: BP 142/85; PULSE 77; RESP 18; TEMP 36.4; O2SAT 92
[2024-02-06 07:39] LABS: Basophils Absolute Auto 0.1 X10*3/uL (0.0-0.2); Basophils Percent Auto 0.3 % (0-2); Eosinophils Absolute Auto 0.5 X10*3/uL (0.0-0.4); Eosinophils Percent Auto 2.5 % (0-4); Hematocrit 35.3 % (42.0-52.0); Hemoglobin 12.2 g/dl (14.0-18.0); Imm Gran Abs Auto 0.38 X10*3/uL (0.00-0.03); Imm Gran Pct Auto 2.2 % (0.0-0.4); Lymphocytes Percent Auto 11.4 % (20-40); MANUAL DIFF FLAG SCAN; Mean Corpuscular HGB Conc 34.6 g/dl (31.0-36.0); Mean Corpuscular Hemoglobin 30.7 pg (27.0-33.0); Mean Corpuscular Volume 88.7 fL (80.0-98.0); Mean Platelet Volume 9.5 fL (9.4-12.4); Monocytes Absolute Auto 1.6 X10*3/uL (0.1-1.2); Monocytes Percent Auto 8.8 % (2-11); Neutrophils Absolute Auto 13.2 x10*3/uL (2.0-8.3); Neutrophils Percent Auto 74.8 % (45-73); Platelet Count 543 X10*3/uL (160-400); Red Blood Count 3.98 X10*6/uL (4.60-5.80); Red Cell Distribution Width 15.3 % (11.0-16.0); SCAN SMEAR FLAG 1; White Blood Count 17.7 X10*3/uL (4.8-10.8)
[2024-02-06 08:13] LABS: SLIDE REVIEW VERIFIED
[2024-02-06] MEDS: Docusate Sodium 100 MG CAPSULE PO (08:45)
[2024-02-06] MEDS: 0.9 % Sodium Chloride Flush 3 ML SYRINGE IVFLUSH ×2 (08:45→20:04)
[2024-02-06] MEDS: cilostazoL 100 MG TABLET PO (08:45)
[2024-02-06] MEDS: Triamterene/HCTZ 37.5/25 TABLET 1 TAB PO (08:45)
[2024-02-06] MEDS: oxyCODONE HCl Immed Release 5 MG TABLET PO ×3 (08:53→20:41)
[2024-02-06 11:03] VITALS: BP 123/78; PULSE 87; RESP 20; TEMP 37; O2SAT 92
--- NOTE | 2024-02-06 13:46 | P.PNIM_ITS ---
Subjective Subjective Date of Service: 02/06/24 Interval History: leucocytosis, ?abcess Review of Systems not muchabd pain no fevers Physical Exam 2 Vital Signs: Vital Signs: Last Vital Signs Temp 98.6 F 02/06/24 11:03 Pulse 87 02/06/24 11:03 Resp 20 02/06/24 11:03 BP 123/78 02/06/24 11:03 Pulse Ox 92 02/06/24 11:03 O2 Del Method Room Air 02/06/24 11:03 O2 Flow Rate 2 02/05/24 07:15 FiO2 50 01/27/24 19:52 BMI result Body Mass Index 33.1 General: AO X 3, no acute distress Resp: decrease breath sounds CVS: S1,S2,RRR GI: tender around incisions, has drain on right side of abd. Skin: No rash Neuro: motor grossly intact Psych: appropriate affec Objective Data Active Medications Atorvastatin Calcium (Atorvastatin Calcium 80 Mg Tablet) 80 mg PO BEDTIME [facility] Last Admin: 02/05/24 20:14 Dose: 80 mg Documented By: BRAYDEN Calcium Carbonate (Calcium Carbonate 750 Mg Tab.Chew) 750 mg PO Q4H PRN PRN Reason: Heartburn Cilostazol (Cilostazol 100 Mg Tablet) 100 mg PO DAILY [facility] Last Admin: 02/06/24 08:45 Dose: 100 mg Documented By: JOHNY Docusate Sodium (Docusate Sodium 100 Mg Capsule) 100 mg PO BID [facility] Last Admin: 02/06/24 08:45 Dose: 100 mg Documented By: JOHNY Enoxaparin Sodium (Enoxaparin Sodium 40 Mg/0.4 Ml Syringe) 40 mg SUBCUT Q24H [facility] Last Admin: 02/05/24 10:47 Dose: 40 mg Documented By: JOHNY Guaifenesin/Codeine Phosphate (Guaifen/Codeine Sf 200/20/10ml 10 Ml Liquid) 10 ml PO Q4H PRN PRN Reason: Cough Last Admin: 01/29/24 23:09 Dose: 10 ml Documented By: ROSENDO Piperacillin Sod/Tazobactam (Sod 3.375 gm/ Sodium Chloride) 50 mls @ 100 mls/hr IV Q6H [facility] Last Infusion: 02/06/24 08:47 Dose: Infused Documented By: JOHNY Doxycycline Hyclate 100 mg/ (Sodium Chloride) 250 mls @ 166.67 mls/hr IV Q12H [facility] Last Infusion: 02/06/24 03:46 Dose: Infused Documented By: BRAYDEN Magnesium Hydroxide (Milk Of Magnesia 30 Ml Oral.Susp) 30 ml PO DAILY PRN PRN Reason: Constipation Melatonin (Melatonin 3 Mg Tablet) 6 mg PO BEDTIME PRN PRN Reason: Insomnia Last Admin: 02/05/24 20:15 Dose: 6 mg Documented By: BRAYDEN Ondansetron HCl (Ondansetron Hcl 4 Mg/2 Ml Vial) 4 mg IVPUSH QID PRN PRN Reason: Nausea Oxycodone HCl (Oxycodone Hcl Immed Release 5 Mg Tablet) 5 mg PO Q6H PRN PRN Reason: Pain, Moderate(Pain Scale 4-6) Last Admin: 02/06/24 08:53 Dose: 5 mg Documented By: JOHNY Sodium Chloride (0.9 % Sodium Chloride Flush 3 Ml Syringe) [facility] Last Admin: 02/06/24 08:45 Dose: 3 ml Documented By: JOHNY Triamterene/Hydrochlorothiazide (Triamterene/Hctz 37.5/25 Tablet) 1 tab PO DAILY [facility]; Protocol Last Admin: 02/06/24 08:45 Dose: 1 tab Documented By: JOHNY Labs 02/06/24 07:03 02/01/24 08:37 Labs: Laboratory Results - last 24 hr 02/06/24 07:03 MCV 88.7 MCH 30.7 MCHC 34.6 RDW 15.3 Plt Count 543 H MPV 9.5 Immature Gran % (Auto) 2.2 H Neut % (Auto) 74.8 H Lymph % (Auto) 11.4 L [place] % (Auto) 8.8 Eos % (Auto) 2.5 Baso % (Auto) 0.3 Lymph # (Auto) 2.0 [place] # (Auto) 1.6 H Eos # (Auto) 0.5 H Baso # (Auto) 0.1 Abs Immat Gran (auto) 0.38 H Absolute Neuts (auto) 13.2 H Absolute Nucleated RBC 0.000 Nucleated RBC % (auto) 0.0 Smear Tech's Comments VERIFIED Microbiology Microbiology Results: Microbiology 02/02/24 14:00 Gram Stain - Final Abscess Appendiceal Routine Culture - Final Escherichia coli Bacillus species Anaerobic Culture - Preliminary Culture in progress. Assessment and Plan (1) S/P laparoscopic appendectomy: Status: Acute (2) Respiratory failure with hypoxia: Status: Acute Plan 73 yo male with a pmhx significant for HTN, CAD, mild stage 1 COPD and PVD, who presented to the ED this morning with abd pain and nausea, found to have sepsis secondary to a perforated appendix, now s/p lap appy and having post op acute respiratory failure with hypoxia requiring high flow O2. s/p lap appy- plan per surgery has leucocytosis improving tachycardia due to pain /anxiety -not due to sepsis , no fevers ct abd as per surgery -possible subhepatic abcess s/p drainage on 02/02/24. continue Doxy + Zosyn acute respiratory failure -suspect post op atelectasis an PNA - CT chest no PE but PNA -O2 requirement is better, wean off as jarocho -continue using incentive spirometry -continue Doxy + Zosyn stage 1 COPD - no acute exacerbation - no wheezing on exam -inhalers PRN HTN- continue triamterene-hctz, monotor potassium Hypokalemia--resolved PAD/CAD- continue cilostazol, statin lovenox for dvt prophylaxis Will continue to follow for now Quality Stroke Does the patient have a stroke diagnosis?: No VTE Prior VTE?: No VTE Risk Level:: Surgical - moderate VTE Device Contraindication: N/A - Device Ordered VTE Drug Contraindication: N/A - Med Ordered
--- NOTE | 2024-02-06 13:47 | P.PNIM_ITS ---
Subjective Subjective Date of Service: 02/06/24 Physical Exam 2 Vital Signs: Vital Signs: Last Vital Signs Temp 98.6 F 02/06/24 11:03 Pulse 87 02/06/24 11:03 Resp 20 02/06/24 11:03 BP 123/78 02/06/24 11:03 Pulse Ox 92 02/06/24 11:03 O2 Del Method Room Air 02/06/24 11:03 O2 Flow Rate 2 02/05/24 07:15 FiO2 50 01/27/24 19:52 BMI result Body Mass Index 33.1 Objective Data Active Medications Atorvastatin Calcium (Atorvastatin Calcium 80 Mg Tablet) 80 mg PO BEDTIME [facility] Last Admin: 02/05/24 20:14 Dose: 80 mg Documented By: BRAYDEN Calcium Carbonate (Calcium Carbonate 750 Mg Tab.Chew) 750 mg PO Q4H PRN PRN Reason: Heartburn Cilostazol (Cilostazol 100 Mg Tablet) 100 mg PO DAILY [facility] Last Admin: 02/06/24 08:45 Dose: 100 mg Documented By: JOHNY Docusate Sodium (Docusate Sodium 100 Mg Capsule) 100 mg PO BID [facility] Last Admin: 02/06/24 08:45 Dose: 100 mg Documented By: JOHNY Enoxaparin Sodium (Enoxaparin Sodium 40 Mg/0.4 Ml Syringe) 40 mg SUBCUT Q24H [facility] Last Admin: 02/05/24 10:47 Dose: 40 mg Documented By: JOHNY Guaifenesin/Codeine Phosphate (Guaifen/Codeine Sf 200/20/10ml 10 Ml Liquid) 10 ml PO Q4H PRN PRN Reason: Cough Last Admin: 01/29/24 23:09 Dose: 10 ml Documented By: ROSENDO Piperacillin Sod/Tazobactam (Sod 3.375 gm/ Sodium Chloride) 50 mls @ 100 mls/hr IV Q6H [facility] Last Infusion: 02/06/24 08:47 Dose: Infused Documented By: JOHNY Doxycycline Hyclate 100 mg/ (Sodium Chloride) 250 mls @ 166.67 mls/hr IV Q12H [facility] Last Infusion: 02/06/24 03:46 Dose: Infused Documented By: BRAYDEN Magnesium Hydroxide (Milk Of Magnesia 30 Ml Oral.Susp) 30 ml PO DAILY PRN PRN Reason: Constipation Melatonin (Melatonin 3 Mg Tablet) 6 mg PO BEDTIME PRN PRN Reason: Insomnia Last Admin: 02/05/24 20:15 Dose: 6 mg Documented By: BRAYDEN Ondansetron HCl (Ondansetron Hcl 4 Mg/2 Ml Vial) 4 mg IVPUSH QID PRN PRN Reason: Nausea Oxycodone HCl (Oxycodone Hcl Immed Release 5 Mg Tablet) 5 mg PO Q6H PRN PRN Reason: Pain, Moderate(Pain Scale 4-6) Last Admin: 02/06/24 08:53 Dose: 5 mg Documented By: JOHNY Sodium Chloride (0.9 % Sodium Chloride Flush 3 Ml Syringe) [address] [facility] Last Admin: 02/06/24 08:45 Dose: 3 ml Documented By: JOHNY Triamterene/Hydrochlorothiazide (Triamterene/Hctz 37.5/25 Tablet) 1 tab PO DAILY [facility]; Protocol Last Admin: 02/06/24 08:45 Dose: 1 tab Documented By: JOHNY Labs 02/06/24 07:03 02/01/24 08:37 Labs: Laboratory Results - last 24 hr 02/06/24 07:03 MCV 88.7 MCH 30.7 MCHC 34.6 RDW 15.3 Plt Count 543 H MPV 9.5 Immature Gran % (Auto) 2.2 H Neut % (Auto) 74.8 H Lymph % (Auto) 11.4 L [place] % (Auto) 8.8 Eos % (Auto) 2.5 Baso % (Auto) 0.3 Lymph # (Auto) 2.0 [place] # (Auto) 1.6 H Eos # (Auto) 0.5 H Baso # (Auto) 0.1 Abs Immat Gran (auto) 0.38 H Absolute Neuts (auto) 13.2 H Absolute Nucleated RBC 0.000 Nucleated RBC % (auto) 0.0 Smear Tech's Comments VERIFIED Microbiology Microbiology Results: Microbiology 02/02/24 14:00 Gram Stain - Final Abscess Appendiceal Routine Culture - Final Escherichia coli Bacillus species Anaerobic Culture - Preliminary Culture in progress. Quality Stroke Does the patient have a stroke diagnosis?: No VTE Prior VTE?: No VTE Risk Level:: Surgical - moderate VTE Device Contraindication: N/A - Device Ordered VTE Drug Contraindication: N/A - Med Ordered
[2024-02-06] MEDS: Enoxaparin Sodium 40 MG/0.4 ML SYRINGE SUBCUT (14:38)
[2024-02-06 15:39] VITALS: BP 124/72; PULSE 98; RESP 16; TEMP 36.3; O2SAT 95
[2024-02-06 19:23] VITALS: BP 144/67; PULSE 85; RESP 16; TEMP 36.2; O2SAT 93
--- NOTE | 2024-02-06 19:30 | PM.PNGS ---
Subjective Subjective Date of Service: 02/06/24 Interval history: Patient is doing better feels better he is able to walk around move around but he says bending over still is very sore in his belly. No fevers or chills. Drain putting out serosanguineous fluid Physical Exam Vital Signs: Vital Signs: Last Vital Signs Temp 97.1 F 02/06/24 19:23 Pulse 85 02/06/24 19:23 Resp 16 02/06/24 19:23 BP 144/67 H 02/06/24 19:23 Pulse Ox 93 02/06/24 19:23 O2 Del Method Room Air 02/06/24 19:23 O2 Flow Rate 2 02/05/24 07:15 FiO2 50 01/27/24 19:52 BMI result Body Mass Index 33.1 Const: General: cooperative, healthy appearing, comfortable and no acute distress GI: Other: Abdomen is soft nondistended nontender other than right lower quadrant little bit no guarding no rebound no peritoneal signs. Psych: Appearance: grossly normal Mental Status: mental status grossly normal Speech and movement: Normal speech and movement present Affect: normal affect Attitude: cooperative Objective Data Active Medications Atorvastatin Calcium (Atorvastatin Calcium 80 Mg Tablet) 80 mg PO BEDTIME [facility] Last Admin: 02/05/24 20:14 Dose: 80 mg Documented By: BRAYDEN Calcium Carbonate (Calcium Carbonate 750 Mg Tab.Chew) 750 mg PO Q4H PRN PRN Reason: Heartburn Cilostazol (Cilostazol 100 Mg Tablet) 100 mg PO DAILY [facility] Last Admin: 02/06/24 08:45 Dose: 100 mg Documented By: JOHNY Docusate Sodium (Docusate Sodium 100 Mg Capsule) 100 mg PO BID [facility] Last Admin: 02/06/24 08:45 Dose: 100 mg Documented By: JOHNY Enoxaparin Sodium (Enoxaparin Sodium 40 Mg/0.4 Ml Syringe) 40 mg SUBCUT Q24H [facility] Last Admin: 02/06/24 14:38 Dose: 40 mg Documented By: JOHNY Guaifenesin/Codeine Phosphate (Guaifen/Codeine Sf 200/20/10ml 10 Ml Liquid) 10 ml PO Q4H PRN PRN Reason: Cough Last Admin: 01/29/24 23:09 Dose: 10 ml Documented By: ROSENDO Piperacillin Sod/Tazobactam (Sod 3.375 gm/ Sodium Chloride) 50 mls @ 100 mls/hr IV Q6H [facility] Last Infusion: 02/06/24 15:24 Dose: Infused Documented By: JOHNY Doxycycline Hyclate 100 mg/ (Sodium Chloride) 250 mls @ 166.67 mls/hr IV Q12H [facility] Last Infusion: 02/06/24 17:22 Dose: Infused Documented By: JOHNY Magnesium Hydroxide (Milk Of Magnesia 30 Ml Oral.Susp) 30 ml PO DAILY PRN PRN Reason: Constipation Melatonin (Melatonin 3 Mg Tablet) 6 mg PO BEDTIME PRN PRN Reason: Insomnia Last Admin: 02/05/24 20:15 Dose: 6 mg Documented By: BRAYDEN Ondansetron HCl (Ondansetron Hcl 4 Mg/2 Ml Vial) 4 mg IVPUSH QID PRN PRN Reason: Nausea Oxycodone HCl (Oxycodone Hcl Immed Release 5 Mg Tablet) 5 mg PO Q6H PRN PRN Reason: Pain, Moderate(Pain Scale 4-6) Last Admin: 02/06/24 14:38 Dose: 5 mg Documented By: JOHNY Sodium Chloride (0.9 % Sodium Chloride Flush 3 Ml Syringe) 3 ml IVFLUSH QSHIFT [facility] Last Admin: 02/06/24 15:25 Dose: Not Given Documented By: JOHNY Non-Admin Reason: IV Running Triamterene/Hydrochlorothiazide (Triamterene/Hctz 37.5/25 Tablet) 1 tab PO DAILY [facility]; Protocol Last Admin: 02/06/24 08:45 Dose: 1 tab Documented By: JOHNY Labs 02/06/24 07:03 02/01/24 08:37 Labs: Laboratory Results - last 24 hr 02/06/24 07:03 MCV 88.7 MCH 30.7 MCHC 34.6 RDW 15.3 Plt Count 543 H MPV 9.5 Immature Gran % (Auto) 2.2 H Neut % (Auto) 74.8 H Lymph % (Auto) 11.4 L [place] % (Auto) 8.8 Eos % (Auto) 2.5 Baso % (Auto) 0.3 Lymph # (Auto) 2.0 [place] # (Auto) 1.6 H Eos # (Auto) 0.5 H Baso # (Auto) 0.1 Abs Immat Gran (auto) 0.38 H Absolute Neuts (auto) 13.2 H Absolute Nucleated RBC 0.000 Nucleated RBC % (auto) 0.0 Smear Tech's Comments VERIFIED Microbiology Microbiology Results: Microbiology 02/02/24 14:00 Gram Stain - Final Abscess Appendiceal Routine Culture - Final Escherichia coli Bacillus species Anaerobic Culture - Preliminary Culture in progress. Procedures Date of Service Date of Service: 02/06/24 Progress Note: A&P Assessment and plan (1) S/P laparoscopic appendectomy: Status: Acute Assessment and Plan: 73-year-old male status post laparoscopic appendectomy had some issues with postoperative abscess had an interventional radiology guided drain placed in the right subhepatic area overall improving white count decreasing afebrile he feels better. Plan to continue IV antibiotics on IV Zosyn. Patient does not want to go home until he is feeling 100% well Microbiology is growing out E coli and bacillus sensitive to everything. I think for right now we continue with IV Zosyn and then hopefully maybe by Thursday we can discharge him home with some type of p.o. meds and the site of the drain needs to come out. May need repeat CT scan just to see if everything is resolved. Follow up what blood count on Thursday. Time Spent With Patient Time: Total time managing care of this patient today ____ minutes. Quality Stroke Does the patient have a stroke diagnosis?: No VTE Prior VTE?: No VTE Risk Level:: Surgical - moderate VTE Device Contraindication: N/A - Device Ordered VTE Drug Contraindication: N/A - Med Ordered
[2024-02-06] MEDS: Atorvastatin Calcium 80 MG TABLET PO (20:04)
[2024-02-06 23:59] VITALS: BP 128/78; PULSE 76; RESP 16; TEMP 36.6; O2SAT 91
[2024-02-07] MEDS: Piperacillin Sodium/Tazobactam 3.375 GM in 0.9 % Sodium Chloride 50 ML IV ×4 (01:37→18:19)
[2024-02-07] MEDS: Doxycycline Hyclate 100 MG in 0.9 % Sodium Chloride 250 ML 166.67 MG IV ×2 (02:21→15:21)
[2024-02-07 04:00] VITALS: BP 138/81; PULSE 81; RESP 16; TEMP 36.8; O2SAT 92
[2024-02-07 06:39] LABS: Hematocrit 35.6 % (42.0-52.0); Hemoglobin 12.2 g/dl (14.0-18.0); Mean Corpuscular HGB Conc 34.3 g/dl (31.0-36.0); Mean Corpuscular Hemoglobin 30.8 pg (27.0-33.0); Mean Corpuscular Volume 89.9 fL (80.0-98.0); Mean Platelet Volume 9.4 fL (9.4-12.4); Platelet Count 549 X10*3/uL (160-400); Red Blood Count 3.96 X10*6/uL (4.60-5.80); Red Cell Distribution Width 15.6 % (11.0-16.0); White Blood Count 16.6 X10*3/uL (4.8-10.8)
[2024-02-07 07:04] VITALS: BP 132/77; PULSE 71; RESP 18; TEMP 36.6; O2SAT 92
[2024-02-07] MEDS: oxyCODONE HCl Immed Release 5 MG TABLET PO ×3 (09:08→20:19)
[2024-02-07] MEDS: cilostazoL 100 MG TABLET PO (09:08)
[2024-02-07] MEDS: Docusate Sodium 100 MG CAPSULE PO ×2 (09:08→20:19)
[2024-02-07] MEDS: Triamterene/HCTZ 37.5/25 TABLET 1 TAB PO (09:08)
[2024-02-07 11:11] VITALS: BP 138/70; PULSE 84; RESP 18; TEMP 36.2; O2SAT 93
--- NOTE | 2024-02-07 11:29 | P.PNGS_ITS ---
Subjective Subjective Date of Service: 02/07/24 Interval history: PATIENT IS DOING WELL HIS ARM WHERE THE INFILTRATED IV was is improved. He is not having too much abdominal pain WILLAM drain is draining out more serosanguineous fluid. He denies any fevers or chills tolerating p.o. diet well Physical Exam 2 Vital Signs: Vital Signs: Last Vital Signs Temp 97.1 F 02/07/24 11:11 Pulse 84 02/07/24 11:11 Resp 18 02/07/24 11:11 BP 138/70 02/07/24 11:11 Pulse Ox 93 02/07/24 11:11 O2 Del Method Room Air 02/07/24 11:11 O2 Flow Rate 1.5 02/07/24 04:00 FiO2 50 01/27/24 19:52 BMI result Body Mass Index 33.1 Const: General: cooperative, healthy appearing, comfortable and no acute distress GI: Other: Abdomen is soft nondistended nontender. WILLAM drain with serosanguineous fluid Objective Data Active Medications Atorvastatin Calcium (Atorvastatin Calcium 80 Mg Tablet) 80 mg PO BEDTIME [facility] Last Admin: 02/06/24 20:04 Dose: 80 mg Documented By: BRAYDEN Calcium Carbonate (Calcium Carbonate 750 Mg Tab.Chew) 750 mg PO Q4H PRN PRN Reason: Heartburn Cilostazol (Cilostazol 100 Mg Tablet) 100 mg PO DAILY [facility] Last Admin: 02/07/24 09:08 Dose: 100 mg Documented By: JOHNY Docusate Sodium (Docusate Sodium 100 Mg Capsule) 100 mg PO BID [facility] Last Admin: 02/07/24 09:08 Dose: 100 mg Documented By: JOHNY Enoxaparin Sodium (Enoxaparin Sodium 40 Mg/0.4 Ml Syringe) 40 mg SUBCUT Q24H [facility] Last Admin: 02/06/24 14:38 Dose: 40 mg Documented By: JOHNY Guaifenesin/Codeine Phosphate (Guaifen/Codeine Sf 200/20/10ml 10 Ml Liquid) 10 ml PO Q4H PRN PRN Reason: Cough Last Admin: 01/29/24 23:09 Dose: 10 ml Documented By: ROSENDO Piperacillin Sod/Tazobactam (Sod 3.375 gm/ Sodium Chloride) 50 mls @ 100 mls/hr IV Q6H [facility] Last Infusion: 02/07/24 07:08 Dose: Infused Documented By: JOHNY Doxycycline Hyclate 100 mg/ (Sodium Chloride) 250 mls @ 166.67 mls/hr IV Q12H [facility] Last Infusion: 02/07/24 04:10 Dose: Infused Documented By: BRAYDEN Magnesium Hydroxide (Milk Of Magnesia 30 Ml Oral.Susp) 30 ml PO DAILY PRN PRN Reason: Constipation Melatonin (Melatonin 3 Mg Tablet) 6 mg PO BEDTIME PRN PRN Reason: Insomnia Last Admin: 02/05/24 20:15 Dose: 6 mg Documented By: BRAYDEN Ondansetron HCl (Ondansetron Hcl 4 Mg/2 Ml Vial) 4 mg IVPUSH QID PRN PRN Reason: Nausea Oxycodone HCl (Oxycodone Hcl Immed Release 5 Mg Tablet) 5 mg PO Q6H PRN PRN Reason: Pain, Moderate(Pain Scale 4-6) Last Admin: 02/07/24 09:08 Dose: 5 mg Documented By: JOHNY Sodium Chloride (0.9 % Sodium Chloride Flush 3 Ml Syringe) 3 ml IVFLUSH QSHIFT [facility] Last Admin: 02/07/24 07:09 Dose: Not Given Documented By: JOHNY Non-Admin Reason: IV Running Triamterene/Hydrochlorothiazide (Triamterene/Hctz 37.5/25 Tablet) 1 tab PO DAILY [facility]; Protocol Last Admin: 02/07/24 09:08 Dose: 1 tab Documented By: JOHNY Labs 02/07/24 06:16 02/01/24 08:37 Labs: Laboratory Results - last 24 hr 02/07/24 06:16 MCV 89.9 MCH 30.8 MCHC 34.3 RDW 15.6 Plt Count 549 H MPV 9.4 Absolute Nucleated RBC 0.000 Nucleated RBC % (auto) 0.0 Microbiology Microbiology Results: Microbiology 02/02/24 14:00 Gram Stain - Final Abscess Appendiceal Routine Culture - Final Escherichia coli Bacillus species Anaerobic Culture - Preliminary Culture in progress. Procedures Date of Service Date of Service: 02/07/24 Progress Note: A&P Assessment and plan (1) S/P laparoscopic appendectomy: Status: Acute Assessment and Plan: 73-year-old male status post laparoscopic appendectomy for acute appendicitis then developed the abscess status post drainage overall improving microbiology reveals antibiotic sensitive to the organism so plan to continue with the Zosyn. May want to consider repeat imaging before pulling drain. And then may want to convert to p.o. antibiotics and discharge. We will re-evaluate tomorrow but overall patient doing. Time Spent With Patient Time: Total time managing care of this patient today ____ minutes. Quality Stroke Does the patient have a stroke diagnosis?: No VTE Prior VTE?: No VTE Risk Level:: Surgical - moderate VTE Device Contraindication: N/A - Device Ordered VTE Drug Contraindication: N/A - Med Ordered
--- NOTE | 2024-02-07 12:43 | HO.PM.IMPN ---
Subjective Subjective Date of Service: 02/07/24 Interval History: leucocytosis ,? abcess Review of Systems seems improving leucocytosis and abd pain has drain Physical Exam Vital Signs: Vital Signs: Last Vital Signs Temp 97.1 F 02/07/24 11:11 Pulse 84 02/07/24 11:11 Resp 18 02/07/24 11:11 BP 138/70 02/07/24 11:11 Pulse Ox 93 02/07/24 11:11 O2 Del Method Room Air 02/07/24 11:11 O2 Flow Rate 1.5 02/07/24 04:00 FiO2 50 01/27/24 19:52 BMI result Body Mass Index 33.1 General: AO X 3, no acute distress Resp: decrease breath sounds CVS: S1,S2,RRR GI: tender around incisions, has drain on right side of abd. Skin: No rash Neuro: motor grossly intact Psych: appropriate affect. Objective Data Active Medications Atorvastatin Calcium (Atorvastatin Calcium 80 Mg Tablet) 80 mg PO BEDTIME [facility] Last Admin: 02/06/24 20:04 Dose: 80 mg Documented By: BRAYDEN Calcium Carbonate (Calcium Carbonate 750 Mg Tab.Chew) 750 mg PO Q4H PRN PRN Reason: Heartburn Cilostazol (Cilostazol 100 Mg Tablet) 100 mg PO DAILY [facility] Last Admin: 02/07/24 09:08 Dose: 100 mg Documented By: JOHNY Docusate Sodium (Docusate Sodium 100 Mg Capsule) 100 mg PO BID [facility] Last Admin: 02/07/24 09:08 Dose: 100 mg Documented By: JOHNY Enoxaparin Sodium (Enoxaparin Sodium 40 Mg/0.4 Ml Syringe) 40 mg SUBCUT Q24H [facility] Last Admin: 02/06/24 14:38 Dose: 40 mg Documented By: JOHNY Guaifenesin/Codeine Phosphate (Guaifen/Codeine Sf 200/20/10ml 10 Ml Liquid) 10 ml PO Q4H PRN PRN Reason: Cough Last Admin: 01/29/24 23:09 Dose: 10 ml Documented By: ROSENDO Piperacillin Sod/Tazobactam (Sod 3.375 gm/ Sodium Chloride) 50 mls @ 100 mls/hr IV Q6H [facility] Last Infusion: 02/07/24 07:08 Dose: Infused Documented By: JOHNY Doxycycline Hyclate 100 mg/ (Sodium Chloride) 250 mls @ 166.67 mls/hr IV Q12H [facility] Last Infusion: 02/07/24 04:10 Dose: Infused Documented By: BRAYDEN Magnesium Hydroxide (Milk Of Magnesia 30 Ml Oral.Susp) 30 ml PO DAILY PRN PRN Reason: Constipation Melatonin (Melatonin 3 Mg Tablet) 6 mg PO BEDTIME PRN PRN Reason: Insomnia Last Admin: 02/05/24 20:15 Dose: 6 mg Documented By: BRAYDEN Ondansetron HCl (Ondansetron Hcl 4 Mg/2 Ml Vial) 4 mg IVPUSH QID PRN PRN Reason: Nausea Oxycodone HCl (Oxycodone Hcl Immed Release 5 Mg Tablet) 5 mg PO Q6H PRN PRN Reason: Pain, Moderate(Pain Scale 4-6) Last Admin: 02/07/24 09:08 Dose: 5 mg Documented By: JOHNY Sodium Chloride (0.9 % Sodium Chloride Flush 3 Ml Syringe) 3 ml IVFLUSH QSHIFT [facility] Last Admin: 02/07/24 07:09 Dose: Not Given Documented By: JOHNY Non-Admin Reason: IV Running Triamterene/Hydrochlorothiazide (Triamterene/Hctz 37.5/25 Tablet) 1 tab PO DAILY [facility]; Protocol Last Admin: 02/07/24 09:08 Dose: 1 tab Documented By: JOHNY Labs 02/07/24 06:16 02/01/24 08:37 Labs: Laboratory Results - last 24 hr 02/07/24 06:16 MCV 89.9 MCH 30.8 MCHC 34.3 RDW 15.6 Plt Count 549 H MPV 9.4 Absolute Nucleated RBC 0.000 Nucleated RBC % (auto) 0.0 Microbiology Microbiology Results: Microbiology 02/02/24 14:00 Gram Stain - Final Abscess Appendiceal Routine Culture - Final Escherichia coli Bacillus species Anaerobic Culture - Preliminary Culture in progress. Assessment and Plan (1) S/P laparoscopic appendectomy: Status: Acute (2) Respiratory failure with hypoxia: Status: Acute Plan 73 yo male with a pmhx significant for HTN, CAD, mild stage 1 COPD and PVD, who presented to the ED this morning with abd pain and nausea, found to have sepsis secondary to a perforated appendix, now s/p lap appy and having post op acute respiratory failure with hypoxia requiring high flow O2. s/p lap appy- plan per surgery has leucocytosis improving tachycardia due to pain /anxiety -not due to sepsis , no fevers ct abd as per surgery -possible subhepatic abcess s/p drainage on 02/02/24. abcess cultures from 02/01 : ecoli continue Zosyn. acute respiratory failure -suspect post op atelectasis an PNA - CT chest no PE but PNA -O2 requirement is better, wean off as jarocho -continue using incentive spirometry -continue Doxy + Zosyn stage 1 COPD - no acute exacerbation - no wheezing on exam -inhalers PRN HTN- continue triamterene-hctz, monotor potassium Hypokalemia--resolved PAD/CAD- continue cilostazol, statin lovenox for dvt prophylaxis Will continue to follow for now Quality Stroke Does the patient have a stroke diagnosis?: No VTE Prior VTE?: No VTE Risk Level:: Surgical - moderate VTE Device Contraindication: N/A - Device Ordered VTE Drug Contraindication: N/A - Med Ordered
[2024-02-07] MEDS: Enoxaparin Sodium 40 MG/0.4 ML SYRINGE SUBCUT (14:22)
[2024-02-07 16:00] VITALS: BP 135/90; PULSE 73; RESP 18; TEMP 36.4; O2SAT 95
[2024-02-07 19:40] VITALS: BP 139/77; PULSE 77; RESP 20; TEMP 36.1; O2SAT 92
[2024-02-07] MEDS: Atorvastatin Calcium 80 MG TABLET PO (20:19)
[2024-02-07] MEDS: 0.9 % Sodium Chloride Flush 3 ML SYRINGE IVFLUSH (20:20)
[2024-02-08] VITALS (7 sets, daily range): BP systolic 116–154; BP diastolic 68–91; PULSE 65–81; RESP 18–20; TEMP 36.1–36.6; O2SAT 92–96
[2024-02-08] MEDS: Piperacillin Sodium/Tazobactam 3.375 GM in 0.9 % Sodium Chloride 50 ML IV ×4 (00:11→18:25)
[2024-02-08] MEDS: oxyCODONE HCl Immed Release 5 MG TABLET PO ×4 (02:11→21:45)
[2024-02-08] MEDS: Doxycycline Hyclate 100 MG in 0.9 % Sodium Chloride 250 ML 166.67 MG IV ×2 (02:11→14:33)
[2024-02-08] MEDS: 0.9 % Sodium Chloride Flush 3 ML SYRINGE IVFLUSH (08:03)
[2024-02-08] MEDS: cilostazoL 100 MG TABLET PO (08:04)
[2024-02-08] MEDS: Triamterene/HCTZ 37.5/25 TABLET 1 TAB PO (08:04)
[2024-02-08 08:11] LABS: Basophils Absolute Auto 0.1 X10*3/uL (0.0-0.2); Basophils Percent Auto 0.6 % (0-2); Eosinophils Absolute Auto 0.5 X10*3/uL (0.0-0.4); Eosinophils Percent Auto 3.2 % (0-4); Hematocrit 38.7 % (42.0-52.0); Hemoglobin 13.4 g/dl (14.0-18.0); Imm Gran Abs Auto 0.17 X10*3/uL (0.00-0.03); Imm Gran Pct Auto 1.2 % (0.0-0.4); Lymphocytes Absolute Auto 2.2 X10*3/uL (1.2-4.9); Lymphocytes Percent Auto 15.6 % (20-40); MANUAL DIFF FLAG SCAN; Mean Corpuscular HGB Conc 34.6 g/dl (31.0-36.0); Mean Corpuscular Hemoglobin 30.9 pg (27.0-33.0); Mean Corpuscular Volume 89.2 fL (80.0-98.0); Mean Platelet Volume 9.2 fL (9.4-12.4); Monocytes Absolute Auto 1.6 X10*3/uL (0.1-1.2); Monocytes Percent Auto 10.9 % (2-11); Neutrophils Absolute Auto 9.8 x10*3/uL (2.0-8.3); Neutrophils Percent Auto 68.5 % (45-73); Platelet Count 635 X10*3/uL (160-400); Red Blood Count 4.34 X10*6/uL (4.60-5.80); Red Cell Distribution Width 15.5 % (11.0-16.0); SCAN SMEAR FLAG 1; White Blood Count 14.4 X10*3/uL (4.8-10.8)
[2024-02-08 08:33] LABS: SLIDE REVIEW VERIFIED
--- NOTE | 2024-02-08 08:49 | PM.PNGS ---
Subjective Subjective Date of Service: 02/08/24 Interval history: Overall feels improved but does have some pain from the drain site. Has been eating and taking protein shakes. Physical Exam Vital Signs: Vital Signs: Last Vital Signs Temp 97.7 F 02/08/24 07:40 Pulse 78 02/08/24 07:40 Resp 20 02/08/24 07:40 BP 154/91 H 02/08/24 07:40 Pulse Ox 93 02/08/24 07:40 O2 Del Method Room Air 02/08/24 07:40 O2 Flow Rate 1.5 02/07/24 04:00 FiO2 50 01/27/24 19:52 BMI result Body Mass Index 33.1 Const: General: no acute distress Nutritional Appearance: well nourished Orientation/consciousness: patient oriented x3 Limitations: no limitations Resp: Other: Breathing comfortably on room air, no respiratory distress GI: Other: Soft and nondistended, WILLAM site clean and intact. Minimal output in the WILLAM. Neuro: General: patient oriented x3 Extrem: Other: Edema in the left upper extremity from IV infiltrate Objective Data Active Medications Atorvastatin Calcium (Atorvastatin Calcium 80 Mg Tablet) 80 mg PO BEDTIME [facility] Last Admin: 02/07/24 20:19 Dose: 80 mg Documented By: JOANNE Calcium Carbonate (Calcium Carbonate 750 Mg Tab.Chew) 750 mg PO Q4H PRN PRN Reason: Heartburn Cilostazol (Cilostazol 100 Mg Tablet) 100 mg PO DAILY [facility] Last Admin: 02/08/24 08:04 Dose: 100 mg Documented By: JOHNY Docusate Sodium (Docusate Sodium 100 Mg Capsule) 100 mg PO BID [facility] Last Admin: 02/08/24 08:05 Dose: Not Given Documented By: JOHNY Non-Admin Reason: Patient Refused Enoxaparin Sodium (Enoxaparin Sodium 40 Mg/0.4 Ml Syringe) 40 mg SUBCUT Q24H [facility] Last Admin: 02/07/24 14:22 Dose: 40 mg Documented By: JOHNY Guaifenesin/Codeine Phosphate (Guaifen/Codeine Sf 200/20/10ml 10 Ml Liquid) 10 ml PO Q4H PRN PRN Reason: Cough Last Admin: 01/29/24 23:09 Dose: 10 ml Documented By: ROSENDO Piperacillin Sod/Tazobactam (Sod 3.375 gm/ Sodium Chloride) 50 mls @ 100 mls/hr IV Q6H [facility] Last Infusion: 02/08/24 08:12 Dose: Infused Documented By: JOHNY Doxycycline Hyclate 100 mg/ (Sodium Chloride) 250 mls @ 166.67 mls/hr IV Q12H [facility] Last Infusion: 02/08/24 04:00 Dose: Infused Documented By: JOANNE Magnesium Hydroxide (Milk Of Magnesia 30 Ml Oral.Susp) 30 ml PO DAILY PRN PRN Reason: Constipation Melatonin (Melatonin 3 Mg Tablet) 6 mg PO BEDTIME PRN PRN Reason: Insomnia Last Admin: 02/05/24 20:15 Dose: 6 mg Documented By: BRAYDEN Ondansetron HCl (Ondansetron Hcl 4 Mg/2 Ml Vial) 4 mg IVPUSH QID PRN PRN Reason: Nausea Oxycodone HCl (Oxycodone Hcl Immed Release 5 Mg Tablet) 5 mg PO Q6H PRN PRN Reason: Pain, Moderate(Pain Scale 4-6) Last Admin: 02/08/24 08:02 Dose: 5 mg Documented By: JOHNY Sodium Chloride (0.9 % Sodium Chloride Flush 3 Ml Syringe) [facility] Last Admin: 02/08/24 08:03 Dose: 3 ml Documented By: JOHNY Triamterene/Hydrochlorothiazide (Triamterene/Hctz 37.5/25 Tablet) 1 tab PO DAILY [facility]; Protocol Last Admin: 02/08/24 08:04 Dose: 1 tab Documented By: JOHNY Labs 02/08/24 08:01 02/01/24 08:37 Labs: Laboratory Results - last 24 hr 02/08/24 08:01 MCV 89.2 MCH 30.9 MCHC 34.6 RDW 15.5 Plt Count 635 H MPV 9.2 L Immature Gran % (Auto) 1.2 H Neut % (Auto) 68.5 Lymph % (Auto) 15.6 L [place] % (Auto) 10.9 Eos % (Auto) 3.2 Baso % (Auto) 0.6 Lymph # (Auto) 2.2 [place] # (Auto) 1.6 H Eos # (Auto) 0.5 H Baso # (Auto) 0.1 Abs Immat Gran (auto) 0.17 H Absolute Neuts (auto) 9.8 H Absolute Nucleated RBC 0.000 Nucleated RBC % (auto) 0.0 Smear Tech's Comments VERIFIED Microbiology Microbiology Results: Microbiology 02/02/24 14:00 Gram Stain - Final Abscess Appendiceal Routine Culture - Final Escherichia coli Bacillus species Anaerobic Culture - Final Procedures Date of Service Date of Service: 02/08/24 Progress Note: A&P Assessment and plan (1) Ruptured appendicitis: Status: Acute (2) S/P laparoscopic appendectomy: Status: Acute Plan 73-year-old male status post ruptured appendicitis, laparoscopic appendectomy with washout. Subsequently developed abscess which was drained by IR 1 week ago. Plan to repeat CT today to follow-up. Overall he is improved with decreased with WBC. Possible removal of WILLAM if CT okay. The patient expressed understanding and agrees with the plan. He does report some dark stool therefore we will check stool for occult blood. Time Spent With Patient Time: Total time managing care of this patient today ____ minutes. Quality Stroke Does the patient have a stroke diagnosis?: No VTE Prior VTE?: No VTE Risk Level:: Surgical - moderate VTE Device Contraindication: N/A - Device Ordered VTE Drug Contraindication: N/A - Med Ordered
--- NOTE | 2024-02-08 11:49 | P.PNIM_ITS ---
Subjective Subjective Date of Service: 02/08/24 Interval History: abd pain improved. and leucocytosis seems improving Review of Systems new new c/o. Physical Exam 2 Vital Signs: Vital Signs: Last Vital Signs Temp 97.7 F 02/08/24 07:40 Pulse 78 02/08/24 07:40 Resp 20 02/08/24 07:40 BP 154/91 H 02/08/24 07:40 Pulse Ox 93 02/08/24 07:40 O2 Del Method Room Air 02/08/24 07:40 O2 Flow Rate 1.5 02/07/24 04:00 FiO2 50 01/27/24 19:52 BMI result Body Mass Index 33.1 General: AO X 3, no acute distress Resp: air entery fair , no rales or wheezing CVS: S1,S2,RRR GI: tender around incisions, has drain on right side of abd. Skin: No rash Neuro: motor grossly intact Psych: appropriate affect. Objective Data Active Medications Atorvastatin Calcium (Atorvastatin Calcium 80 Mg Tablet) 80 mg PO BEDTIME [facility] Last Admin: 02/07/24 20:19 Dose: 80 mg Documented By: JOANNE Calcium Carbonate (Calcium Carbonate 750 Mg Tab.Chew) 750 mg PO Q4H PRN PRN Reason: Heartburn Cilostazol (Cilostazol 100 Mg Tablet) 100 mg PO DAILY [facility] Last Admin: 02/08/24 08:04 Dose: 100 mg Documented By: JOHNY Docusate Sodium (Docusate Sodium 100 Mg Capsule) 100 mg PO BID [facility] Last Admin: 02/08/24 08:05 Dose: Not Given Documented By: JOHNY Non-Admin Reason: Patient Refused Enoxaparin Sodium (Enoxaparin Sodium 40 Mg/0.4 Ml Syringe) 40 mg SUBCUT Q24H [facility] Last Admin: 02/07/24 14:22 Dose: 40 mg Documented By: JOHNY Guaifenesin/Codeine Phosphate (Guaifen/Codeine Sf 200/20/10ml 10 Ml Liquid) 10 ml PO Q4H PRN PRN Reason: Cough Last Admin: 01/29/24 23:09 Dose: 10 ml Documented By: ROSENDO Piperacillin Sod/Tazobactam (Sod 3.375 gm/ Sodium Chloride) 50 mls @ 100 mls/hr IV Q6H [facility] Last Infusion: 02/08/24 08:12 Dose: Infused Documented By: JOHNY Doxycycline Hyclate 100 mg/ (Sodium Chloride) 250 mls @ 166.67 mls/hr IV Q12H [facility] Last Infusion: 02/08/24 04:00 Dose: Infused Documented By: JOANNE Magnesium Hydroxide (Milk Of Magnesia 30 Ml Oral.Susp) 30 ml PO DAILY PRN PRN Reason: Constipation Melatonin (Melatonin 3 Mg Tablet) 6 mg PO BEDTIME PRN PRN Reason: Insomnia Last Admin: 02/05/24 20:15 Dose: 6 mg Documented By: BRAYDEN Ondansetron HCl (Ondansetron Hcl 4 Mg/2 Ml Vial) 4 mg IVPUSH QID PRN PRN Reason: Nausea Oxycodone HCl (Oxycodone Hcl Immed Release 5 Mg Tablet) 5 mg PO Q6H PRN PRN Reason: Pain, Moderate(Pain Scale 4-6) Last Admin: 02/08/24 08:02 Dose: 5 mg Documented By: JOHNY Sodium Chloride (0.9 % Sodium Chloride Flush 3 Ml Syringe) 3 ml IVFLUSH QSHIFT [facility] Last Admin: 02/08/24 08:03 Dose: 3 ml Documented By: JOHNY Triamterene/Hydrochlorothiazide (Triamterene/Hctz 37.5/25 Tablet) 1 tab PO DAILY [facility]; Protocol Last Admin: 02/08/24 08:04 Dose: 1 tab Documented By: JOHNY Labs 02/08/24 08:01 02/01/24 08:37 Labs: Laboratory Results - last 24 hr 02/08/24 08:01 MCV 89.2 MCH 30.9 MCHC 34.6 RDW 15.5 Plt Count 635 H MPV 9.2 L Immature Gran % (Auto) 1.2 H Neut % (Auto) 68.5 Lymph % (Auto) 15.6 L [place] % (Auto) 10.9 Eos % (Auto) 3.2 Baso % (Auto) 0.6 Lymph # (Auto) 2.2 [place] # (Auto) 1.6 H Eos # (Auto) 0.5 H Baso # (Auto) 0.1 Abs Immat Gran (auto) 0.17 H Absolute Neuts (auto) 9.8 H Absolute Nucleated RBC 0.000 Nucleated RBC % (auto) 0.0 Smear Tech's Comments VERIFIED Microbiology Microbiology Results: Microbiology 02/02/24 14:00 Gram Stain - Final Abscess Appendiceal Routine Culture - Final Escherichia coli Bacillus species Anaerobic Culture - Final Assessment and Plan (1) S/P laparoscopic appendectomy: Status: Acute (2) Respiratory failure with hypoxia: Status: Acute Plan 73 yo male with a pmhx significant for HTN, CAD, mild stage 1 COPD and PVD, who presented to the ED this morning with abd pain and nausea, found to have sepsis secondary to a perforated appendix, now s/p lap appy and having post op acute respiratory failure with hypoxia requiring high flow O2. s/p lap appy- plan per surgery has leucocytosis improving tachycardia due to pain /anxiety -not due to sepsis , no fevers ct abd as per surgery -possible subhepatic abcess s/p drainage on 02/02/24. abcess cultures from 02/01 : ecoli continue Zosyn. surgery to add abd ct for alice drain plan acute respiratory failure -suspect post op atelectasis an PNA - CT chest no PE but PNA -O2 requirement is better, wean off as jarocho -continue using incentive spirometry -continue Doxy + Zosyn stage 1 COPD - no acute exacerbation - no wheezing on exam -inhalers PRN HTN- continue triamterene-hctz, monotor potassium Hypokalemia--resolved PAD/CAD- continue cilostazol, statin lovenox for dvt prophylaxis Will continue to follow for now Quality Stroke Does the patient have a stroke diagnosis?: No VTE Prior VTE?: No VTE Risk Level:: Surgical - moderate VTE Device Contraindication: N/A - Device Ordered VTE Drug Contraindication: N/A - Med Ordered
[2024-02-08] MEDS: iohexoL 350 MG/ML 100 ML INFUS..BTL IV (11:57)
--- NOTE | 2024-02-08 11:58 | MHC.CM.PN ---
EMR REVIEWED, PT S/P LAP APPY & WASHOUT AND DEVELOPED ABSCESS, IR DRAINAGE LAST WEEK, PLAN FOR REPEAT CT SCAN TODAY, IF OKAY WILL REMOVE WILLAM DRAIN, CM WILL CONT TO FOLLOW DC NEEDS.
[2024-02-08] MEDS: Diatrizoate Meglumine, Sodium 120 ML SOLUTION PR (11:59)
[2024-02-08] MEDS: Enoxaparin Sodium 40 MG/0.4 ML SYRINGE SUBCUT (13:02)
[2024-02-08 13:44] LABS: OBS Int Ctl Valid YES; OBS1 NEGATIVE (NEGATIVE)
[2024-02-08] MEDS: Atorvastatin Calcium 80 MG TABLET PO (21:46)
[2024-02-09] MEDS: Piperacillin Sodium/Tazobactam 3.375 GM in 0.9 % Sodium Chloride 50 ML IV ×2 (00:14→06:34)
[2024-02-09] MEDS: Doxycycline Hyclate 100 MG in 0.9 % Sodium Chloride 250 ML 166.67 MG IV (01:45)
[2024-02-09] MEDS: 0.9 % Sodium Chloride Flush 3 ML SYRINGE IVFLUSH ×2 (01:45→07:46)
[2024-02-09 03:42] VITALS: BP 134/84; PULSE 74; RESP 18; TEMP 36.2; O2SAT 92
[2024-02-09] MEDS: oxyCODONE HCl Immed Release 5 MG TABLET PO (06:33)
[2024-02-09 07:36] VITALS: BP 133/84; PULSE 71; RESP 18; TEMP 36.8; O2SAT 92
[2024-02-09] MEDS: Triamterene/HCTZ 37.5/25 TABLET 1 TAB PO (07:47)
[2024-02-09] MEDS: cilostazoL 100 MG TABLET PO (07:47)
--- NOTE | 2024-02-09 07:50 | PM.PNGS ---
Subjective Subjective Date of Service: 02/09/24 Interval history: Reports soreness at the drain site in the right upper quadrant/flank. He was able to tolerate a diet without nausea or vomiting. Physical Exam Vital Signs: Vital Signs: Last Vital Signs Temp 98.2 F 02/09/24 07:36 Pulse 71 02/09/24 07:36 Resp 18 02/09/24 07:36 BP 133/84 02/09/24 07:36 Pulse Ox 92 02/09/24 07:36 O2 Del Method Room Air 02/09/24 07:36 O2 Flow Rate 1.5 02/07/24 04:00 FiO2 50 01/27/24 19:52 BMI result Body Mass Index 33.1 Const: General: no acute distress Nutritional Appearance: well nourished Orientation/consciousness: patient oriented x3 Limitations: no limitations Resp: Other: Breathing comfortably on room air, no respiratory distress GI: Other: Soft and nondistended, previous WILLAM site clean and intact without redness or discharge. Dressing removed. Neuro: General: patient oriented x3 Extrem: Other: Edema in the left upper extremity from IV infiltrate Objective Data Active Medications Atorvastatin Calcium (Atorvastatin Calcium 80 Mg Tablet) 80 mg PO BEDTIME [facility] Last Admin: 02/08/24 21:46 Dose: 80 mg Documented By: YAN Calcium Carbonate (Calcium Carbonate 750 Mg Tab.Chew) 750 mg PO Q4H PRN PRN Reason: Heartburn Cilostazol (Cilostazol 100 Mg Tablet) 100 mg PO DAILY [facility] Last Admin: 02/09/24 07:47 Dose: 100 mg Documented By: KAYLI Docusate Sodium (Docusate Sodium 100 Mg Capsule) 100 mg PO BID [facility] Last Admin: 02/09/24 07:47 Dose: Not Given Documented By: KAYLI Non-Admin Reason: Patient Refused Enoxaparin Sodium (Enoxaparin Sodium 40 Mg/0.4 Ml Syringe) 40 mg SUBCUT Q24H [facility] Last Admin: 02/08/24 13:02 Dose: 40 mg Documented By: JOHNY Guaifenesin/Codeine Phosphate (Guaifen/Codeine Sf 200/20/10ml 10 Ml Liquid) 10 ml PO Q4H PRN PRN Reason: Cough Last Admin: 01/29/24 23:09 Dose: 10 ml Documented By: ROSENDO Piperacillin Sod/Tazobactam (Sod 3.375 gm/ Sodium Chloride) 50 mls @ 100 mls/hr IV Q6H [facility] Last Admin: 02/09/24 06:34 Dose: 100 mls/hr Documented By: YAN Doxycycline Hyclate 100 mg/ (Sodium Chloride) 250 mls @ 166.67 mls/hr IV Q12H [facility] Last Infusion: 02/09/24 03:15 Dose: Infused Documented By: YAN Magnesium Hydroxide (Milk Of Magnesia 30 Ml Oral.Susp) 30 ml PO DAILY PRN PRN Reason: Constipation Melatonin (Melatonin 3 Mg Tablet) 6 mg PO BEDTIME PRN PRN Reason: Insomnia Last Admin: 02/05/24 20:15 Dose: 6 mg Documented By: BRAYDEN Ondansetron HCl (Ondansetron Hcl 4 Mg/2 Ml Vial) 4 mg IVPUSH QID PRN PRN Reason: Nausea Oxycodone HCl (Oxycodone Hcl Immed Release 5 Mg Tablet) 5 mg PO Q6H PRN PRN Reason: Pain, Moderate(Pain Scale 4-6) Last Admin: 02/09/24 06:33 Dose: 5 mg Documented By: YAN Sodium Chloride (0.9 % Sodium Chloride Flush 3 Ml Syringe) [facility] Last Admin: 02/09/24 07:46 Dose: 3 ml Documented By: KAYLI Triamterene/Hydrochlorothiazide (Triamterene/Hctz 37.5/25 Tablet) 1 tab PO DAILY [facility]; Protocol Last Admin: 02/09/24 07:47 Dose: 1 tab Documented By: KAYLI Labs 02/08/24 08:01 02/01/24 08:37 Labs: Laboratory Results - last 24 hr 02/08/24 02/08/24 08:01 13:05 MCV 89.2 MCH 30.9 MCHC 34.6 RDW 15.5 Plt Count 635 H MPV 9.2 L Immature Gran % (Auto) 1.2 H Neut % (Auto) 68.5 Lymph % (Auto) 15.6 L [place] % (Auto) 10.9 Eos % (Auto) 3.2 Baso % (Auto) 0.6 Lymph # (Auto) 2.2 [place] # (Auto) 1.6 H Eos # (Auto) 0.5 H Baso # (Auto) 0.1 Abs Immat Gran (auto) 0.17 H Absolute Neuts (auto) 9.8 H Absolute Nucleated RBC 0.000 Nucleated RBC % (auto) 0.0 Smear Tech's Comments VERIFIED Stool Occult Blood NEGATIVE Procedures Date of Service Date of Service: 02/09/24 Progress Note: A&P Assessment and plan (1) Ruptured appendicitis: Status: Acute (2) S/P laparoscopic appendectomy: Status: Acute Plan 73-year-old male status post ruptured appendicitis, laparoscopic appendectomy with washout. Subsequently developed abscess which was drained by IR [address] not red at the time of this dictation however appears much improved with minimal intraperitoneal fluid collection. Lung appears improved as well. WBC is improving as well. WILLAM removed yesterday in the site is clean today. Plan discharge to home today with oral antibiotics as recommended by hospitalist team. He will follow up in the office in approximately 1 week. Time Spent With Patient Time: Total time managing care of this patient today ____ minutes. Quality Stroke Does the patient have a stroke diagnosis?: No VTE Prior VTE?: No VTE Risk Level:: Surgical - moderate VTE Device Contraindication: N/A - Device Ordered VTE Drug Contraindication: N/A - Med Ordered
--- NOTE | 2024-02-09 09:47 | MHC.CM.PN ---
Second IMM given 02/08. Pt is medically cleared for discharge home self-care, pts will transport him home.
--- NOTE | 2024-02-09 11:16 | P.PNIM_ITS ---
Subjective Subjective Date of Service: 02/09/24 Interval History: abd pain improved. and leucocytosis seems improving Review of Systems no new c/o Physical Exam 2 Vital Signs: Vital Signs: Last Vital Signs Temp 98.2 F 02/09/24 07:36 Pulse 71 02/09/24 07:36 Resp 18 02/09/24 07:36 BP 133/84 02/09/24 07:36 Pulse Ox 92 02/09/24 07:36 O2 Del Method Room Air 02/09/24 07:36 O2 Flow Rate 1.5 02/07/24 04:00 FiO2 50 01/27/24 19:52 BMI result Body Mass Index 33.1 General: AO X 3, no acute distress Resp: air entery fair , no rales or wheezing CVS: S1,S2,RRR GI: tender around incisions, has drain on right side of abd. Skin: No rash Neuro: motor grossly intact Psych: appropriate affect. Objective Data Active Medications Atorvastatin Calcium (Atorvastatin Calcium 80 Mg Tablet) 80 mg PO BEDTIME [facility] Last Admin: 02/08/24 21:46 Dose: 80 mg Documented By: YAN Calcium Carbonate (Calcium Carbonate 750 Mg Tab.Chew) 750 mg PO Q4H PRN PRN Reason: Heartburn Cilostazol (Cilostazol 100 Mg Tablet) 100 mg PO DAILY [facility] Last Admin: 02/09/24 07:47 Dose: 100 mg Documented By: KAYLI Docusate Sodium (Docusate Sodium 100 Mg Capsule) 100 mg PO BID [facility] Last Admin: 02/09/24 07:47 Dose: Not Given Documented By: KAYLI Non-Admin Reason: Patient Refused Enoxaparin Sodium (Enoxaparin Sodium 40 Mg/0.4 Ml Syringe) 40 mg SUBCUT Q24H [facility] Last Admin: 02/08/24 13:02 Dose: 40 mg Documented By: JOHNY Guaifenesin/Codeine Phosphate (Guaifen/Codeine Sf 200/20/10ml 10 Ml Liquid) 10 ml PO Q4H PRN PRN Reason: Cough Last Admin: 01/29/24 23:09 Dose: 10 ml Documented By: ROSENDO Piperacillin Sod/Tazobactam (Sod 3.375 gm/ Sodium Chloride) 50 mls @ 100 mls/hr IV Q6H [facility] Last Infusion: 02/09/24 07:54 Dose: Infused Documented By: KAYLI Doxycycline Hyclate 100 mg/ (Sodium Chloride) 250 mls @ 166.67 mls/hr IV Q12H [facility] Last Infusion: 02/09/24 03:15 Dose: Infused Documented By: YAN Magnesium Hydroxide (Milk Of Magnesia 30 Ml Oral.Susp) 30 ml PO DAILY PRN PRN Reason: Constipation Melatonin (Melatonin 3 Mg Tablet) 6 mg PO BEDTIME PRN PRN Reason: Insomnia Last Admin: 02/05/24 20:15 Dose: 6 mg Documented By: BRAYDEN Ondansetron HCl (Ondansetron Hcl 4 Mg/2 Ml Vial) 4 mg IVPUSH QID PRN PRN Reason: Nausea Oxycodone HCl (Oxycodone Hcl Immed Release 5 Mg Tablet) 5 mg PO Q6H PRN PRN Reason: Pain, Moderate(Pain Scale 4-6) Last Admin: 02/09/24 06:33 Dose: 5 mg Documented By: YAN Sodium Chloride (0.9 % Sodium Chloride Flush 3 Ml Syringe) 3 ml IVFLUSH QSHIFT [facility] Last Admin: 02/09/24 07:46 Dose: 3 ml Documented By: KAYLI Triamterene/Hydrochlorothiazide (Triamterene/Hctz 37.5/25 Tablet) 1 tab PO DAILY [facility]; Protocol Last Admin: 02/09/24 07:47 Dose: 1 tab Documented By: KAYLI Labs 02/08/24 08:01 02/01/24 08:37 Labs: Laboratory Results - last 24 hr 02/08/24 13:05 Stool Occult Blood NEGATIVE Assessment and Plan (1) S/P laparoscopic appendectomy: Status: Acute (2) Respiratory failure with hypoxia: Status: Acute Plan 73 yo male with a pmhx significant for HTN, CAD, mild stage 1 COPD and PVD, who presented to the ED this morning with abd pain and nausea, found to have sepsis secondary to a perforated appendix, now s/p lap appy and having post op acute respiratory failure with hypoxia requiring high flow O2. s/p lap appy- plan per surgery has leucocytosis improving tachycardia due to pain /anxiety -not due to sepsis , no fevers ct abd as per surgery -possible subhepatic abcess s/p drainage on 02/02/24. abcess cultures from 02/01 : ecoli ct abd done -reviewed by surgery alice drain out continue Zosyn. acute respiratory failure -suspect post op atelectasis an PNA - CT chest no PE but PNA -O2 requirement is better, wean off as jarocho -continue using incentive spirometry received Doxy + Zosyn at least 10 days . stage 1 COPD - no acute exacerbation - no wheezing on exam -inhalers PRN HTN- continue triamterene-hctz, monotor potassium Hypokalemia--resolved PAD/CAD- continue cilostazol, statin lovenox for dvt prophylaxis Will continue to follow for now Quality Stroke Does the patient have a stroke diagnosis?: No VTE Prior VTE?: No VTE Risk Level:: Surgical - moderate VTE Device Contraindication: N/A - Device Ordered VTE Drug Contraindication: N/A - Med Ordered
[2024-02-09 11:36] VITALS: BP 128/92; PULSE 90; RESP 17; TEMP 36.3; O2SAT 95
[2024-02-09] MEDS: Enoxaparin Sodium 40 MG/0.4 ML SYRINGE SUBCUT (12:15)
[2024-02-09] MEDS: Amoxicillin/Potassium Clav 875 MG TABLET PO (12:15)
--- NOTE | 2024-02-09 14:44 | P.DS_ITS ---
DS: Providers Provider Date of Service: 02/09/24 Date of admission: 01/27/24 08:57 Date of discharge: 02/09/24 Primary care physician: Anupam Shaw MD Attending physician on admission: Gentry Pham Consults: 01/27/24 12:35 Consult to Hospitalist Routine Comment: Consulting Provider: [facility] [place] [place] Hospitalists Reason For Exam: desaturation, frequent PVCs, perforated appy Attending physician on discharge: Gentry Pham DS: Diagnosis Discharge Diagnosis (1) S/P laparoscopic appendectomy: Status: Acute (2) Respiratory failure with hypoxia: Status: Acute DS: Summary Hospital Course Hospital Course: HPI AT ADMISSION: Matias Bryant is a 73 year old male presenting with complaints of abdominal pain in the right lower quadrant. The pain began 48 hours ago and was located in the lower abdomen. He was seen in the walk-in clinic yesterday and was told he had abdominal bloating. He was given a stool softener and was able to have a bowel movement with no improvement in his pain. The pain is noted constantly with increased severity with walking. Denies a previous history of similar symptoms. He denied fever or chills but did report nausea with dry heaving. He presented to the emergency department and was found to have a rigid abdomen. WBC is markedly elevated at 28,000. CT abdomen and pelvis revealed a distended appendix with fluid surrounding the appendix suggestive of a perforation. HOSPITAL COURSE: He was admitted to the surgical service for further treatment of the perforated appendicitis. It was recommended to proceed with a laparoscopic or possible open appendectomy. He was added onto the operative schedule that today. On 01/27/24, laparoscopic appendectomy was performed by Dr. Pham without immediate complications. He was found to have extensive purulent fluid noted within the abdomen involving the right lower quadrant and left lower quadrant with surrounding phlegmon and peritonitis consistent with perforated appendicitis. The patient tolerated the procedure well but had a slow recovery course. He was kept inpatient for observation and IV abx for the perforated appendicitis. He had post operative acute respiratory failure with hypoxia requiring high flow O2 thought secondary to atelectasis. He initially did well but again O2 requirements increased again and chest CTA was performed which showed no PE but PNA. Doxycycline was added. His oxygen requirements gradually improved. His diet was advanced. His activity was increased. He had a persistent leukocytosis and repeat CT scan was performed which showed moderate pleural effusion, subhepatic fluid collection. Due to persistent leukocytosis, IR drainage was performed of this fluid collection and drain was left in place. His WBC count slowly downtrended. He was weaned off supplemental oxygen. Repeat CT scan was obtained which showed improvement of the pleural effusion and of his intraabdominal collections. His drain had scant serosanguineous appearing output and was removed. On the day of discharge, he was tolerating solid diet without nausea or vomiting, he had minimal pain and had good GI function. He was ambulating without difficulty. He was hemodynamically stable with a benign abd and clean incisions. He felt ready for discharge. Status at Discharge Functional status at discharge: independent ambulation Overall status at discharge: patient is progressing back to baseline Time Attestation Discharge Coordination Time (in mins): 50 Quality: Safe Use of Opioids Does Pt have an Active Cancer Diagnosis on the Problem List?: No Quality: Stroke Does the patient have a stroke diagnosis?: No Physical Exam Vital Signs: Vital Signs: Last Vital Signs Temp 97.4 F 02/09/24 11:36 Pulse 90 02/09/24 11:36 Resp 17 02/09/24 11:36 BP 128/92 H 02/09/24 11:36 Pulse Ox 95 02/09/24 11:36 O2 Del Method Room Air 02/09/24 11:36 O2 Flow Rate 1.5 02/07/24 04:00 FiO2 50 01/27/24 19:52 BMI result Body Mass Index 33.1 Const: General: comfortable, no acute distress and alert Orien tation/consciousness: patient oriented x3 Resp: Effort & Inspection: normal respiratory effort, able to speak in complete sentences and no respiratory distress GI: Inspection: No distended and Yes incision (clean incisions ) Palpation (GI): Soft to palpation and no guarding Skin: General skin exam: no rashes or lesions noted Neuro: General: patient oriented x3 and moves all extremities DS: Data Data Completed and Pending Completed studies during hospitalization [Text1]: 01/27/24 11:40 Surgical [PTH] Routine Labeled appendix, right side , appendectomy: Acute gangrenous appendicitis, extending to the proximal margin, with near perforation. Discharge Plan Discharge Anticipated Discharge Date/Time: 01/31/24 11:55 Patient Disposition: Home, Self-Care Discharge Diagnosis: acute appendicitis, s/p laparoscopic appendectomy, PNA and pleural effusion Referrals: Anupam Shaw MD [Primary Care Provider] - 1 Week Gentry Pham MD [Physician] - 1 Week Discharge Medications: New docusate sodium [Colace] 100 mg capsule 100 mg PO BID Qty: 20 0RF oxycodone 5 mg tablet 5 mg PO Q4H PRN (Reason: pain (scale score 7-10)) Qty: 24 0RF Rx Instructions: Partial Fill upon patient request. amoxicillin-pot clavulanate 875-125 mg tablet 1 tab PO BID Qty: 13 0RF Continued cilostazol 100 mg tablet 100 mg PO DAILY atorvastatin 80 mg tablet 80 mg PO BEDTIME alendronate 70 mg tablet 70 mg PO QWEEK sildenafil 100 mg tablet 100 mg PO DAILY PRN (Reason: Erectile Dysfunction) triamterene-hydrochlorothiazid 37.5-25 mg tablet 1 tab PO DAILY fluticasone propionate 50 mcg/actuation spray,suspension 1 spray intranasal DAILY Discharge Orders: Discharge Order (Routine); Ordered 02/09/24 Ordered By: Gentry Pham Diet: Advance to usual diet Activity on Discharge: No heavy lifting Stand Alone Forms: Patient Portal Discharge page Print Language: [place] Activity Restrictions/Additional Instructions: If the incision area is tender, you may apply an ice pack for short intervals (No more than 20 minutes on, followed by at least 20 minutes off). Do not apply heat. Do not use creams, lotions, or topical antibiotics. Ok to shower. You have steri strips (small white cloth strips) covering your incision- these will fall off ~1 week. No heavy lifting (>10lbs) or strenuous activity! Take Tylenol Extra-strength 1-2 tabs every 6 hours for the first day, then as needed. Oxycodone every 6-8 hours as needed for pain. Colace 100 mg every day as needed for constipation. Dry dressing to drain site. Follow up in office with Dr. Pham in 1 week. ([phone]) Call Your Doctor If: -Your temperature exceeds 101.5? F -You experience excessive pain or swelling -You have an unexpected reaction to medication -You have excessive bleeding -You experience continued vomiting/nausea -Your incision begins to separate -Your incision shows signs of infection such as increased redness, swelling, excessive pain, drainage (light blood or clear fluid is normal) or heat Care Plan Goals: Return to baseline health and resume normal activities following recovery period. Health Concerns: acute perforated appendicitis sepsis hypoxia Plan of Treatment: s/p laparoscopic appendectomy antibiotics f/u in office in 1 week Assessment: Doing well post op. Discharge Date/Time: 02/09/24 13:55
== END 2024-02-09 13:55 | disposition home or self-care (01) | DRG 397 ==
LOC: HO.ED 08:41 → HO.SSS 08:47 → HO.SSSA 09:09 → HO.IMC 14:30
PROVIDERS: Internal Medicine; Physician Assistant; Physician Assistant Medical; Physician Assistant Surgical; Student in an Organized Health Care Education/Training Program; Admitting Provider Surgery; Emergency Provider Emergency Medicine; PCP Internal Medicine; Visit Provider Surgery
PROC: 0DTJ4ZZ Resection of Appendix, Percutaneous Endoscopic Approach (ICD-10-PCS; CPT 44970; principal; 2024-01-27 10:30)
DX: K35.32 Acute appendicitis with perforation, localized peritonitis, and gangrene, without abscess (principal); J95.821 Acute postprocedural respiratory failure; J95.89 Other postprocedural complications and disorders of respiratory system, not elsewhere classified; J98.11 Atelectasis; K68.11 Postprocedural retroperitoneal abscess; J91.8 Pleural effusion in other conditions classified elsewhere; I25.10 Atherosclerotic heart disease of native coronary artery without angina pectoris; E87.6 Hypokalemia; I49.3 Ventricular premature depolarization; I73.9 Peripheral vascular disease, unspecified; J44.9 Chronic obstructive pulmonary disease, unspecified; I10 Essential (primary) hypertension; Z87.891 Personal history of nicotine dependence; Z79.899 Other long term (current) drug therapy
CPT/HCPCS: 36415; 71045; 71275; 74177; 75989; 80048; 80076; 81001; 82272; 82803; 83605; 83690; 85007; 85025; 85027; 86850; 86900; 86901; 87040; 87070; 87073; 87077; 87186; 87205; 88304; 94640; 99152; 99153; 99285; C1729; J0131; J0696; J1100; J1171; J1650; J2003; J2250; J2270; J2405; J2543; J2704; J2795; J3010; Q9967

== ENCOUNTER → 2024-01-27 06:50 | Outpatient (BNV) | payer OTHER, MEDICARE, SELFPAY | PROVIDERS: Emergency Provider Emergency Medicine; PCP Internal Medicine; Visit Provider Radiology Diagnostic Radiology | DX: R10.9 Unspecified abdominal pain (principal) | CPT/HCPCS: 74177 ==

== ENCOUNTER → 2024-01-27 08:47 | Outpatient (BNV) | payer OTHER, MEDICARE, SELFPAY | PROVIDERS: Emergency Provider Emergency Medicine; PCP Internal Medicine; Visit Provider Surgery | DX: Z90.49 Acquired absence of other specified parts of digestive tract (principal); J96.91 Respiratory failure, unspecified with hypoxia | CPT/HCPCS: 44970; 99024; 99222 ==

== ENCOUNTER 2024-01-27 08:57 | Outpatient (BNV) | payer OTHER, MEDICARE, SELFPAY | END 2024-02-02 09:01 | PROVIDERS: Admitting Provider Surgery; Emergency Provider Emergency Medicine; PCP Internal Medicine; Visit Provider Radiology Diagnostic Radiology | DX: K63.0 Abscess of intestine (principal); J98.11 Atelectasis; Z90.49 Acquired absence of other specified parts of digestive tract | CPT/HCPCS: 74177 ==

== ENCOUNTER → 2024-01-27 08:57 | Outpatient (BNV) | payer OTHER, MEDICARE, SELFPAY | PROVIDERS: Admitting Provider Surgery; Emergency Provider Emergency Medicine; PCP Internal Medicine; Visit Provider Physician Assistant | DX: J96.01 Acute respiratory failure with hypoxia (principal); Z90.49 Acquired absence of other specified parts of digestive tract | CPT/HCPCS: 99222; 99231; 99232; 99499 ==

== ENCOUNTER 2024-02-16 08:29 | Outpatient (AMB) | payer OTHER, MEDICARE, SELFPAY ==
--- NOTE | 2024-02-16 08:31 | MHC.OFFVIS ---
Vital Signs 02/16/24 08:32 Height 5 ft 7 in Weight 184 lb BMI 28.8 BP 113/79 Blood Pressure Location Lt brachial Position Sitting Pulse 99 Intake Visit Reasons: s/p Appendectomy Laparoscopic Intake Note: Patient is seen in office for post op assessment post laparoscopic appendectomy. Pt c/o: reports no complaints at this time. surgery: 01/27/24 Upper Lining Cementer Required: No Accompanied by: Self / Same As Patient Allergies No Known Allergies Allergy (Verified 02/16/24 08:32) Medication List - Last Reconciled 02/16/24 by Gentry Pham MD alendronate 70 mg PO QWEEK amoxicillin-pot clavulanate 875-125 mg 1 tab PO BID atorvastatin 80 mg PO BEDTIME cilostazol 100 mg PO DAILY docusate sodium (Colace) 100 mg PO BID fluticasone propionate 50 mcg/actuation 1 spray intranasal DAILY oxycodone 5 mg PO Q4H PRN sildenafil 100 mg PO DAILY PRN triamterene-hydrochlorothiazid 37.5-25 mg 1 tab PO DAILY HPI Comments Details: 73-year-old male patient returning 1 week following discharge from the hospital following laparoscopic appendectomy for perforated appendicitis. He underwent the procedure on 01/27/2024 and subsequently developed an abscess below the liver requiring IR drainage on 02/02/2024. He was subsequently discharged home on Augmentin and returns today for postop follow-up. [facility] Medical History Peripheral vascular disease Hypertension Surgical History History of laparoscopic appendectomy (01/27/24) Social History Household Members: Spouse Housing: House Do you presently have visiting nurse or other home services: No Alcohol intake: never Patient Tobacco Use Status: Former Tobacco user service: No Physical Exam Const General: no acute distress Nutritional Appearance: well nourished Orientation/consciousness: patient oriented x3 Resp Effort & Inspection: normal respiratory effort, no audible wheezes, no cough and no respiratory distress GI Other: Trocar incisions are clean, dry, and intact Palpation (GI): Soft to palpation, nontender, no guarding and not rigid Neuro General: patient oriented x3 Extrem Other: No edema Assessment & Plan Assessment & Plan (1) Ruptured appendicitis: Code(s): K35.32 - Acute appendicitis with perforation, localized peritonitis, and gangrene, without abscess Category: Medical (2) S/P laparoscopic appendectomy: Code(s): Z90.49 - Acquired absence of other specified parts of digestive tract Category: Surgical Plan Patient is recovering well following perforated appendicitis. His wounds are clean, dry, and intact. He may resume normal activity without restrictions and should follow up as needed. He will follow-up with his primary care regarding a follow-up chest x-ray. Coding Level of Care Code Global (44812) Diagnoses Ruptured appendicitis K35.32 S/P laparoscopic appendectomy Z90.49
[2024-02-16 08:32] VITALS: BP 113/79; PULSE 99; BMI 28.8
== END 2024-02-16 09:05 | disposition home or self-care (01) ==
PROVIDERS: PCP Internal Medicine; Visit Provider Surgery
DX: K35.32 Acute appendicitis with perforation, localized peritonitis, and gangrene, without abscess (principal); Z90.49 Acquired absence of other specified parts of digestive tract
CPT/HCPCS: 99024

== ENCOUNTER → 2024-02-16 08:29 | Outpatient (BNVA) | payer OTHER, MEDICARE, SELFPAY | PROVIDERS: PCP Internal Medicine; Visit Provider Surgery ==

== ENCOUNTER 2024-03-08 11:01 | Outpatient (REF) | payer OTHER, MEDICARE, SELFPAY ==
--- NOTE | ~2024-03-08 | XR_ITS ---
CLINICAL HISTORY: RADIOLOGIC INFILTRATE OF LUNG, OTHER NONSPECIFIC ABNORMAL FINDING OF LUNG 2 view chest Comparison: None Findings: Right middle lobe atelectasis and or infiltrate. Mild peribronchial wall thickening. Cardiomediastinal silhouette is normal. No mediastinal shift or tracheal deviation. Osseous structures intact. Impression: 1. Mild central bronchial wall thickening. 2. Right middle lobe atelectasis and or infiltrate. No priors available for comparison. This document has been electronically signed by: Kaushik Tariq MD on 03/10/2024 11:43:50
[2024-03-08 11:49] LABS: Basophils Absolute Auto 0.1 X10*3/uL (0.0-0.2); Basophils Percent Auto 0.5 % (0-2); Eosinophils Absolute Auto 0.4 X10*3/uL (0.0-0.4); Eosinophils Percent Auto 2.2 % (0-4); Hematocrit 43.9 % (42.0-52.0); Hemoglobin 14.8 g/dl (14.0-18.0); Imm Gran Abs Auto 0.07 X10*3/uL (0.00-0.03); Imm Gran Pct Auto 0.4 % (0.0-0.4); Lymphocytes Absolute Auto 2.8 X10*3/uL (1.2-4.9); Lymphocytes Percent Auto 18.2 % (20-40); MANUAL DIFF FLAG SCAN; Mean Corpuscular HGB Conc 33.7 g/dl (31.0-36.0); Mean Corpuscular Hemoglobin 30.5 pg (27.0-33.0); Mean Corpuscular Volume 90.3 fL (80.0-98.0); Mean Platelet Volume 9.9 fL (9.4-12.4); Monocytes Absolute Auto 1.6 X10*3/uL (0.1-1.2); Monocytes Percent Auto 10.4 % (2-11); Neutrophils Absolute Auto 10.6 x10*3/uL (2.0-8.3); Neutrophils Percent Auto 68.3 % (45-73); Platelet Count 337 X10*3/uL (160-400); Red Blood Count 4.86 X10*6/uL (4.60-5.80); Red Cell Distribution Width 14.5 % (11.0-16.0); SCAN SMEAR FLAG 1; White Blood Count 15.6 X10*3/uL (4.8-10.8)
[2024-03-08 12:11] LABS: SLIDE REVIEW VERIFIED
[2024-03-08 12:25] LABS: Alkaline Phosphatase 132 U/L (39-117); Anion Gap 12 (12-20); Aspartate Amino Transferase 27 U/L (5-37); Bilirubin Total 0.7 mg/dL (0.0-1.0); Blood Urea Nitrogen 15 mg/dL (9-16); Calcium 9.1 mg/dL (8.4-10.2); Carbon Dioxide 22 mmol/L (22-29); Chloride 111 mmol/L (96-108); Cholesterol 212 mg/dL (<200); Estimated Glomerular Filt Rate > 60; Glucose Random 92 mg/dL (60-115); HDL Cholesterol 39 mg/dL (>40); LDL Cholesterol Calculated 141 mg/dL (<100); Potassium 4.2 mmol/L (3.3-5.1); Sodium 141 mmol/L (135-145); Total Protein 7.5 g/dL (6.5-8.0); Triglycerides 164 mg/dL (<150)
[2024-03-08 12:36] LABS: Prostate Specific Antigen 0.54 ng/mL (<0.05-4.0)
[2024-03-08 12:44] LABS: Alanine Aminotransferase 36 U/L (0-40)
== END 2024-03-08 11:02 | disposition home or self-care (01) ==
LOC: HO.XRAY 11:01
PROVIDERS: PCP Internal Medicine; Referring Provider Student in an Organized Health Care Education/Training Program; Visit Provider Internal Medicine
DX: Z00.00 Encounter for general adult medical examination without abnormal findings (principal); R91.8 Other nonspecific abnormal finding of lung field; Z13.6 Encounter for screening for cardiovascular disorders; Z12.5 Encounter for screening for malignant neoplasm of prostate
CPT/HCPCS: 36415; 71046; 80053; 80061; 84153; 85025

== ENCOUNTER → 2024-03-08 11:28 | Outpatient (BNV) | payer OTHER, MEDICARE, SELFPAY | PROVIDERS: PCP Internal Medicine; Referring Provider Student in an Organized Health Care Education/Training Program; Visit Provider Radiology Diagnostic Radiology | DX: J98.11 Atelectasis (principal); R91.8 Other nonspecific abnormal finding of lung field | CPT/HCPCS: 71046 ==

== ENCOUNTER 2024-04-05 12:37 | Outpatient (REF) | payer OTHER, MEDICARE, SELFPAY ==
--- NOTE | ~2024-04-05 | CT_ITS ---
EXAMINATION: CT ABDOMEN AND PELVIS WITH CONTRAST CLINICAL INFORMATION: Right lower quadrant abdominal pain. Tachycardia. History of perforated appendicitis with abscess. COMPARISON: CT dated February 08, 2024. TECHNIQUE: Multidetector volumetric images were obtained from the superior aspect of the liver through the pubic symphysis following administration 85 mL of Omnipaque 350 intravenous contrast. Sagittal and coronal reformatted images were obtained on the technologist's workstation. Oral contrast: No This CT examination was performed using dose optimization techniques as appropriate, variously including the following: *Automated exposure control *Adjustment of mA and/or kV according to patient size (this includes techniques or standardized protocols for targeted exams where dose is matched to indication/reason for exam; i.e. extremities or head) *Use of iterative reconstruction technique. DLP: 420 mGy centimeter. FINDINGS: LUNG BASES: Patchy and confluent pulmonary groundglass with air bronchograms, right middle lobe and anterior right lower lung lobe and lingula. LIVER, GALLBLADDER, AND BILIARY TREE: Liver measures 15 cm. There is a 4 cm patchy enhancing lesion in the peripheral posterior right hepatic lobe. There is a 3 cm well-defined lobulated fluid density in the dome of the right hepatic lobe. There is a faint hypodensity adjacent to the falciform ligament. There is decreased enhancement of the liver parenchyma with respect to the spleen. The portal vein, hepatic veins and intrahepatic portion of the IVC are patent. Gallbladder is contracted with questionable intraluminal isodensity. No pericholecystic fluid collection or gallbladder wall thickening. No intrahepatic or extrahepatic biliary ductal dilatation. PANCREAS: No focal mass. 5 mm hypodensity in the body of the pancreas. No main pancreatic ductal dilatation. No peripancreatic fluid collection. SPLEEN: 7 cm. No focal mass. ADRENAL GLANDS: No nodular lesions. KIDNEYS AND URETERS: No hydronephrosis. Multifocal different sizes less than 2 cm hypodensities throughout the renal parenchyma. No gross renal mass. Normal enhancement of the renal cortex. BLADDER: Fluid-filled. GASTROINTESTINAL TRACT: Abundant stool within the large intestine. Scattered diverticula in the sigmoid colon with a collapsed appearance of the rectosigmoid colon. No intestinal obstruction pattern. Sutures in the medial aspect of the cecum/status post appendectomy. No peripheral enhancing fluid collection in the peritoneal cavity. No pneumoperitoneum. No ascites. ABDOMINAL WALL: Small fat-containing umbilical hernia. LYMPH NODES: Nonspecific prominent lymph nodes, retroperitoneum and mesenteric. VASCULAR: Mixed plaques throughout the descending thoracic aorta, abdominal aorta and iliac arteries with focal stenosis in the infrarenal segment. No aneurysm or dissection. Calcified plaques in the coronary arteries.. PELVIC VISCERA: Punctate calcifications in the normal-sized prostate gland. OSSEOUS STRUCTURES: Syndesmophyte formation sacroiliac joints. Multilevel thoracolumbar spondylosis. No acute fracture or gross listhesis in the axial skeleton. CT/CT abdomen pelvis w IV con IMPRESSION: Diverticular disease, sigmoid colon. Superimposed noncomplicated diverticulitis cannot be excluded. No abscess and/or phlegmon, peritoneal cavity. Atelectasis versus infiltrate, right middle lobe, right lower lung lobe and lingula. Probable hemangioma, posterior right hepatic lobe. Probable hepatic cysts, dome right hepatic lobe. Bilateral renal cysts. Small fat-containing umbilical hernia. Atherosclerosis disease. Coronary artery disease. Questionable 5 mm cyst, body of the pancreas. Fleischner guidelines were followed. Electronically signed by: Klever Em MD 04/05/2024 03:52 PM EST
[2024-04-05] MEDS: Barium Sulfate Oral (Vanilla) 450 ML ORAL.SUSP PO ×2 (15:19)
[2024-04-05] MEDS: iohexoL 350 MG/ML 100 ML INFUS..BTL IV (15:19)
== END 2024-04-05 12:38 | disposition home or self-care (01) ==
LOC: HO.CT 12:37
PROVIDERS: PCP Internal Medicine; Visit Provider Surgery
DX: R10.31 Right lower quadrant pain (principal)
CPT/HCPCS: 74177; Q9967

== ENCOUNTER → 2024-04-05 12:38 | Outpatient (BNV) | payer OTHER, MEDICARE, SELFPAY | PROVIDERS: PCP Internal Medicine; Visit Provider Radiology Diagnostic Radiology | DX: K57.30 Diverticulosis of large intestine without perforation or abscess without bleeding (principal); N28.1 Cyst of kidney, acquired; K42.9 Umbilical hernia without obstruction or gangrene; I25.10 Atherosclerotic heart disease of native coronary artery without angina pectoris; I70.90 Unspecified atherosclerosis | CPT/HCPCS: 74177 ==

== ENCOUNTER 2024-04-28 10:08 | Outpatient (AMB) | payer OTHER, MEDICARE, SELFPAY ==
--- NOTE | 2024-04-28 10:17 | MHC.OFFVIS ---
Vital Signs 04/28/24 10:21 Height 5 ft 7 in Weight 191 lb BMI 29.9 BP 143/67 H Blood Pressure Location Rt brachial Position Sitting Pulse 83 Pulse Oximetry (%) 96 Intake Visit Reasons: elevated HR, abd pain and diarrhea Intake Note: Patient is seen in office abdominal pain, post appendectomy on 01/27/24. Pt c/o: diarrhea since post surgery, no longer has abdominal pain, here for CT scan results Biomedical Engineer Required: No Accompanied by: spo Allergies No Known Allergies Allergy (Verified 04/28/24 10:26) Medication List - Last Reconciled 04/28/24 by Gentry Pham MD alendronate 70 mg PO QWEEK atorvastatin 80 mg PO BEDTIME cilostazol 100 mg PO DAILY docusate sodium (Colace) 100 mg PO BID fluticasone propionate 50 mcg/actuation 1 spray intranasal DAILY oxycodone 5 mg PO Q4H PRN sildenafil 100 mg PO DAILY PRN triamterene-hydrochlorothiazid 37.5-25 mg 1 tab PO DAILY HPI Comments Details: 73-year-old male patient status post laparoscopic appendectomy for a perforated appendicitis on 02/02/2024. He returns today to review his CT findings. He reports persistent diarrhea after taking amoxicillin with clavulanic acid for pneumonia. He denies fever, chills, abdominal pain, nausea or vomiting. He does know mucosa in his stool which is nonbloody. He has been taking Imodium to help with the diarrhea. He denies undergoing a stool evaluation. [facility] Medical History Peripheral vascular disease Hypertension Surgical History History of laparoscopic appendectomy (01/27/24) Social History Household Members: Spouse Housing: House Do you presently have visiting nurse or other home services: No Alcohol intake: never Patient Tobacco Use Status: Former Tobacco user service: No Physical Exam Vital Signs: Last Vital Signs Pulse 83 04/28/24 10:21 BP 143/67 H 04/28/24 10:21 Pulse Ox 96 04/28/24 10:21 BMI result Body Mass Index 29.9 Const General: no acute distress Nutritional Appearance: well nourished Orientation/consciousness: patient oriented x3 Resp Effort & Inspection: normal respiratory effort, no audible wheezes, no cough and no respiratory distress GI Other: Trocar incisions are clean, dry, and intact Palpation (GI): Soft to palpation, nontender, no guarding and not rigid Neuro General: patient oriented x3 Extrem Other: No edema Assessment & Plan Assessment & Plan (1) S/P laparoscopic appendectomy: Code(s): Z90.49 - Acquired absence of other specified parts of digestive tract Category: Surgical (2) Diarrhea: Code(s): R19.7 - Diarrhea, unspecified Category: Medical Qualifiers: Diarrhea type: unspecified type Qualified Code(s): R19.7 - Diarrhea, unspecified Plan 73-year-old male patient status post laparoscopic appendectomy on 02/02/2024 presenting with persistent diarrhea after a course of antibiotics. On examination his wounds are clean and intact. We reviewed his CT abdomen and pelvis which revealed some diverticulosis without diverticulitis. No infectious sources identified. I recommended a stool studies to evaluate for other causes of diarrhea. If this is negative I would recommend GI consultation. Orders: Orders Chymotrypsin, Stool Today R19.7 - Diarrhea, unspecified CDiff Gene PCR Today R19.7 - Diarrhea, unspecified Giardia Ag Stool EIA Today R19.7 - Diarrhea, unspecified Cyclospora & Isospora Stool Today R19.7 - Diarrhea, unspecified Coding Level of Care Code Est Pt Level 3 (08769) Diagnoses S/P laparoscopic appendectomy Z90.49 Diarrhea, unspecified type R19.7 Diarrhea type: unspecified type
[2024-04-28 10:21] VITALS: BP 143/67; PULSE 83; O2SAT 96; BMI 29.9
== END 2024-04-28 10:53 | disposition home or self-care (01) ==
PROVIDERS: PCP Internal Medicine; Visit Provider Surgery
DX: Z90.49 Acquired absence of other specified parts of digestive tract (principal); R19.7 Diarrhea, unspecified
CPT/HCPCS: 99213

== ENCOUNTER → 2024-04-28 10:08 | Outpatient (BNVA) | payer OTHER, MEDICARE, SELFPAY | PROVIDERS: PCP Internal Medicine; Visit Provider Surgery ==

== ENCOUNTER 2024-04-30 09:34 | Outpatient (REF) | payer OTHER, MEDICARE, SELFPAY ==
[2024-04-30 12:01] LABS: CDiff Gene PCR POSITIVE (Negative)
[2024-04-30 13:29] LABS: CDIFF Internal ctrl Dots and bkg OK (V); CDiff Toxin Positive (Negative)
[2024-05-05 00:39] LABS: Chymotrypsin, Stool 30.8 U/g (2.3-51.4)
== END 2024-04-30 09:35 | disposition home or self-care (01) ==
LOC: HO.LNP 09:34
PROVIDERS: Visit Provider Surgery
DX: R19.7 Diarrhea, unspecified (principal)
CPT/HCPCS: 87015; 87207; 87324; 87329; 87493

== ENCOUNTER 2024-11-23 08:29 | Outpatient (REF) | payer MEDICARE, SELFPAY ==
--- OUTSIDE RECORDS SUMMARY | 2024-11-23 09:43 | XMS_ITS | Clinical Summary ---
Author Organization [facility] Address [address] [address] Phone Care Team Providers Care Single Needle Operator Name Role Phone AlexAntoine kamara Primary Care Provider [phone] AlexAntoine kamara Unavailable Allergies No known active allergies Medications aspirin 81 MG EC tablet Take 81 mg by mouth daily. Active atorvastatin (LIPITOR) 80 MG tablet 80 mg. Active chlorthalidone (HYGROTON) 25 MG tablet chlorthalidone 25 mg tablet TAKE 1 TABLET BY MOUTH EVERY DAY Active cilostazol (PLETAL) 100 MG tablet cilostazol 100 mg tablet Active alendronate (FOSAMAX) 70 MG tablet alendronate 70 mg tablet TAKE 1 TABLET BY MOUTH EVERY WEEK Active albuterol (PROAIR HFA) 90 mcg/actuation inhaler ProAir HFA 90 mcg/actuation aerosol inhaler 1-2 puffs every 4 to 6 hours prn Active benzoyl peroxide 10 % Crea benzoyl peroxide 10 % topical cream APPLY A THIN LAYER TO THE AFFECTED AREA(S) BY TOPICAL ROUTE ONCE DAILY Active clindamycin (CLINDAGEL) 1 % gel clindamycin 1 % topical gel Active varenicline (CHANTIX) 1 mg tablet Active fluticasone propion-salmet Brooke (WIXELA INHUB) 250-50 mcg/dose DISKUS Wixela Inhub 250 mcg-50 mcg/dose powder for inhalation Active tazarotene (AVAGE) 0.1 % cream tazarotene 0.1 % topical cream Active cyanocobalamin , vitamin B-12, 100 MCG tablet Take 100 mcg by mouth daily. Active sildenafiL (VIAGRA) 100 mg tablet Take 1 tablet by mouth every morning. Active amLODIPine (NORVASC) 5 MG tablet Take 5 mg by mouth daily. Active fluticasone propionate (FLONASE) 50 mcg/actuation nasal spray 1 spray as needed. Active triamterene-hy droCHLOROthiaz beth (DYAZIDE) 37.5-25 mg per capsule Take 1 capsule by mouth every morning. Active Active Problems No known active problems Encounters Date Type Department Care Team Description 10/20/2024 1:30 PM EDT - 10/20/2024 2:00 PM EDT Surgery [facility] Endoscopy Admitting Dept Virtual Department [address] [place] [address] Christopher Catherine MD COLONOSCOPY 10/20/2024 1:22 PM EDT Anesthesia Event [facility] Endoscopy Admitting Dept Virtual Department [address] [place] [address] Caroline Bello MD 10/20/2024 12:16 PM EDT - 10/20/2024 2:30 PM EDT Hospital Encounter [facility] Endoscopy Admitting Dept Virtual Department [address] [place] [address] Christopher Catherine MD Discharge Disposition: Home or Self Care 10/20/2024 Procedure Pass [facility] Endoscopy Admitting Dept Virtual Department [address] [place] [address] 10/14/2024 4:15 PM EDT Pre-Admission Testing Pre Procedure Evaluation [address] [place] [address] Christopher Catherine MD from Last 3 Months Social History Tobacco Use Types Packs/Day Years Used Date Smoking Tobacco: Former Cigarettes 0 03/1990 - 03/2020 Smokeless Tobacco: Never Tobacco Cessation:Counseling Given: Not Answered Comments:using Chantix Alcohol Use Standard Drinks/Week Comments Not Currently 0 (1 standard drink = 0.6 oz pur e alcohol) Education Answer Date Recorded Are you interested in more education? Not on gurinder e 07/04/2022 Are you concerned about learning? Not on file 07/04/2022 No 07/04/2022 No 07/04/2022 Digital Access Answer Date Recorded No 08/04/2022 No 08/04/2022 Reliable internet access at home? Not on file 08/04/2022 Device with a working camera? Not on file Intimate Partner Violence Answer Date R ecorded Are you denied basic needs s uch as food, clothing, or medical care? No 10/20/2024 In the past 12 months have y ou been in a relationship with a person who hurts, threatens, or tries to control you? No 10/20/2024 Are you denied basic needs s uch as food, clothing, or medical care? No 10/20/2024 In the past 12 months have y ou been in a relationship with a person who hurts, threatens, or tries to control you? No 10/20/2024 Sex and Gender Information Value Date Recorded Sex Assigned at Not on file Legal Sex Male 9:59 PM EDT Gender Identity Not on file Sexual Orientation Not on file Last Filed Vital Signs Vital Sign Reading Time Taken Comments Blood Pressure 134/91 10/20/2024 2:20 PM EDT Pulse 76 10/20/2024 2:20 PM EDT Temperature 36.5 C (97.7 F) 10/20/2024 2:20 PM EDT Respiratory Rate 20 10/20/2024 2:20 PM EDT Oxygen Saturation 97% 10/20/2024 2:20 PM EDT Inhaled Oxygen Concentration - - Weight 86.2 kg (190 lb) 10/17/2024 2:53 PM EDT Height 170.2 cm (5' 7 ) 10/24/2020 2:30 PM EDT Body Mass Index 29.76 10/24/2020 2:30 PM EDT Plan of Treatment Health Maintenance Due Date Last Done Comments DEPRESSION SCREENING 1964 SMOKING Hx and SMOKELESS TOBACCO SCREENING 1965 COLOGUARD 1997 FIT TEST 1997 FOBT 1997 SIGMOIDOSCOPY 1997 VIRTUAL COLONOSCOPY 1997 ZOSTER VACCINES (1 of 2) 2002 ABDOMINAL AORTIC ANEURYSM (AAA) SCREENING 2017 POTASSIUM LEVEL 02/13/2020 02/12/2019, 01/07, 02/10/2017 Adult Td,Tdap Booster 02/26/2023 02/26/2013 INFLUENZA VACCINE (#1) 2024 4, 01/14/2022, 01/07/2021, Additional history exists COVID-19 VACCINE ( season) 2024 12/01/2023, 01/14/2022, 06/26/2021, Additional history exists RSV VACCINE (1 - 1-dose 75+ series) 05/28/2027 LIPID PANEL 05/13/2028 05/14/2023, 04/09, 11/14/2022, Additional history exists COLONOSCOPY 10/20/2034 10/20/2024, 10/29/2020 COLORECTAL CANCER SCREENING 10/20/2034 HEPATITIS C SCREENING Completed 02/12/2019, 019 PNEUMOCOCCAL VACCINES (50+ years) Completed 01/07/2021, 01/03/2018, 12/21/2015, Additional history exists HEPATITIS A VACCINES Aged Out No long er eligible based on patient's age to complete this topic HIB VACCINES Aged Out No longer eligi ble based on patient's age to complete this topic MENINGOCOCCAL VACCINES (ACWY) Aged Out No longer eligible based on patient's age to complete this topic MENINGOCOCCAL VACCINES (B) Aged Out N o longer eligible based on patient's age to complete this topic Medical Devices Not on file Procedures Procedure Name Priority Date/Time Associated Diagnosis Comments CA COLSC FLX W/RMVL OF TUMOR POLYP LESION SNARE TQ 10/20/2024 1:31 PM EDT colon Special Needs Hx Difficult IV access CA COLONOSCOPY W/BIOPSY SINGLE/MULTIPLE 10/20/2024 1:31 PM EDT colon Special Needs Hx Difficult IV access CA COLONOSCOPY FLX DX W/COLLJ SPEC WHEN PFRMD 10/20/2024 1:31 PM EDT colon Special Needs Hx Difficult IV access ENDOSCOPY, COLON 10/20/2024 1:16 PM EDT ANATOMIC PATHOLOGY Routine 10/20/2024 12 :00 AM EDT LIPID PANEL Routine 02/12/2019 9:31 AM EST Routine general medical examination at a [facility] care facility HEPATITIS C ANTIBODY, QUALITATIVE Routine 02/12/2019 9:31 AM EST Routine general medical examination at a health care facility COMPREHENSIVE METABOLIC PANEL Routine 02/12/2019 9:31 AM EST Routine general medical examination at a [facility] facility from Last 3 Months or Most Recently Relevant to Health Maintenance Results * ENDOSCOPY, COLON (10/20/2024 1:16 PM EDT) Narrative Transcriptions Christopher Catherine MD - 10/20/2024 1:16 PM EDT [facility] Patient Name: Matias Bryant Attending MD:: CHRISTOPHER CATHERINE MD, Procedure Date: 10/20/2024 1:16 PM Date of : 1950 Age: 74 Admit Type: Outpatient Gender: Male Room: [place] [address] Referring MD: ANTOINE ECHAVARRIA DO Exam Type: Colonoscopy Indications: High risk colon cancer surveillance: Personalhistory of colonic polyps Medications: Monitored Anesthesia Care Procedure: Informed consent was obtained from the patientafter discussion of the indications, limitations, alternatives, benefits, and risks of the procedure. Risks specifically discussed include but are not limited to medication reactions, missed lesions, bleeding, perforation, or the need for emergent surgery. Throughout the procedure, the patient's blood pressure, pulse, end-tidal CO2, and oxygensaturations were monitored continuously. The Olympus adult variable colonoscope [id number] #1 was introduced through the anus and advanced to the terminal ileum. The colonoscopy was performedwithout difficulty. The patient tolerated the procedurewell. The quality of the bowel preparation was good. Anatomical landmarks were photographed. Complications: No immediate complications. Estimated blood loss:None. Findings: The perianal and digital rectal examinations were normal. Multiple small-mouthed diverticula were found inthe sigmoid colon and descending colon. Five sessile polyps were found in the sigmoid colon and cecum. The polyps were 3 to 6 mm in size. These polyps were removed with a cold snare. Resectionand retrieval were complete. The rectum, recto-sigmoid colon, descending colon, splenic flexure, transverse colon, hepatic flexure, ascending colon, appendiceal orifice, ileocecalvalve, ileum, rectum (on retroflexion) and ascending colon (on retroflexion) appeared normal. Impression: - Diverticulosis in the sigmoid colon and in the descending colon. - Five 3 to 6 mm polyps in the sigmoid colon and in the cecum, removed with a cold snare. Resected and retrieved. - The rectum (on retroflexion), ascending colon (on retroflexion), rectum, descending colon, splenic flexure, transverse colon, hepatic flexure,ascending colon, recto-sigmoid colon, ileocecal valve, appendiceal orifice and terminal ileum arenormal. Recommendation: - Discharge patient to home. - High fiber diet. - Continue present medications. - Await pathology results. - Repeat colonoscopy in 3 years for surveillance. - You have diverticulosis so please eat a high fiber diet. CHRISTOPHER CATHERINE MD 10/20/2024 2:00:58 PM This report has been signed electronically. Number of Addenda: 0 Note Initiated On: 10/20/2024 1:16 PM Procedure Code(s): --- Professional --- 70076, Colonoscopy, flexible; with removal of tumor(s), polyp(s), or other lesion(s) by snare technique --- Technical --- 59657, Colonoscopy, flexible; with removal of tumor(s), polyp(s), or other lesion(s) by snare technique Diagnosis Code(s): --- Professional --- Z86.010, Personal history of colonic polyps D12.5, Benign neoplasm of sigmoid colon D12.0, Benign neoplasm of cecum K57.30, Diverticulosis of large intestine without perforation or abscess without bleeding --- Technical --- Z86.010, Personal history of colonic polyps D12.5, Benign neoplasm of sigmoid colon D12.0, Benign neoplasm of cecum K57.30, Diverticulosis of large intestine without perforation or abscess without bleeding CPT copyright 2021 [employer]. All rights reserved. The codes documented in this report are preliminary and upon data coder operator reviewmay be revised to meet current compliance requirements. Procedure Date: 10/20/2024 1:16:[address] [place] [address] us Antoine A Bigda DO GI PROCEDURE ORDERABLES Final Re sult * Anatomic Pathology (10/20/2024 12:00 AM EDT) 10/20/2024 10/20/2024 2:4 6 PM EDT Narrative SEE NARRATIVE - 10/21/2024 2:43 PM EDT [address] [address] Director Center: Michael Price MD Surgical Pathology Report FINAL PATHOLOGIC DIAGNOSIS: CECUM, POLYP, AND SIGMOID COLON, POLYPS X 4, COLD SNARE REMOVAL: Adenomatous polyp fragments. Electronically Signed Out By Silvia Bowers MD By his/her signature above, the pathologist listed as making the Final Diagnosis certifies that he/she has personally reviewed this case and confirmed or corrected the diagnosis. CLINICAL HISTORY High risk colon cancer surveillance: Personal history of colonic polyps SPECIMENS SUBMITTED: A: CECUM, POLYP, AND SIGMOID COLON, POLYPS X 4 GROSS DESCRIPTION CECUM, POLYP, AND SIGMOID COLON, POLYPS X 4: Received in formalin is a 1.0 x 1.0 x 0.4 cm aggregate of irregular jacobson-pink mucosal tissue fragments which is submitted in toto in a single cassette labeled A1. Grossed by: ZOFIA Dinh, PADMINI([facility]) [id number] 10/20/2024 Grossing Staff: [id number] Patient Name: MATIAS BRYANT : 1950 (Age: 74) Sex: M [facility]: 10/20/2024 Date of Reported: 10/21/2024 14:43 Results To: Christopher Catherine MD, BS Antoine Echavarria DO, BS us Christopher Catherine MD PATHOLOGY ORDERABLES Final R esult SEE NARRATIVE * Comprehensive metabolic panel (02/12/2019 9:31 AM EST) SODIUM 141 133 - 146 mmol/L [facility] POTASSIUM 3.7 3.3 - 5.1 mmol/L [facility] CHLORIDE 103 96 - 108 mmol/L [facility] CO2 24 21 - 35 mmol/L [facility] BUN 13 6 - 19 mg/dL [facility] CREATININE 0.90 0.5 - 1.5 mg/dL [facility] GLUCOSE 96 70 - 99 mg/dL [facility] ALBUMIN 4.4 3.9 - 4.8 g/dL [facility] TOTAL PROTEIN 7.6 6.5 - 8.0 g/dL [facility] CALCIUM 9.8 8.4 - 10.3 mg/dL [facility] ALKALINE PHOSPHATASE 90 39 - 117 U/L [facility] TOTAL BILIRUBIN 0.4 0.0 - 1.2 mg/dL [facility] AST 24 0 - 37 U/L [facility] ALT 24 0 - 40 U/L [facility] GLOBULIN 3.2 1 - 4.8 g/dL [facility] EGFR 89 >59 mL/min/1.7 3m2 [facility] Comment:If patient is black, multiply result by 1.159. Estimated glomerular filtration rate calculated using the CKD-EPI equation. ANION GAP 18 10 - 20 mmol/L [facility] Blood 02/12/2019 9:31 AM EST 02/12/2019 9:34 AM EST us Antoine Echavarria DO LAB BLOOD ORDERABLES Final Resul t [address] [address] * Hepatitis C antibody, qualitative (02/12/2019 9:31 AM EST) HCV NON-REACTIV E NON-REACTI VE [facility] Blood 02/12/2019 9:31 AM EST 02/12/2019 9:34 AM EST us Antoine A Bigda DO LAB BLOOD ORDERABLES Final Resul t Performing Organization Address City/[facility] Co de Phone Number [address] [address] * Lipid panel (02/12/2019 9:31 AM EST) HDL 42 mg/dL [facility] Comment: Interpretation <40 mg/dL: Low HDL cholesterol (major risk factor for CHD) Greater than or equal to 60 mg/dL: High HDL cholesterol ( negative risk factor for CHD) HDL - cholesterol is affected by a number of factors, e.g. smoking, excerise, hormones, sex and age. CHOLESTEROL 176 0 - 240 mg/dL [facility] TRIGLYCERIDES 94 30 - 160 mg/dL [facility] LDL 115 50 - 129 mg/dL [facility] Comment: LDL levels in terms of risk for coronary heart disease: <100 mg/dL: Optimal 100-129 mg/dL: Near or above optimal 130-159 mg/dL: Borderline high 160-189 mg/dL: High >190 mg/dL: Very High CARDIAC RISK RATIO 4.2 3.4 - 5.0 C [facility] Blood 02/12/2019 9:31 AM EST 02/12/2019 9:34 AM EST us Antoine A Bigda DO LAB BLOOD ORDERABLES Final Resul t Performing Organization Address [facility] Co de Phone Number [address] [address] from Last 3 Months or Most Recently Relevant to Health Maintenance Insurance MEDICARE PART A & B [facility] MEDICARE HMO BLUE REPLACEMENT Member Subscriber Plan / Payer (Ef fective 2014-Present) Name:ChemoMatias tuttle Relation to Subscriber:Self Name:ChemoMatias tuttle Payer ID:[id number] (NAIC) Type:Medicare Address: [id number] [place] [address] MEDICARE PART A & B Member Subscriber Plan / Payer (Ef fective 2014-Present) Name:Chemomarry Matias Member ID:[id number] Relation to Subscriber:Self Name:Matias Bryant Subscriber ID:[id number] Payer ID:[id number] Group ID:Not on file Type:Medicare Address: [employer] [address] [place] [address] [facility] MEDICARE HMO BLUE REPLACEMENT Member Subscriber Plan / Payer (Ef fective 2014-Present) Name:Manny Matias Relation to Subscriber:Self Name:ChemoMatias tuttle Payer ID:[id number] (NAIC) Type:Medicare Address: [id number] [place] [address] MEDICARE PART A & B Member Subscriber Plan / Payer (Ef fective 2014-Present) Name:ChemoMatias tuttle Member ID:[id number] Relation to Subscriber:Self Name:ChemoMatias tuttle Subscriber ID:[id number] Payer ID:[id number] Group ID:Not on file Type:Medicare Address: [employer] [address] [place] [address] MEDICARE PART A & B Member Subscriber Plan / Payer (Ef fective 2014-Present) Name:Matias Bryant Member ID:[id number] Relation to Subscriber:Self Name:ChemoMatias tuttle Subscriber ID:[id number] Payer ID:[id number] Group ID:Not on file Type:Medicare Address: [employer] [address] [place] [address] MEDICARE PART A & B [place] BL[place] MEDICARE PART A & B [place] & [place] BL[place] MEDICARE PART A & B MEDICARE HMO BLUE REPLACEMENT MEDICARE PART A & B MEDICARE HMO BLUE REPLACEMENT Care Teams Single Needle Operator Relationship Specialty Start Date End Date Antoine Echavarria DO PCP - General 12/23/16 Antoine Echavarria DO [address] [place] [id number] Insurance Assigned Provider 06/13/23 Additional Source Comments The information contained in this document represents components of the legal health record. It is not the complete legal health record.[facility]
--- OUTSIDE RECORDS SUMMARY | 2024-11-23 09:43 | XMS_ITS | Encounter Summary ---
Author Organization [facility] Address [address] [facility] [address] [place] [address] Phone Care Team Providers Care Gas Plumbing Inspector Name Role Phone Alexanh Anupam Madison DO Primary Care Provider [phone] Anupam Shaw DO Unavailable Encounter Details Date Type Department Care Team ([facility] st Contact Info) Description 06/15/2023 Transcribe Orders Virtual Department [address] [place] [address] Anupam Shaw DO [address] [facility] [place] [address] [place] [address] [email or web address] Other nonspecific abnormal finding of lung field (Primary Dx) Social History Tobacco Use Types Packs/Day Years Used Date Smoking Tobacco: Former Cigarettes 0 03/1990 - 03/2020 Smokeless Tobacco: Never Comments:using Chantix Alcohol Use Standard Drinks/Week Comments [...] with a working camera? Not on file Sex and Gender Information Value Date Recorded Sex Assigned at Not on file Legal Sex Male 9:59 PM EDT Gender Identity Not on file Sexual Orientation Not on file documented as of this encounter Plan of Treatment Not on file documented as of this encounter Visit Diagnoses Diagnosis Other nonspecific abnormal finding of lung field- Primary documented in this encounter Care Teams Gas Plumbing Inspector Relationship Specialty Start Date End Date Anupam Shaw DO [email or web address] PCP - General 12/23/16 Anupam Shaw DO [address] [place] [address] [email or web address] Insurance Assigned Provider 06/13/23 documented as of this encounter Additional Source Comments The information contained in this document represents components of the legal health record. It is not the complete legal health record.[facility]
--- OUTSIDE RECORDS SUMMARY | 2024-11-23 09:43 | XMS_ITS | Encounter Summary ---
Author Organization [facility] Address [address] [facility] [address] [place] [address] Phone Care Team Providers Care Road Contractor Name Role Phone Anupam Shaw DO Primary Care Provider Anupam Shaw DO Unavailable Encounter Details Date Type Department Care Team ([facility] st Contact Info) Description 01/16/2018 Transcribe Orders [facility] [address] [place] [address] Anupam Shaw DO [address] [place] [address] [email or web address] Essential hypertension, malignant (Primary Dx) Social History Tobacco Use Types Packs/Day Years Used Date Smoking Tobacco: Never Assessed Sex and Gender Information Value Date Recorded Sex Assigned at Not on file Legal Sex Male 9:59 PM EDT Gender Identity Not on file Sexual Orientation Not on file documented as of this encounter Plan of Treatment Not on file documented as of this encounter Procedures Procedure Name Priority Date/Time Associated Diagnosis Comments COMPREHENSIVE METABOLIC PANEL Routine 01/16/2018 10:16 AM EST Essential hypertension, malignant PSA (SCREENING) Routine 01/16/2018 10:16 AM EST Essential hypertension, malignant LIPID PANEL Routine 01/16/2018 10:16 AM EST Essential hypertension, malignant documented in this encounter Results * (ABNORMAL) Comprehensive metabolic panel (01/16/2018 10:16 AM EST) [facility] Signature SODIUM 139 133 - 146 mmol/L [facility] POTASSIUM 3.1(L) 3.3 - 5.1 mmol/L [facility] CHLORIDE 98 96 - 108 mmol/L [facility] CO2 24 21 - 35 mmol/L [facility] BUN 15 6 - 19 mg/dL [facility] CREATININE 0.90 0.5 - 1.5 mg/dL [facility] GLUCOSE 84 70 - 99 mg/dL [facility] ALBUMIN 4.1 3.9 - 4.8 g/dL [facility] TOTAL PROTEIN 7.1 6.5 - 8.0 g/dL [facility] CALCIUM 9.3 8.4 - 10.3 mg/dL [facility] ALKALINE PHOSPHATASE 82 39 - 117 U/L [facility] TOTAL BILIRUBIN 0.5 0.0 - 1.2 mg/dL [facility] AST 20 0 - 37 U/L [facility] ALT 21 0 - 40 U/L [facility] GLOBULIN 3.0 1 - 4.8 g/dL [facility] EGFR 89 >59 mL/min/1.7 3m2 [facility] Comment:If patient is black, multiply result by 1.159. Estimated glomerular filtration rate calculated using the CKD-EPI equation. ANION GAP 20 10 - 20 mmol/L [facility] Blood 01/16/2018 10:1 6 AM EST 01/16/2018 10:21 AM EST us Anupam A Bigda DO LAB BLOOD ORDERABLES Final Resul t [address] [address] * PSA (screening) (01/16/2018 10:16 AM EST) PSA 0.63 0 - 4.00 ng/mL [facility] Blood 01/16/2018 10:1 6 AM EST 01/16/2018 10:19 AM EST us Anupam A Bigda DO LAB BLOOD ORDERABLES Final Resul t [address] [address] * (ABNORMAL) Lipid panel (01/16/2018 10:16 AM EST) HDL 33 mg/dL [facility] Comment: Interpretation <40 mg/dL: Low HDL cholesterol (major risk factor for CHD) Greater than or equal to 60 mg/dL: High HDL cholesterol ( negative risk factor for CHD) HDL - cholesterol is affected by a number of factors, e.g. smoking, excerise, hormones, sex and age. CHOLESTEROL 178 0 - 240 mg/dL [facility] TRIGLYCERIDES 117 30 - 160 mg/dL [facility] LDL 122 50 - 129 mg/dL [facility] Comment: LDL levels in terms of risk for coronary heart disease: <100 mg/dL: Optimal 100-129 mg/dL: Near or above optimal 130-159 mg/dL: Borderline high 160-189 mg/dL: High >190 mg/dL: Very High CARDIAC RISK RATIO 5.4(H) 3.4 - 5.0 C [facility] Blood 01/16/2018 10:1 6 AM EST 01/16/2018 10:21 AM EST us Anupam Shaw DO LAB BLOOD ORDERABLES Final Resul t [facility] [address] [place] [address] documented in this encounter Visit Diagnoses Diagnosis Essential hypertension, malignant- Primary documented in this encounter Care Teams Road Contractor Relationship Specialty Start Date End Date Anupam Shaw DO [email or web address] PCP - General 12/23/16 Anupam Shaw DO [address] [place] [address] [email or web address] Insurance Assigned Provider 06/13/23 documented as of this encounter Additional Source Comments The information contained in this document represents components of the legal health record. It is not the complete legal health record.[facility]
--- OUTSIDE RECORDS SUMMARY | 2024-11-23 09:43 | XMS_ITS | Encounter Summary ---
Author Organization [facility] Address [address] [facility] [address] [place] [address] Phone Care Team Providers Care Through Operator Name Role Phone Anupam Shaw DO Primary Care Provider [phone] Anupam Shaw DO Unavailable Encounter Details Date Type Department Care Team ([facility] st Contact Info) Description 02/12/2019 Transcribe Orders [facility] [address] [place] [address] Anupam Shaw DO [address] [place] [address] [email or web address] Routine general medical examination at a health care facility (Primary Dx) Social History Tobacco Use Types Packs/Day Years Used Date Smoking Tobacco: Never Assessed Sex and Gender Information Value Date Recorded Sex Assigned at Not on file Legal Sex Male 9:59 PM EDT Gender Identity Not on file Sexual Orientation Not on file documented as of this encounter Plan of Treatment Not on file documented as of this encounter Results * Hepatitis C antibody, qualitative (02/12/2019 9:31 AM EST) HCV NON-REACTIV E NON-REACTI VE [facility] Blood 02/12/2019 9:31 AM EST 02/12/2019 9:34 AM EST us Anupam Shaw DO LAB BLOOD ORDERABLES Final Resul t [facility] [address] [place] [address] * Lipid panel (02/12/2019 9:31 AM EST) HDL 42 mg/dL [facility] Comment: Interpretation <40 mg/dL: Low HDL cholesterol (major risk factor for CHD) Greater than or equal to 60 mg/dL: High HDL cholesterol ( negative risk factor for CHD) HDL - cholesterol is affected by a number of factors, e.g. smoking, excerise, hormones, sex and age. CHOLESTEROL 176 0 - 240 mg/dL [facility] TRIGLYCERIDES 94 30 - 160 mg/dL [facility] LDL 115 50 - 129 mg/dL [facility] Comment: LDL levels in terms of risk for coronary heart disease: <100 mg/dL: Optimal 100-129 mg/dL: Near or above optimal 130-159 mg/dL: Borderline high 160-189 mg/dL: High >190 mg/dL: Very High CARDIAC RISK RATIO 4.2 3.4 - 5.0 C [facility] Blood 02/12/2019 9:31 AM EST 02/12/2019 9:34 AM EST us Anupam A Bigda DO LAB BLOOD ORDERABLES Final Resul t [address] [address] * PSA (screening) (02/12/2019 9:31 AM EST) PSA 0.68 0 - 4.00 ng/mL [facility] Blood 02/12/2019 9:31 AM EST 02/12/2019 9:33 AM EST us Anupam A Bigda DO LAB BLOOD ORDERABLES Final Resul t [address] [address] * (ABNORMAL) CBC and differential (02/12/2019 9:31 AM EST) WBC 12.04(H) 3.40 - 11.20 K/uL [facility] RBC 4.95 4.50 - 5.50 M/uL [facility] HGB 15.6 13.0 - 17.0 g/dL [facility] HCT 44.7 40.0 - 51.0 % [facility] PLT 456(H) 130 - 400 K/uL [facility] MCV 90.3 79.0 - 98.0 fL [facility] MCH 31.5 27.0 - 34.8 pg [facility] MCHC 34.9 31.5 - 36.0 g/dL [facility] RDW 13.4 10.8 - 14.6 % [facility] MPV 10.7 9.4 - 12.4 fl [facility] NRBC 0.00 0.00 /100 WBCs [facility] ABSOLUTE NRBC 0.00 0.00 K/uL [facility] DIFF METHOD Auto [facility] NEUTS 57.0 45.30 - 77.70 % [facility] LYMPHS 25.7 12.30 - 39.70 % [facility] MONOS 10.4 4.10 - 12.80 % [facility] EOS 5.6 0 - 7.2 % [facility] BASOS 1.1 0 - 2.80 % [facility] Granulocytes, immature (%) 0.2 0.0 - 0.9 % [facility] ABSOLUTE NEUTS 6.86 1.40 - 7.70 K/uL [facility] ABSOLUTE LYMPHS 3.09 0.60 - 3.20 K/uL [facility] ABSOLUTE MONOS 1.25(H) 0.11 - 0.59 K/uL [facility] ABSOLUTE EOS 0.68(H) 0.01 - 0.50 K/uL [facility] ABSOLUTE BASOS 0.13(H) 0.00 - 0.08 K/uL [facility] Granulocytes, immature 0.03 0.00 - 0.05 K/uL [facility] Blood 02/12/2019 9:31 AM EST 02/12/2019 9:34 AM EST us Anupam A Bigda DO LAB BLOOD ORDERABLES Final Resul t [facility] [address] [place] [address] * Comprehensive metabolic panel (02/12/2019 9:31 AM EST) SODIUM 141 133 - 146 mmol/L [facility] POTASSIUM 3.7 3.3 - 5.1 mmol/L [facility] CHLORIDE 103 96 - 108 mmol/L [facility] CO2 24 21 - 35 mmol/L [facility] BUN 13 6 - 19 mg/dL [facility] CREATININE 0.90 0.5 - 1.5 mg/dL [facility] GLUCOSE 96 70 - 99 mg/dL [facility] ALBUMIN 4.4 3.9 - 4.8 g/dL [facility] TOTAL PROTEIN 7.6 6.5 - 8.0 g/dL [facility] CALCIUM 9.8 8.4 - 10.3 mg/dL [facility] ALKALINE PHOSPHATASE 90 39 - 117 U/L [facility] TOTAL BILIRUBIN 0.4 0.0 - 1.2 mg/dL [facility] AST 24 0 - 37 U/L [facility] ALT 24 0 - 40 U/L [facility] GLOBULIN 3.2 1 - 4.8 g/dL [facility] EGFR 89 >59 mL/min/1.7 3m2 [facility] Comment:If patient is black, multiply result by 1.159. Estimated glomerular filtration rate calculated using the CKD-EPI equation. ANION GAP 18 10 - 20 mmol/L [facility] Blood 02/12/2019 9:31 AM EST 02/12/2019 9:34 AM EST Anupam Shaw DO LAB BLOOD ORDERABLES Final Resul t [facility] [address] [place] [address] documented in this encounter Visit Diagnoses Diagnosis Routine general medical examination at a health care facility- Primary documented in this encounter Care Teams Through Operator Relationship Specialty Start Date End Date Anupam Shaw DO PCP - General 12/23/16 Anupam Shaw DO [address] [place] [address] [email or web address] Insurance Assigned Provider 06/13/23 documented as of this encounter Additional Source Comments The information contained in this document represents components of the legal health record. It is not the complete legal health record.[facility]
--- OUTSIDE RECORDS SUMMARY | 2024-11-23 09:44 | XMS_ITS | Encounter Summary ---
Author Organization [facility] Address [address] [facility] [address] [place] [address] Phone Care Team Providers Care Typewriter Ribbon Winder Name Role Phone Alexanh Anupam Madison DO Primary Care Provider [phone] Anupam Shaw DO Unavailable Encounter Details Date Type Department Care Team ([facility] st Contact Info) Description 10/29/2020 Procedure Pass [facility] Endoscopy Admitting Dept Virtual Department [address] [place] [address] Social History Tobacco Use Types Packs/Day Years Used Date Smoking Tobacco: Former Cigarettes 0 03/1990 - 03/2020 Smokeless Tobacco: Never Comments:using [employer] Alcohol Use Standard Drinks/Week Comments Not Currently 0 (1 standard drink = 0.6 oz pur e alcohol) Sex and Gender Information Value Date Recorded Sex Assigned at Not on file Legal Sex Male 9:59 PM EDT Gender Identity Not on file Sexual Orientation Not on file documented as of this encounter Plan of Treatment Not on file documented as of this encounter Visit Diagnoses Not on filedocumented in this encounter Care Teams Typewriter Ribbon Winder Relationship Specialty Start Date End Date Anupam Shaw DO PCP - General 12/23/16 Anupam Shaw DO [address] [place] [id number] Insurance Assigned Provider 06/13/23 documented as of this encounter Additional Source Comments The information contained in this document represents components of the legal health record. It is not the complete legal health record.[facility]
--- OUTSIDE RECORDS SUMMARY | 2024-11-23 09:44 | XMS_ITS | Encounter Summary ---
Author Organization [facility] Address [address] [address] Phone Care Team Providers Care Sld Educational Aide Name Role Phone Anupam Shaw Primary Care Provider [phone] Anupam Shaw DO Unavailable Encounter Details Date Type Department Care Team (Late st Contact Info) Description 10/20/2024 Procedure Pass [facility] Endoscopy Admitting Dept Virtual Department [address] [place] [address] Social History Tobacco Use Types Packs/Day Years [...] on filedocumented in this encounter Care Teams Sld Educational Aide Relationship Specialty Start Date End Date Anupam Shaw DO [email or web address] PCP - General 12/23/16 Anupam Shaw DO [address] [place] [address] [email or web address] Insurance Assigned Provider 06/13/23 documented as of this encounter Additional Source Comments The information contained in this document represents components of the legal health record. It is not the complete legal health record.[facility]
--- OUTSIDE RECORDS SUMMARY | 2024-11-23 09:44 | XMS_ITS | Encounter Summary ---
Author Organization [facility] Address [address] [facility] [address] [place] [address] Phone Care Team Providers Care Carding Machine Operator Name Role Phone Anupam Shaw DO Primary Care Provider [phone] Anupam Shaw DO Unavailable Encounter Details Date Type Department Care Team ([facility] st Contact Info) Description 02/10/2017 Transcribe Orders [facility] Laboratory [address] [place] [address] Anupam Shaw DO [address] [place] [address] [email or web address] Essential hypertension, benign (Primary Dx) Social History Tobacco Use Types [...] Associated Diagnosis Comments COMPREHENSIVE METABOLIC PANEL Routine 02/10/2017 10:43 AM EST Essential hypertension, benign PSA (SCREENING) Routine 02/10/2017 10:43 AM EST Essential hypertension, benign LIPID PANEL Routine 02/10/2017 10:43 AM EST Essential hypertension, benign documented in this encounter Results * PSA (screening) (02/10/2017 10:43 AM EST) PSA 0.72 0 - 4.00 ng/mL [facility] Blood 02/10/2017 10:4 3 AM EST 02/10/2017 10:45 AM EST us Anupam Shaw DO LAB BLOOD ORDERABLES Final Resul t Performing Organization Address [facility] de Phone Number [address] [address] * (ABNORMAL) Lipid panel (02/10/2017 10:43 AM EST) HDL 38 mg/dL [facility] Comment: Interpretation: Risk Level Males Decreased >45 mg/dL Average 40-45 mg/dL Increased <40 mg/dL CHOLESTEROL 195 0 - 240 mg/dL [facility] TRIGLYCERIDES 129 30 - 160 mg/dL [facility] LDL 131(H) 50 - 129 mg/dL [facility] Comment: LDL levels in terms of risk for coronary heart disease: <100 mg/dL: Optimal 100-129 mg/dL: Near or above optimal 130-159 mg/dL: Borderline high 160-189 mg/dL: High >190 mg/dL: Very High CARDIAC RISK RATIO 5.1(H) 3.4 - 5.[address] [facility] Blood 02/10/2017 10:4 3 AM EST 02/10/2017 10:46 AM EST us Anupam Shaw DO LAB BLOOD ORDERABLES Final Resul t Performing Organization Address [facility] Co de Phone Number [address] [address] * Comprehensive metabolic panel (02/10/2017 10:43 AM EST) SODIUM 141 133 - 146 mmol/L [facility] POTASSIUM 3.8 3.3 - 5.1 mmol/L [facility] CHLORIDE 102 96 - 108 mmol/L [facility] CO2 28 21 - 35 mmol/L [facility] BUN 17 6 - 19 mg/dL [facility] CREATININE 1.00 0.5 - 1.5 mg/dL [facility] GLUCOSE 98 70 - 99 mg/dL [facility] ALBUMIN 4.2 3.9 - 4.8 g/dL [facility] TOTAL PROTEIN 7.1 6.5 - 8.0 g/dL [facility] CALCIUM 9.3 8.4 - 10.3 mg/dL [facility] ALKALINE PHOSPHATASE 78 39 - 117 U/L [facility] TOTAL BILIRUBIN 0.4 0 - 1.2 mg/dL [facility] AST 22 0 - 37 U/L [facility] ALT 26 0 - 40 U/L [facility] GLOBULIN 2.9 1 - 4.8 g/dL [facility] EGFR >60 60 - 1000 mL/min/1.7 3m2 [facility] Comment:Abnormal if <60. If patient is -[place], multiply the result by 1.21. ANION GAP 15 10 - 20 mmol/L [facility] Blood 02/10/2017 10:4 3 AM EST 02/10/2017 10:46 AM EST us Anupam Shaw DO LAB BLOOD ORDERABLES Final Resul t [facility] [address] [place] [address] documented in this encounter Visit Diagnoses Diagnosis Essential hypertension, benign- Primary documented in this encounter Care Teams Carding Machine Operator Relationship Specialty Start Date End Date Anupam Shaw DO PCP - General 12/23/16 Anupam Shaw DO [address] [place] [address] Insurance Assigned Provider 06/13/23 documented as of this encounter Additional Source Comments The information contained in this document represents components of the legal health record. It is not the complete legal health record.[facility]
[2024-11-23 13:16] LABS: MANUAL DIFF FLAG NO
[2024-11-23 13:28] LABS: Hematocrit 41.1 % (42.0-52.0); Hemoglobin 14.1 g/dl (14.0-18.0); Imm Gran Abs Auto 0.05 X10*3/uL (0.00-0.03); Imm Gran Pct Auto 0.4 % (0.0-0.4); Lymphocytes Absolute Auto 3.7 X10*3/uL (1.2-4.9); Mean Corpuscular HGB Conc 34.3 g/dl (31.0-36.0); Mean Corpuscular Hemoglobin 30.9 pg (27.0-33.0); Mean Corpuscular Volume 90.1 fL (80.0-98.0); NRBC Abs Auto 0.000 X10*3/uL (0.0-0.012); NRBC Pct Auto 0.0 /100WBC (0.0-0.2); Platelet Count 374 X10*3/uL (160-400); Red Blood Count 4.56 X10*6/uL (4.60-5.80); White Blood Count 12.6 X10*3/uL (4.8-10.8)
[2024-11-23 13:57] LABS: Alanine Aminotransferase 17 U/L (0-40); Albumin Level 4.3 g/dL (3.5-5.0); Alkaline Phosphatase 118 U/L (39-117); Anion Gap 11 (12-20); Aspartate Amino Transferase 29 U/L (5-37); Blood Urea Nitrogen 13 mg/dL (9-16); Calcium 9.3 mg/dL (8.4-10.2); Carbon Dioxide 26 mmol/L (22-29); Chloride 106 mmol/L (96-108); Cholesterol 116 mg/dL (<200); Estimated Glomerular Filt Rate > 60; HDL Cholesterol 36 mg/dL (>40); Potassium 3.9 mmol/L (3.3-5.1); Sodium 139 mmol/L (135-145); Total Protein 7.1 g/dL (6.5-8.0); Triglycerides 80 mg/dL (<150)
[2024-11-23 14:07] LABS: Prostate Specific Antigen 0.50 ng/mL (<0.05-4.0)
== END 2024-11-23 08:30 | disposition home or self-care (01) ==
LOC: HO.MANLDS 08:29
PROVIDERS: Visit Provider Internal Medicine
DX: Z12.5 Encounter for screening for malignant neoplasm of prostate (principal); I10 Essential (primary) hypertension
CPT/HCPCS: 36415; 80053; 80061; 84153; 85025